=== PATIENT | female | born 1940 | race Two or more races ===

== ENCOUNTER → 2018-08-04 | Outpatient (CLI) | payer MEDICARE ==
[2018-08-04 11:15] VITALS: BP 107/54
[2018-08-04 12:35] VITALS: BP 125/60
--- NOTE | 2018-08-04 12:35 | NUR ---
CHF PT SAW TODAY WITH SON AND DAUGHTER IN LAW IN ATTENDANCE. PT AMBULATED WITH CANE OR WALKER AND USE OF OXYGEN AT 4 LPM. PT IS KNOWN PAH PT WHO RECENTLY MOVED INTO [facility] FROM [place]. PT PROVIDED MEDICATION LIST AND IS CURRENTLY ON DUAL THERAPY OF TADALAFIL 20 MG PO DAILY AND OPSUMMIT 10 MG PO DAILY. PT CURRENTLY ON MULTIPLE INHALED MEDS VIA NEBULIZER. BASELINE EKG COMPLETED. 6 MIN WALK TEST ATTEMPTED AND ABORTED AFTER 3 LAPS DUE TO HYPOXIA DOWN TO 74 %. REVIEWED DISEASE PROCESS OF PAH AND PROVIDED TEACHING AND REVIEW OF CARDIODYNAMICS WITH PT, DAUGHTER IN LAW AND SON. QUESTIONS DENIED. PT REPORTS UNDERSTANDING OF HOW TO ACCESS CARE AT DR QUINTERO OFFICE AND AT CHF /PAH CLINIC AND DENIES QUESTIONS ABOUT ANY HEALTHCARE CONCERNS.LABS TO BE DRAWN IN 1 WEEK. Discharge Instructions See e-MAR for any mediations given with this visit. Patient education given on disease process. Patient verbalized understanding. Previous labs reviewed. Patient discharged in stable condition with after care instructions and follow up appointment FOR NEXT Tuesday08/11/18. BASELINE EKG CARDIODYNAMICS 6 MWT
== END | disposition home or self-care (01) ==
LOC: CHF HDHVI 11:29
PROVIDERS: ATTEND Internal Medicine Cardiovascular Disease
DX: I27.21 Secondary pulmonary arterial hypertension (principal); R06.00 Dyspnea, unspecified
CPT/HCPCS: 93701; 94618; G0463

== ENCOUNTER → 2018-08-11 | Outpatient (CLI) | payer MEDICARE ==
[2018-08-11 08:30] VITALS: BP 109/47
[2018-08-11 10:20] LABS: Basophils # (auto) 0 uL; Eosinophils # (auto) 0.2 uL; Eosinophils % (auto) 3.8 % (0.0-7.0); Hematocrit 41.4 % (36.0-46.0); Hemoglobin 13.3 g/dL (12.2-16.2); Lymphocytes % (auto) 21.8 % (10.0-50.0); Mean Corpuscular Hemoglobin 27.1 pg (28.0-32.0); Mean Corpuscular Hgb Conc. 32.2 g/dL (32.0-36.0); Mean Corpuscular Volume 83.9 fL (80.0-100.0); Monocytes # (auto) 0.5 uL; Monocytes % (auto) 10.2 % (0.0-12.0); Neutrophils # (auto) 2.8 uL; Neutrophils % (auto) 63.2 % (37.0-80.0); Nucleated Red Blood Cells % 0.1 %; Platelet Count (auto) 271 10^3/uL (140-450); Red Blood Cells 4.93 10^6/uL (4.0-5.20); Red Cell Distribution Width 15.6 % (11.8-14.3); White Blood Cell 4.5 10^3/uL (4.4-10.8)
[2018-08-11 10:34] LABS: INR 2.27 (0.9-1.15); Partial Thromboplastin Time 41.3 sec (23.78-33.04)
[2018-08-11 10:35] VITALS: BP 112/52
--- NOTE | 2018-08-11 10:35 | NUR ---
CHF CLINIC Discharge Instructions See e-MAR for any mediations given with this visit. Patient education given on disease process. Patient verbalized understanding. Previous labs reviewed. Patient discharged in stable condition with after care instructions and follow up appointment. NOTE CARDIODYNAMICS PERFORMED BY GAMA ULLOA AND REVIEWED WITH PT BY KIMO CHRISTIANSON. DISEASE PROCESS REVIEWED WITH PT BY KIMO CHRISTIANSON. ECHO AND LE DOPPLER ON 08/16, CTA CHEST ON 08/18. Addendum: 10/13/18 at 1356 by Joy Guerra RN RN CARDIODYNAMICS PERFORMED ON 08/04/18 AND REVIEWED WITH PATIENT AND FAMILY ON 08/11/18 BY KIMO CHRISTIANSON.
[2018-08-11 10:40] LABS: Albumin 3.5 g/dL (3.4-5.0); BUN/Creatinine Ratio 11.6; Calcium 8.7 mg/dL (8.5-10.1); Magnesium 2.2 mg/dL (1.6-2.6)
[2018-08-11 10:43] LABS: Bilirubin, Total 0.7 mg/dL (0.2-1.0); Total Protein 7.2 g/dL (6.4-8.2)
[2018-08-11 10:47] LABS: Potassium 3.8 mmol/L (3.5-5.1)
== END | disposition home or self-care (01) ==
LOC: CHF HDHVI 08:30
PROVIDERS: ATTEND Internal Medicine Cardiovascular Disease
DX: I70.0 Atherosclerosis of aorta (principal); I48.91 Unspecified atrial fibrillation; I49.9 Cardiac arrhythmia, unspecified; I50.9 Heart failure, unspecified; E78.5 Hyperlipidemia, unspecified; R79.1 Abnormal coagulation profile; E03.9 Hypothyroidism, unspecified; D51.9 Vitamin B12 deficiency anemia, unspecified; I27.20 Pulmonary hypertension, unspecified; I51.7 Cardiomegaly; Z79.899 Other long term (current) drug therapy
CPT/HCPCS: 36415; 71046; 80053; 80061; 80162; 82306; 82607; 83036; 83735; 83880; 84443; 85025; 85610; 85730; G0463; 93701

== ENCOUNTER → 2018-08-16 | Outpatient (CLI) | payer MEDICARE ==
[2018-08-16 16:02] LABS: Anion Gap 9 (5-15); Blood Urea Nitrogen 9 mg/dL (7-18); Carbon Dioxide 27 mmol/L (21-32); Chloride 107 mmol/L (98-107); Glucose 83 mg/dL (74-106); Potassium 3.7 mmol/L (3.5-5.1); Sodium 143 mmol/L (136-145)
[2018-08-16 16:06] LABS: BUN/Creatinine Ratio 7.8; GFR African American 58 mL/min; GFR Non-African American 48 mL/min
== END | disposition home or self-care (01) ==
LOC: Rad HDHVI 12:36
PROVIDERS: ATTEND Internal Medicine Cardiovascular Disease
DX: I08.1 Rheumatic disorders of both mitral and tricuspid valves (principal); R94.4 Abnormal results of kidney function studies; I27.0 Primary pulmonary hypertension; R06.02 Shortness of breath; I50.9 Heart failure, unspecified; I73.9 Peripheral vascular disease, unspecified
CPT/HCPCS: 36415; 80048; 93306; 93971

== ENCOUNTER → 2018-08-18 | Outpatient (CLI) | payer MEDICARE ==
[~2018-08-18] MED LIST: IOHEXOL 350 MG/ML 100ML IJ ONE
[2018-08-18 08:53] VITALS: BP 122/60
--- NOTE | 2018-08-18 08:53 | NUR ---
IV insertion IV access obtained by Sarita CHRISTIANSON, via clean sterile technique by inserting 20 gauge catheter at [facility] after 1 attempt(s). IV secured properly. No trauma to site. Patient tolerated procedure well.
--- NOTE | 2018-08-18 09:20 | NUR ---
IV removal IV DC'd with sterile technique, catheter fully intact. Pressure dressing applied to site. Patient tolerated procedure well.
[2018-08-18 09:25] VITALS: BP 128/58
--- NOTE | 2018-08-18 09:25 | NUR ---
CHF CLINIC Discharge Instructions See e-MAR for any mediations given with this visit. Patient education given on disease process. Patient verbalized understanding. Previous labs reviewed. Patient discharged in stable condition with after care instructions and follow up appointment. NOTE PATIENT EDUCATED TO DRINK PLENTY FLUIDS OVER THE 24 HOURS, PATIENT VERBALIZED UNDERSTANDING.
== END | disposition home or self-care (01) ==
LOC: Rad HDHVI 08:46
PROVIDERS: ATTEND Internal Medicine Cardiovascular Disease
DX: J43.2 Centrilobular emphysema (principal); R91.1 Solitary pulmonary nodule; R94.4 Abnormal results of kidney function studies; I27.21 Secondary pulmonary arterial hypertension
CPT/HCPCS: 36415; 71275; 82565; G0463; Q9967

== ENCOUNTER → 2018-09-15 | Outpatient (CLI) | payer MEDICARE | END | disposition home or self-care (01) | LOC: CHF HDHVI 11:36 | PROVIDERS: ATTEND Internal Medicine Cardiovascular Disease | DX: R79.1 Abnormal coagulation profile (principal) | CPT/HCPCS: 85610 ==

== ENCOUNTER → 2018-09-29 | Outpatient (CLI) | payer MEDICARE ==
[~2018-09-29] MED LIST changes: +CYANOCOBALAMIN (B-12) 1000 MCG/1 ML VIAL IM ONE; +CYANOCOBALAMIN (B-12) 1000 MCG/1 ML VIAL ONE; -IOHEXOL 350 MG/ML 100ML IJ ONE
[2018-09-29 09:30] VITALS: BP 125/55
--- NOTE | 2018-09-29 09:30 | NUR ---
CHF PT TO CHF CLINIC FOR TX AND EVAL. CARDIODYNAMICS AND V/S OBTAINED. PT A/O X 3 0 DISTRESS
[2018-09-29 11:20] VITALS: BP 125/49
--- NOTE | 2018-09-29 11:20 | NUR ---
Discharge Instructions See e-MAR for any mediations given with this visit. Patient education given on disease process. Patient verbalized understanding. Previous labs reviewed. Patient discharged in stable condition with after care instructions and follow up appointment. MEDICATIONS 1110 VITAMIN B12 1000MCG IM X 1 LEFT DELTOID
--- NOTE | 2018-09-29 11:27 | NUR ---
LABS INR, CMP, CBC SENT
[2018-09-29 16:22] LABS: Basophils # (auto) 0 uL; Basophils % (auto) 0.9 % (0.0-2.0); Eosinophils # (auto) 0.2 uL; Eosinophils % (auto) 4.2 % (0.0-7.0); Hematocrit 40.9 % (36.0-46.0); Hemoglobin 13.4 g/dL (12.2-16.2); Lymphocytes % (auto) 22.1 % (10.0-50.0); Mean Corpuscular Hemoglobin 27.4 pg (28.0-32.0); Mean Corpuscular Hgb Conc. 32.7 g/dL (32.0-36.0); Mean Corpuscular Volume 83.8 fL (80.0-100.0); Monocytes # (auto) 0.6 uL; Monocytes % (auto) 12.1 % (0.0-12.0); Neutrophils # (auto) 2.9 uL; Neutrophils % (auto) 60.7 % (37.0-80.0); Nucleated Red Blood Cells % 0.1 %; Platelet Count (auto) 248 10^3/uL (140-450); Red Blood Cells 4.88 10^6/uL (4.0-5.20); Red Cell Distribution Width 16.3 % (11.8-14.3); White Blood Cell 4.7 10^3/uL (4.4-10.8)
[2018-09-29 16:30] LABS: Albumin 3.5 g/dL (3.4-5.0); Bilirubin, Total 0.8 mg/dL (0.2-1.0); Calcium 8.9 mg/dL (8.5-10.1); Total Protein 7.5 g/dL (6.4-8.2)
== END | disposition home or self-care (01) ==
LOC: CHF HDHVI 09:10
PROVIDERS: ATTEND Internal Medicine Cardiovascular Disease
DX: I27.21 Secondary pulmonary arterial hypertension (principal); D64.9 Anemia, unspecified; I10 Essential (primary) hypertension; I73.9 Peripheral vascular disease, unspecified; I08.1 Rheumatic disorders of both mitral and tricuspid valves; I49.9 Cardiac arrhythmia, unspecified; I48.91 Unspecified atrial fibrillation; J43.2 Centrilobular emphysema; E78.5 Hyperlipidemia, unspecified; E03.9 Hypothyroidism, unspecified; Z79.899 Other long term (current) drug therapy
CPT/HCPCS: 36415; 80053; 85025; 85610; 93701; 96372; G0463; J3420

== ENCOUNTER → 2018-10-27 | Outpatient (CLI) | payer MEDICARE ==
[2018-10-27 11:25] VITALS: BP 111/52
--- NOTE | 2018-10-27 11:25 | NUR ---
IN WITH SON IN ATTENDANCE. WITHOUT DISTRESS OR DISCOMFORT. CARDIODYNAMICS DONE AND REVIEWED BY KIMO RN. OXYGEN IN USE AT 4LPM. PAH STATUS AND TEACHING DONE BY GAMA ULLOA AND KIMO RN. RX FOR CALCITROL 0.25 MG PO DAILY TO [facility] [phone] MEDICATION ADMINISTRATION VIT B12 1000 MG IM X 1 TO LEFT DELTOID AT 1115
[2018-10-27 12:40] LABS: Basophils # (auto) 0 uL; Basophils % (auto) 0.8 % (0.0-2.0); Eosinophils # (auto) 0.1 uL; Eosinophils % (auto) 2.4 % (0.0-7.0); Hematocrit 41.4 % (36.0-46.0); Hemoglobin 13.5 g/dL (12.2-16.2); Lymphocytes % (auto) 18.9 % (10.0-50.0); Mean Corpuscular Hemoglobin 27.4 pg (28.0-32.0); Mean Corpuscular Hgb Conc. 32.7 g/dL (32.0-36.0); Mean Corpuscular Volume 83.8 fL (80.0-100.0); Monocytes # (auto) 0.6 uL; Monocytes % (auto) 10.9 % (0.0-12.0); Neutrophils # (auto) 3.6 uL; Nucleated Red Blood Cells % 0.2 %; Platelet Count (auto) 244 10^3/uL (140-450); Red Blood Cells 4.94 10^6/uL (4.0-5.20); Red Cell Distribution Width 15.8 % (11.8-14.3); White Blood Cell 5.3 10^3/uL (4.4-10.8)
[2018-10-27 13:17] LABS: Albumin 3.4 g/dL (3.4-5.0); BUN/Creatinine Ratio 9.6; Calcium 8.9 mg/dL (8.5-10.1); Magnesium 2.7 mg/dL (1.6-2.6); Potassium 3.8 mmol/L (3.5-5.1)
[2018-10-27 13:19] LABS: Bilirubin, Total 0.8 mg/dL (0.2-1.0); Total Protein 7.3 g/dL (6.4-8.2)
== END | disposition home or self-care (01) ==
LOC: CHF HDHVI 09:28
PROVIDERS: ATTEND Internal Medicine Cardiovascular Disease
DX: I27.0 Primary pulmonary hypertension (principal); D64.9 Anemia, unspecified; I48.91 Unspecified atrial fibrillation; E83.40 Disorders of magnesium metabolism, unspecified; J43.9 Emphysema, unspecified; E78.5 Hyperlipidemia, unspecified; E03.9 Hypothyroidism, unspecified; Z79.899 Other long term (current) drug therapy
CPT/HCPCS: 36415; 80053; 83036; 83735; 85025; 85610; 93701; 96372; G0463; J3420

== ENCOUNTER → 2018-12-08 | Outpatient (CLI) | payer MEDICARE ==
--- NOTE | 2018-12-08 09:42 | NUR ---
PT. TO PAH CLINIC FOR EVAL. AND TX . PT. HAS BEEN ON ADEMPAS FOR ONE WEEK, AND PRESENTS WITH COPY OF B/P DAILY LOG. PT. STATES SHE HAS BEEN ON ADEMPAS 0.5 MG TID AND TOLERATING MEDS WEEL. ORDERS RECEIVED AND CARRIED OUT. SEE NSG ASSESS.
[2018-12-08 09:55] VITALS: BP 118/55
--- NOTE | 2018-12-08 10:00 | NUR ---
LABS DONE WITH INR 6.6.. MD ADVISED OF PREVIOUS LEVEL AND PT. FOLLOW UP INSTRUCTIONS ON DOSING. PT. TO HOLD COUMADIN X 3 DAYS, THEN DO 3MGON ODD DAYS, AND 2MG ON EVEN DAYS. PT. ALSO INSTRUCTED TO HOLD DIGOXIN FOR ONE MORE DAY, THIS EVENING. INSTRUCTIONS GIVEN IN WRITING AND ALSO GIVEN TO DAUGHTER IN LAW.
--- NOTE | 2018-12-08 10:05 | NUR ---
EKG DONE WITH RSR WITH NO ECTOPY. HR 58-60
[2018-12-08 10:55] VITALS: BP 122/59
--- NOTE | 2018-12-08 10:55 | NUR ---
Discharge Instructions See e-MAR for any mediations given with this visit. Patient education given on disease process. Patient verbalized understanding. Previous labs reviewed. Patient discharged in stable condition with after care instructions and follow up appointment. PT. TO RTC IN ONE WEEK FOR REPEAT INR.
[2018-12-08 12:09] LABS: Basophils # (auto) 0.1 uL; Basophils % (auto) 1.2 % (0.0-2.0); Eosinophils # (auto) 0.2 uL; Eosinophils % (auto) 3.3 % (0.0-7.0); Hematocrit 42.9 % (36.0-46.0); Lymphocytes % (auto) 21.3 % (10.0-50.0); Mean Corpuscular Hemoglobin 27.4 pg (28.0-32.0); Mean Corpuscular Hgb Conc. 32.7 g/dL (32.0-36.0); Mean Corpuscular Volume 83.7 fL (80.0-100.0); Monocytes # (auto) 0.6 uL; Monocytes % (auto) 11.7 % (0.0-12.0); Neutrophils % (auto) 62.5 % (37.0-80.0); Platelet Count (auto) 238 10^3/uL (140-450); Red Blood Cells 5.13 10^6/uL (4.0-5.20); Red Cell Distribution Width 15.6 % (11.8-14.3); White Blood Cell 4.8 10^3/uL (4.4-10.8)
[2018-12-08 12:22] LABS: Potassium 3.5 mmol/L (3.5-5.1)
== END | disposition home or self-care (01) ==
LOC: EDBD → CHF HDHVI 09:56
PROVIDERS: ATTEND Internal Medicine Cardiovascular Disease
DX: I48.91 Unspecified atrial fibrillation (principal); D64.9 Anemia, unspecified; E87.6 Hypokalemia; Z79.899 Other long term (current) drug therapy
CPT/HCPCS: 36415; 80162; 82565; 84132; 84520; 85025; 85610; 93005; G0463

== ENCOUNTER → 2018-12-15 | Outpatient (CLI) | payer MEDICARE ==
[2018-12-15 09:44] VITALS: BP 126/51
--- NOTE | 2018-12-15 10:00 | NUR ---
IN FOR PAH FOLLOWUP. PT REPORTS "SOME PAIN IN RIGHT SIDE WITH TAKING A DEEP BREATH, BUT ITS BETTER NOW". PT REMAINS ON OXYGEN AT 2LPM FROM HOME. CXR TO BE DONE.
[2018-12-15 10:30] VITALS: BP 121/57
--- NOTE | 2018-12-15 10:30 | NUR ---
CHF CLINIC Discharge Instructions See e-MAR for any mediations given with this visit. Patient education given on disease process. Patient verbalized understanding. Previous labs reviewed. Patient discharged in stable condition with after care instructions and follow up appointment. NOTE INR 2.4 DOSE TO REMAIN THE SAME. B12 IM L DELTOID ADMIN BY LANDON CHRISTIANSON.
== END | disposition home or self-care (01) ==
LOC: CHF HDHVI 09:46
PROVIDERS: ATTEND Internal Medicine Cardiovascular Disease
DX: I48.91 Unspecified atrial fibrillation (principal); I25.10 Atherosclerotic heart disease of native coronary artery without angina pectoris; R53.83 Other fatigue; I27.21 Secondary pulmonary arterial hypertension; R06.02 Shortness of breath; J43.9 Emphysema, unspecified; I10 Essential (primary) hypertension; I70.0 Atherosclerosis of aorta; I51.7 Cardiomegaly; E78.5 Hyperlipidemia, unspecified; E03.9 Hypothyroidism, unspecified; Z79.899 Other long term (current) drug therapy
CPT/HCPCS: 71046; 85610; 96372; G0463; J3420

== ENCOUNTER → 2018-12-29 | Outpatient (CLI) | payer MEDICARE ==
[2018-12-29 09:58] VITALS: BP 125/55
[2018-12-29 11:10] VITALS: BP 121/58
--- NOTE | 2018-12-29 11:10 | NUR ---
CHF CLINIC Discharge Instructions See e-MAR for any mediations given with this visit. Patient education given on disease process. Patient verbalized understanding. Previous labs reviewed. Patient discharged in stable condition with after care instructions and follow up appointment. NOTE INR 2.2 PATIENT WILL KEEP TAKING CURRENT DOSE OF COUMADIN. CARDIODYNAMICS PERFORMED RICHIE ULLOA AND REVIEWED BY CANDACE CHRISTIANSON.
[2018-12-29 15:56] LABS: Potassium 3.6 mmol/L (3.5-5.1)
== END | disposition home or self-care (01) ==
LOC: CHF HDHVI 10:04
PROVIDERS: ATTEND Internal Medicine Cardiovascular Disease
DX: E87.6 Hypokalemia (principal); R94.4 Abnormal results of kidney function studies; I27.21 Secondary pulmonary arterial hypertension
CPT/HCPCS: 36415; 82565; 84132; 84520; 85610; 93701; G0463

== ENCOUNTER → 2019-01-12 | Outpatient (CLI) | payer MEDICARE ==
[2019-01-12 09:45] VITALS: BP 108/45
--- NOTE | 2019-01-12 10:04 | NUR ---
IN TO CLINIC FOR PAH FOLLOWUP. OXYGEN IN USE AT 5 LPM WITH SPO2 AT 92 %. USES WALKER AND PORTABLE OXYGEN FROM HOME. WITHOUT COMPLAINT. REPORTS FEELING WELL BUT FATIGUED. FAMILY IN ATTENDANCE. STATUS REVIEWED AND MEDICATION EVALUATED. ALL CARE ADMINISTERED BY CANDACE CHRISTIANSON. DISCHARGED TO SELF CARE WITH FAMILY IN ATTENDANCE. MEDICATION ADMINISTRATION VIT B12 IM TO LEFT DELTOID AT 1000
[2019-01-12 10:09] VITALS: BP 111/50
[2019-01-12 12:17] LABS: Basophils # (auto) 0 uL; Basophils % (auto) 0.8 % (0.0-2.0); Eosinophils # (auto) 0.2 uL; Eosinophils % (auto) 3.6 % (0.0-7.0); Hematocrit 41.5 % (36.0-46.0); Hemoglobin 13.9 g/dL (12.2-16.2); Lymphocytes # (auto) 1.3 uL; Lymphocytes % (auto) 21.7 % (10.0-50.0); Mean Corpuscular Hemoglobin 28.1 pg (28.0-32.0); Mean Corpuscular Hgb Conc. 33.5 g/dL (32.0-36.0); Mean Corpuscular Volume 83.8 fL (80.0-100.0); Monocytes # (auto) 0.6 uL; Monocytes % (auto) 9.6 % (0.0-12.0); Neutrophils # (auto) 3.8 uL; Neutrophils % (auto) 64.3 % (37.0-80.0); Nucleated Red Blood Cells % 0.1 %; Platelet Count (auto) 244 10^3/uL (140-450); Red Blood Cells 4.96 10^6/uL (4.0-5.20); Red Cell Distribution Width 15.6 % (11.8-14.3); White Blood Cell 5.8 10^3/uL (4.4-10.8)
[2019-01-12 13:17] LABS: Albumin 3.6 g/dL (3.4-5.0); Calcium 8.8 mg/dL (8.5-10.1); Magnesium 2.4 mg/dL (1.6-2.6); Potassium 3.8 mmol/L (3.5-5.1)
[2019-01-12 13:19] LABS: BUN/Creatinine Ratio 10.8
[2019-01-12 13:25] LABS: Total Protein 7.2 g/dL (6.4-8.2)
== END | disposition home or self-care (01) ==
LOC: CHF HDHVI 09:42
PROVIDERS: ATTEND Internal Medicine Cardiovascular Disease
DX: I27.21 Secondary pulmonary arterial hypertension (principal); R53.83 Other fatigue; I48.91 Unspecified atrial fibrillation; I25.10 Atherosclerotic heart disease of native coronary artery without angina pectoris; I10 Essential (primary) hypertension; D64.9 Anemia, unspecified; E83.40 Disorders of magnesium metabolism, unspecified; J43.9 Emphysema, unspecified; E78.5 Hyperlipidemia, unspecified; E03.9 Hypothyroidism, unspecified; Z79.899 Other long term (current) drug therapy; Z99.81 Dependence on supplemental oxygen
CPT/HCPCS: 36415; 80053; 83735; 85025; 96372; G0463; J3420

== ENCOUNTER → 2019-01-22 | Outpatient (CLI) | payer MEDICARE, MEDICAID ==
[~2019-01-22] MED LIST changes: +ALBUAER3 IN; +ATOR10TA52 PO; -CYANOCOBALAMIN (B-12) 1000 MCG/1 ML VIAL IM ONE; -CYANOCOBALAMIN (B-12) 1000 MCG/1 ML VIAL ONE; +DIGO0.1262 PO; +FURO40TA4 PO; +MACI1TAB2 PO; +PANT40TA2 PO; +POTA-220 PO; +WARF2TAB49 PO; +WARF3TAB22 PO
[2019-01-22 10:25] VITALS: BP 106/48
[2019-01-22 10:54] VITALS: BP 116/50
--- NOTE | 2019-01-22 10:54 | NUR ---
PRE-OP FOR LEFT AND RIGHT HEART CATH FOR 01/25/19 Pre-Op Discharge Summary: See e-MAR for any medications given for this visit. Pre-op orders received and carried out per MD of EKG, LABS and chest xrays. Patient given a copy of EKG with instructions to go to [facility] out patient for further follow up care.
[2019-01-22 11:57] LABS: Basophils # (auto) 0 uL; Basophils % (auto) 0.8 % (0.0-2.0); Eosinophils # (auto) 0.2 uL; Eosinophils % (auto) 4.3 % (0.0-7.0); Hematocrit 41.6 % (36.0-46.0); Hemoglobin 13.8 g/dL (12.2-16.2); Lymphocytes # (auto) 1.2 uL; Lymphocytes % (auto) 21.7 % (10.0-50.0); Mean Corpuscular Hemoglobin 27.9 pg (28.0-32.0); Mean Corpuscular Hgb Conc. 33.3 g/dL (32.0-36.0); Mean Corpuscular Volume 83.8 fL (80.0-100.0); Monocytes # (auto) 0.5 uL; Monocytes % (auto) 9.8 % (0.0-12.0); Neutrophils # (auto) 3.5 uL; Neutrophils % (auto) 63.4 % (37.0-80.0); Nucleated Red Blood Cells % 0.1 %; Platelet Count (auto) 259 10^3/uL (140-450); Red Blood Cells 4.97 10^6/uL (4.0-5.20); Red Cell Distribution Width 16.2 % (11.8-14.3); White Blood Cell 5.5 10^3/uL (4.4-10.8)
[2019-01-22 12:07] LABS: Potassium 3.8 mmol/L (3.5-5.1)
[2019-01-22 12:10] LABS: INR 1.51 (0.9-1.15)
[2019-01-22 12:12] LABS: BUN/Creatinine Ratio 8.7; Calcium 8.9 mg/dL (8.5-10.1)
== END | disposition home or self-care (01) ==
LOC: Rad HDHVI 09:58
PROVIDERS: ATTEND Internal Medicine Cardiovascular Disease
DX: Z01.812 Encounter for preprocedural laboratory examination (principal); R79.1 Abnormal coagulation profile
CPT/HCPCS: 36415; 71046; 80048; 85025; 85610; 85730; 93005; G0463

== ENCOUNTER 2019-01-25 06:55 | Day surgery (SDC) | payer MEDICARE, MEDICAID ==
[~2019-01-25] VITALS: Ht 157.5 cm; Wt 68.9 kg
[2019-01-25] MEDS ORDERED: IOHEXOL 350 MG/ML 100ML IJ ONE (07:43)
[2019-01-25] MEDS ORDERED: LIDOCAINE 2%HCL (LOCAL ANESTH.) INJ 20ML MDV ONE (07:44)
[2019-01-25] MEDS ORDERED: fentaNYL CITRATE 100 MCG/2 ML VL ONE (08:59)
[2019-01-25] MEDS ORDERED: ANGIOMAX 250 MG VIAL IV ONE (08:59)
[2019-01-25] MEDS ORDERED: SODIUM CHL 0.9% 0 ML ONE (09:00)
[2019-01-25] MEDS ORDERED: MIDAZOLAM HCL 1MG/1ML-2 ML VIAL ONE (09:00)
== END 2019-01-25 12:20 | disposition home or self-care (01) ==
LOC: CATH 06:55
PROVIDERS: ATTEND Internal Medicine Cardiovascular Disease
DX: I27.20 Pulmonary hypertension, unspecified (principal); E78.5 Hyperlipidemia, unspecified; J44.9 Chronic obstructive pulmonary disease, unspecified; Z87.891 Personal history of nicotine dependence; I11.0 Hypertensive heart disease with heart failure; I50.9 Heart failure, unspecified; Z86.718 Personal history of other venous thrombosis and embolism; Z79.899 Other long term (current) drug therapy
CPT/HCPCS: 93460; C1760; C1894; J1644; J2250; J3010; Q9967; 99152; 99153

== ENCOUNTER → 2019-02-16 | Outpatient (CLI) | payer MEDICARE, MEDICAID ==
[~2019-02-16] VITALS: Ht 30.5 cm; Wt 69.4 kg
[~2019-02-16] MED LIST changes: +CYANOCOBALAMIN (B-12) 1000 MCG/1 ML VIAL IM ONE; +CYANOCOBALAMIN (B-12) 1000 MCG/1 ML VIAL ONE
[2019-02-16 09:30] VITALS: BP 113/38
[2019-02-16 11:16] VITALS: BP 119/58
--- NOTE | 2019-02-16 11:16 | NUR ---
Discharge Instructions See e-MAR for any mediations given with this visit. Patient education given on disease process. Patient verbalized understanding. Previous labs reviewed. Patient discharged in stable condition with after care instructions and follow up appointment. NOTE: CARDIODYNAMICS 6MWT VIT B12 RIGHT DELTOID PATIENT TO TITRATE ADEMPAS UP TO 2.0 MG TID WITH NEXT MEDICATION REFILL
== END | disposition home or self-care (01) ==
LOC: CHF HDHVI 09:45
PROVIDERS: ATTEND Internal Medicine Cardiovascular Disease
DX: I27.21 Secondary pulmonary arterial hypertension (principal); R06.02 Shortness of breath; R53.83 Other fatigue; J44.9 Chronic obstructive pulmonary disease, unspecified; I50.9 Heart failure, unspecified; E78.5 Hyperlipidemia, unspecified; I25.10 Atherosclerotic heart disease of native coronary artery without angina pectoris; I48.91 Unspecified atrial fibrillation; E03.9 Hypothyroidism, unspecified; Z79.899 Other long term (current) drug therapy; Z87.891 Personal history of nicotine dependence; Z86.718 Personal history of other venous thrombosis and embolism; Z79.01 Long term (current) use of anticoagulants; Z99.81 Dependence on supplemental oxygen
CPT/HCPCS: 85610; 93701; 94618; 96372; G0463; J3420

== ENCOUNTER → 2019-03-21 | Outpatient (CLI) | payer MEDICARE, MEDICAID ==
[~2019-03-21] MED LIST changes: -CYANOCOBALAMIN (B-12) 1000 MCG/1 ML VIAL IM ONE; -CYANOCOBALAMIN (B-12) 1000 MCG/1 ML VIAL ONE
== END | disposition home or self-care (01) ==
LOC: LAB 12:22
PROVIDERS: ATTEND Internal Medicine Cardiovascular Disease
DX: I11.0 Hypertensive heart disease with heart failure (principal); I50.23 Acute on chronic systolic (congestive) heart failure
CPT/HCPCS: 83880

== ENCOUNTER → 2019-03-30 | Outpatient (CLI) | payer MEDICARE, MEDICAID ==
[~2019-03-30] MED LIST changes: +CYANOCOBALAMIN (B-12) 1000 MCG/1 ML VIAL IM ONE; +CYANOCOBALAMIN (B-12) 1000 MCG/1 ML VIAL ONE
[2019-03-30 08:45] VITALS: BP 99/44
[2019-03-30 09:57] VITALS: BP 111/55
--- NOTE | 2019-03-30 09:57 | NUR ---
CHF CLINIC Discharge Instructions See e-MAR for any mediations given with this visit. Patient education given on disease process. Patient verbalized understanding. Previous labs reviewed. Patient discharged in stable condition with after care instructions and follow up appointment. NOTES INR checked 2.1, pt to continue current Coumadin dose B12 IM L DELTOID ADMIN BY GAMA ULLOA CARDIODYNAMICS, REVIEW WITH PT BY CANDACE CHRISTIANSON AND COPY PROVIDED TO PT.
[2019-03-30 11:40] LABS: Basophils # (auto) 0 uL; Basophils % (auto) 0.9 % (0.0-2.0); Eosinophils # (auto) 0.2 uL; Eosinophils % (auto) 3.4 % (0.0-7.0); Hematocrit 42.7 % (36.0-46.0); Hemoglobin 14.1 g/dL (12.2-16.2); Lymphocytes # (auto) 0.9 uL; Lymphocytes % (auto) 19.1 % (10.0-50.0); Mean Corpuscular Hemoglobin 27.3 pg (28.0-32.0); Mean Corpuscular Hgb Conc. 33.1 g/dL (32.0-36.0); Mean Corpuscular Volume 82.5 fL (80.0-100.0); Monocytes # (auto) 0.5 uL; Neutrophils % (auto) 65.6 % (37.0-80.0); Nucleated Red Blood Cells % 0.2 %; Platelet Count (auto) 258 10^3/uL (140-450); Red Blood Cells 5.18 10^6/uL (4.0-5.20); Red Cell Distribution Width 15.9 % (11.8-14.3); White Blood Cell 4.6 10^3/uL (4.4-10.8)
[2019-03-30 11:49] LABS: Albumin 3.5 g/dL (3.4-5.0); Calcium 8.6 mg/dL (8.5-10.1); Magnesium 2.8 mg/dL (1.6-2.6); Potassium 3.8 mmol/L (3.5-5.1)
[2019-03-30 11:53] LABS: BUN/Creatinine Ratio 12.8; Total Protein 7.4 g/dL (6.4-8.2)
== END | disposition home or self-care (01) ==
LOC: CHF HDHVI 08:44
PROVIDERS: ATTEND Internal Medicine Cardiovascular Disease
DX: I27.21 Secondary pulmonary arterial hypertension (principal); I48.91 Unspecified atrial fibrillation; I11.0 Hypertensive heart disease with heart failure; I50.22 Chronic systolic (congestive) heart failure; I25.10 Atherosclerotic heart disease of native coronary artery without angina pectoris; D64.9 Anemia, unspecified; E83.40 Disorders of magnesium metabolism, unspecified; R53.83 Other fatigue; J44.9 Chronic obstructive pulmonary disease, unspecified; E78.5 Hyperlipidemia, unspecified; E03.9 Hypothyroidism, unspecified; Z79.01 Long term (current) use of anticoagulants; Z87.891 Personal history of nicotine dependence; Z79.899 Other long term (current) drug therapy; Z86.718 Personal history of other venous thrombosis and embolism; Z99.81 Dependence on supplemental oxygen
CPT/HCPCS: 36415; 80053; 80162; 83735; 85025; 93701; 96372; G0463; J3420

== ENCOUNTER → 2019-04-13 | Outpatient (CLI) | payer MEDICARE, MEDICAID ==
[~2019-04-13] MED LIST changes: -CYANOCOBALAMIN (B-12) 1000 MCG/1 ML VIAL IM ONE; -CYANOCOBALAMIN (B-12) 1000 MCG/1 ML VIAL ONE; +DIGO0.12 PO; -DIGO0.1262 PO; +IOHEXOL 350 MG/ML 100ML IJ ONE
[2019-04-13 11:41] VITALS: BP 126/41
--- NOTE | 2019-04-13 11:45 | NUR ---
IV insertion IV access obtained, via clean sterile technique by inserting 22 gauge catheter at RAC after 1 attempt(s). IV secured properly. No trauma to site. Patient tolerated procedure well.
--- NOTE | 2019-04-13 13:35 | NUR ---
IV removal IV DC'd with sterile technique, catheter fully intact. Pressure dressing applied to site. Patient tolerated procedure well.
[2019-04-13 13:37] VITALS: BP 110/52
--- NOTE | 2019-04-13 13:37 | NUR ---
CHF CLINIC Discharge Instructions See e-MAR for any mediations given with this visit. Patient education given on disease process. Patient verbalized understanding. Previous labs reviewed. Patient discharged in stable condition with after care instructions and follow up appointment. NOTE PATIENT EDUCATED TO DRINK PLENTY OF FLUIDS, PATIENT VERBALIZED UNDERSTANDING.
== END | disposition home or self-care (01) ==
LOC: Rad HDHVI 11:29
PROVIDERS: ATTEND Internal Medicine Cardiovascular Disease
DX: I67.2 Cerebral atherosclerosis (principal); I67.82 Cerebral ischemia; I67.1 Cerebral aneurysm, nonruptured; R94.4 Abnormal results of kidney function studies
CPT/HCPCS: 36415; 70470; 82565; G0463; Q9967

== ENCOUNTER → 2019-05-02 | Outpatient (CLI) | payer MEDICARE, MEDICAID ==
[~2019-05-02] VITALS: Ht 30.5 cm; Wt 67.0 kg
[~2019-05-02] MED LIST changes: +CYANOCOBALAMIN (B-12) 1000 MCG/1 ML VIAL IM ONE; +CYANOCOBALAMIN (B-12) 1000 MCG/1 ML VIAL ONE; -IOHEXOL 350 MG/ML 100ML IJ ONE
[2019-05-02 10:00] VITALS: BP 92/50
[2019-05-02 11:08] VITALS: BP 160/55
--- NOTE | 2019-05-02 11:08 | NUR ---
CHF CLINIC Discharge Instructions See e-MAR for any mediations given with this visit. Patient education given on disease process. Patient verbalized understanding. Previous labs reviewed. Patient discharged in stable condition with after care instructions and follow up appointment. NOTES CARDIODYNAMICS PERFORMED BY GAMA ULLOA, RESULTS REVIEWED WITH PT BY CANDACE CHRISTIANSON AND COPY PROVIDED TO PT. VIT B12 IM X1 LEFT DELTOID INR CHECKED BY GAMA CHRISTIANSON, INR 2.2. PT EDUCATED TO CONTINUE CURRENT COUMADIN REGIMEN OF ALTERNATING 2 MG AND 3 MG. PT VERBALIZED UNDERSTANDING.
== END | disposition home or self-care (01) ==
LOC: CHF HDHVI 08:53
PROVIDERS: ATTEND Internal Medicine Cardiovascular Disease
DX: I27.21 Secondary pulmonary arterial hypertension (principal); I11.0 Hypertensive heart disease with heart failure; I50.23 Acute on chronic systolic (congestive) heart failure; I48.91 Unspecified atrial fibrillation; R42 Dizziness and giddiness; R53.83 Other fatigue; R06.02 Shortness of breath; R07.89 Other chest pain; Z79.899 Other long term (current) drug therapy
CPT/HCPCS: 85610; 93306; 93701; 96372; G0463; J3420

== ENCOUNTER → 2019-06-04 | Outpatient (CLI) | payer MEDICARE, MEDICAID ==
[2019-06-04 10:45] VITALS: BP 97/48
[2019-06-04 11:09] VITALS: BP 96/47
--- NOTE | 2019-06-04 11:09 | NUR ---
CHF CLINIC Discharge Instructions See e-MAR for any mediations given with this visit. Patient education given on disease process. Patient verbalized understanding. Previous labs reviewed. Patient discharged in stable condition with after care instructions and follow up appointment ONE MONTH. NOTE B12 IM L DELTOID ADMIN BY CANDACE CHRISTIANSON INR 2.3, PATIENT WILL STAY ON 2/3 MG OF COUMADIN DAILY.
[2019-06-04 12:17] LABS: Eosinophils # (auto) 0.1 uL; Monocytes # (auto) 0.5 uL; Neutrophils # (auto) 3.2 uL
[2019-06-04 12:20] LABS: Basophils # (auto) 0.1 uL; Basophils % (auto) 1.1 % (0.0-2.0); Eosinophils % (auto) 2.6 % (0.0-7.0); Hematocrit 44.8 % (36.0-46.0); Hemoglobin 14.6 g/dL (12.2-16.2); Lymphocytes % (auto) 20.3 % (10.0-50.0); Mean Corpuscular Hemoglobin 26.4 pg (28.0-32.0); Mean Corpuscular Hgb Conc. 32.7 g/dL (32.0-36.0); Mean Corpuscular Volume 80.8 fL (80.0-100.0); Nucleated Red Blood Cells % 0.1 %; Platelet Count (auto) 248 10^3/uL (140-450); Red Blood Cells 5.54 10^6/uL (4.0-5.20); White Blood Cell 4.8 10^3/uL (4.4-10.8)
[2019-06-04 12:31] LABS: Albumin 3.8 g/dL (3.4-5.0); Calcium 9.4 mg/dL (8.5-10.1); Magnesium 2.1 mg/dL (1.6-2.6); Potassium 3.4 mmol/L (3.5-5.1)
[2019-06-04 12:35] LABS: BUN/Creatinine Ratio 8.7; Bilirubin, Total 1.2 mg/dL (0.2-1.0)
== END | disposition home or self-care (01) ==
LOC: LAB 09:48
PROVIDERS: ATTEND Internal Medicine Cardiovascular Disease
DX: I27.21 Secondary pulmonary arterial hypertension (principal); I11.0 Hypertensive heart disease with heart failure; I50.22 Chronic systolic (congestive) heart failure; I48.91 Unspecified atrial fibrillation; R53.83 Other fatigue; D64.9 Anemia, unspecified; Z99.81 Dependence on supplemental oxygen; Z79.899 Other long term (current) drug therapy
CPT/HCPCS: 36415; 80053; 83036; 83735; 85025; 85610; 93701; 96372; G0463; J3420

== ENCOUNTER → 2019-08-21 | Outpatient (CLI) | payer MEDICARE, MEDICAID ==
[~2019-08-21] MED LIST changes: -CYANOCOBALAMIN (B-12) 1000 MCG/1 ML VIAL IM ONE; -CYANOCOBALAMIN (B-12) 1000 MCG/1 ML VIAL ONE
== END | disposition home or self-care (01) ==
LOC: Rad HDHVI 14:53
PROVIDERS: ATTEND Internal Medicine Cardiovascular Disease
DX: I27.21 Secondary pulmonary arterial hypertension (principal)
CPT/HCPCS: 93306

== ENCOUNTER → 2019-10-02 | Outpatient (CLI) | payer MEDICARE, MEDICAID ==
[~2019-10-02] VITALS: Ht 30.5 cm; Wt 0.5 kg
[~2019-10-02] MED LIST changes: +D5W/SOD CHLO 0.9% 1,000 ML IV ONE; +KETOROLAC TROMETH 30 MG/ML 1ML VIAL IM ONE; +KETOROLAC TROMETH 30 MG/ML 1ML VIAL IV ONE; +KETOROLAC TROMETH 60MG/2ML VIAL ONE; +READI-CAT 2 (BARIUM SULF)(VANILLA SMOOTHIE) 450ML ONE; +SODIUM CHLORIDE 0.9% 500 ML IV ONE
[2019-10-02 14:43] LABS: Basophils # (auto) 0.1 10 ^3/uL (0-0.2); Basophils % (auto) 0.9 % (0.0-2.0); Eosinophils # (auto) 0.2 10 ^3/uL (0-0.8); Eosinophils % (auto) 2.2 % (0.0-7.0); Hematocrit 46.8 % (36.0-46.0); Hemoglobin 15.5 g/dL (12.2-16.2); Lymphocytes # (auto) 0.9 10 ^3/uL (0.4-5.4); Lymphocytes % (auto) 12.6 % (10.0-50.0); Mean Corpuscular Volume 84.8 fL (80.0-100.0); Monocytes # (auto) 0.5 10 ^3/uL (0-1.3); Monocytes % (auto) 7.6 % (0.0-12.0); Neutrophils # (auto) 5.4 10 ^3/uL (1.6-8.6); Neutrophils % (auto) 76.7 % (37.0-80.0); Nucleated Red Blood Cells % 0.1 %; Platelet Count (auto) 281 10^3/uL (140-450); Red Blood Cells 5.52 10^6/uL (4.0-5.20); Red Cell Distribution Width 15.3 % (11.8-14.3); White Blood Cell 7.1 10^3/uL (4.4-10.8)
[2019-10-02 14:52] LABS: Calcium 9.3 mg/dL (8.5-10.1); Potassium 3.7 mmol/L (3.5-5.1)
[2019-10-02 14:55] LABS: BUN/Creatinine Ratio 10.3; Bilirubin, Total 1.7 mg/dL (0.2-1.0); Total Protein 8.1 g/dL (6.4-8.2)
== END | disposition home or self-care (01) ==
LOC: Rad HDHVI 12:23
PROVIDERS: ATTEND Internal Medicine Cardiovascular Disease
DX: K90.9 Intestinal malabsorption, unspecified (principal); R11.2 Nausea with vomiting, unspecified; I10 Essential (primary) hypertension; D64.9 Anemia, unspecified; K44.9 Diaphragmatic hernia without obstruction or gangrene; R91.8 Other nonspecific abnormal finding of lung field
CPT/HCPCS: 36415; 74176; 80053; 82306; 85025; 96361; 96372; 96374; G0463; J1642; J1885; J7040; J7070; 96360; 96367

== ENCOUNTER → 2019-10-03 | Outpatient (CLI) | payer MEDICARE, MEDICAID ==
[~2019-10-03] MED LIST changes: +D5 IV ONE; -D5W/SOD CHLO 0.9% 1,000 ML IV ONE; +GASTROGRAFIN 120 ML SOL ONE; -KETOROLAC TROMETH 30 MG/ML 1ML VIAL IM ONE; -KETOROLAC TROMETH 30 MG/ML 1ML VIAL IV ONE; -KETOROLAC TROMETH 60MG/2ML VIAL ONE; -READI-CAT 2 (BARIUM SULF)(VANILLA SMOOTHIE) 450ML ONE; +SOD CHLO IV ONE; +SODIUM CHLORIDE 0.9% 250 ML IV ONE; -SODIUM CHLORIDE 0.9% 500 ML IV ONE
[2019-10-03 10:36] LABS: Basophils # (auto) 0 10 ^3/uL (0-0.2); Basophils % (auto) 0.3 % (0.0-2.0); Eosinophils # (auto) 0.1 10 ^3/uL (0-0.8); Eosinophils % (auto) 2.5 % (0.0-7.0); Hematocrit 44.7 % (36.0-46.0); Hemoglobin 14.4 g/dL (12.2-16.2); Lymphocytes # (auto) 0.6 10 ^3/uL (0.4-5.4); Lymphocytes % (auto) 11.9 % (10.0-50.0); Mean Corpuscular Hemoglobin 27.6 pg (28.0-32.0); Mean Corpuscular Hgb Conc. 32.2 g/dL (32.0-36.0); Mean Corpuscular Volume 85.7 fL (80.0-100.0); Monocytes # (auto) 0.4 10 ^3/uL (0-1.3); Neutrophils # (auto) 4.2 10 ^3/uL (1.6-8.6); Neutrophils % (auto) 77.3 % (37.0-80.0); Nucleated Red Blood Cells % 0.1 %; Platelet Count (auto) 259 10^3/uL (140-450); Red Blood Cells 5.22 10^6/uL (4.0-5.20); Red Cell Distribution Width 15.4 % (11.8-14.3); White Blood Cell 5.4 10^3/uL (4.4-10.8)
[2019-10-03 10:58] LABS: Potassium 3.9 mmol/L (3.5-5.1)
[2019-10-03 15:30] VITALS: BP 105/44
[2019-10-03 16:20] VITALS: BP 97/51
== END | disposition home or self-care (01) ==
LOC: CHF HDHVI 09:12
PROVIDERS: ATTEND Internal Medicine Cardiovascular Disease
DX: E86.0 Dehydration (principal); I27.21 Secondary pulmonary arterial hypertension; R06.02 Shortness of breath; E87.6 Hypokalemia; R53.83 Other fatigue; R53.1 Weakness; R94.4 Abnormal results of kidney function studies; J98.11 Atelectasis; I10 Essential (primary) hypertension; Z99.81 Dependence on supplemental oxygen
CPT/HCPCS: 36415; 71046; 74018; 74250; 82565; 84132; 84520; 85025; 96360; 96361; G0463; J7050; J7060; Q9963

== ENCOUNTER 2019-10-20 21:25 | Inpatient (IN) | payer MEDICARE, MEDICAID ==
[~2019-10-20] VITALS: Ht 157.5 cm; Wt 64.7 kg
[~2019-10-20 21:25] MED LIST changes: -D5 IV ONE; -GASTROGRAFIN 120 ML SOL ONE; -SOD CHLO IV ONE; -SODIUM CHLORIDE 0.9% 250 ML IV ONE
[2019-10-20 22:41] LABS: Basophils # (auto) 0 10 ^3/uL (0-0.2); Eosinophils # (auto) 0.1 10 ^3/uL (0-0.8); Eosinophils % (auto) 1.3 % (0.0-7.0); Lymphocytes # (auto) 0.6 10 ^3/uL (0.4-5.4); Mean Corpuscular Hgb Conc. 32.7 g/dL (32.0-36.0); Monocytes # (auto) 0.5 10 ^3/uL (0-1.3)
[2019-10-20 22:43] LABS: Basophils % (auto) 0.5 % (0.0-2.0); Hematocrit 50.2 % (36.0-46.0); Hemoglobin 16.4 g/dL (12.2-16.2); Lymphocytes % (auto) 7.5 % (10.0-50.0); Mean Corpuscular Hemoglobin 27.6 pg (28.0-32.0); Mean Corpuscular Volume 84.5 fL (80.0-100.0); Monocytes % (auto) 6.3 % (0.0-12.0); Neutrophils # (auto) 6.8 10 ^3/uL (1.6-8.6); Neutrophils % (auto) 84.4 % (37.0-80.0); Nucleated Red Blood Cells % 0.1 %; Platelet Count (auto) 296 10^3/uL (140-450); Red Blood Cells 5.94 10^6/uL (4.0-5.20); Red Cell Distribution Width 15.2 % (11.8-14.3); White Blood Cell 8.1 10^3/uL (4.4-10.8)
[2019-10-20 22:56] LABS: Calcium 9.3 mg/dL (8.5-10.1); Chloride 103 mmol/L (98-107); Lipase 126 U/L (73-393); Potassium 3.8 mmol/L (3.5-5.1); Sodium 139 mmol/L (136-145)
[2019-10-20 22:57] LABS: Alanine Aminotransferase 13 U/L (13-56); Albumin 3.9 g/dL (3.4-5.0); Anion Gap 8 (5-15); Aspartate Aminotransferase 13 U/L (15-37); BUN/Creatinine Ratio 9.4; Blood Urea Nitrogen 16 mg/dL (7-18); Carbon Dioxide 28 mmol/L (21-32); GFR African American 37 mL/min; GFR Non-African American 31 mL/min; Glucose 112 mg/dL (74-106); Magnesium 2.3 mg/dL (1.6-2.6)
[2019-10-20 23:03] LABS: Alkaline Phosphatase 116 U/L (45-117); Bilirubin, Total 1.5 mg/dL (0.2-1.0); Total Protein 8.2 g/dL (6.4-8.2)
[2019-10-21 01:19] LABS: INR 2.48 (0.9-1.15); Partial Thromboplastin Time 39.6 sec (23.64-32.05)
[2019-10-21] MEDS ORDERED: cefTRIAXone 1GM/50ML D5W 50 ML IV ONE (04:45)
[2019-10-21] MEDS ORDERED: AZITHROMYCIN 500MG/ 250ML 250 ML IV ONE (04:45)
[2019-10-21 09:22] LABS: Urine Bacteria FEW /hpf (None Seen); Urine Blood Negative /uL (Negative); Urine Mucus FEW (None Seen); Urine Specific Gravity 1.022 (1.001-1.035); Urine WBC 2 /hpf (0 - 5)
[2019-10-21] MEDS ORDERED: ALBUTEROL SULF 2.5 MG/0.5ML(0.5%) NEB SOLN NEB PRN (09:30)
[2019-10-21] MEDS: PANTOPRAZOLE 40 MG/10 ML VIAL INJ IV SCH (10:07)
[2019-10-21] MEDS: SODIUM CHLORIDE 0.9% 1,000 ML IV SCH ×2 (10:07→23:05)
[2019-10-21] MEDS: ENOXAPARIN SOD 60 MG/0.6 ML SYRINGE SC SCH (10:07)
[2019-10-21] MEDS: METOCLOPRAMIDE HCL 5MG/ml INJ 2ml VIAL IV SCH ×2 (14:03→22:09)
[2019-10-21] MEDS: PIPERACILLIN-TAZO 4.5GM 100 ML IV SCH ×2 (14:04→23:14)
--- NOTE | 2019-10-21 16:45 | NUR ---
MED/SURG admit from ER SOL [facility]ARKER admitted to Telemetry unit no SBAR received from BULK SUGAR HANDLER Adi. Patient oriented to Shelbie White RN primary RN, unit, room, bed, and unit policies regarding patient care and visiting hours. Patient placed on bedside oxygen, weighed by bedscale and encouraged to call if they need something. All questions and concerns addressed, patient verbalized understanding.
[2019-10-21] MEDS ORDERED: METO25TA93 PO (17:51)
[2019-10-21] MEDS ORDERED: CALC0.25 PO (17:51)
[2019-10-21] MEDS ORDERED: RIOC1TAB7 PO (17:51)
[2019-10-21 17:52] VITALS: BP 92/51
--- NOTE | 2019-10-21 18:46 | NUR ---
CLOSING SHIFT NOTE PATIENT HAS NO S/S OF DISTRESS/SOB OR PAIN AT THIS TIME. WILL ENDORSE CARE TO INSURANCE TERRITORY MANAGER RN.
--- NOTE | 2019-10-21 19:13 | NUR ---
Opening Shift Note Assumed care of patient. Patient is awake, alert, and oriented X 4. No S/S of respiratory distress noted. Respirations are regular, non-labored. No pain, nausea, or vomiting reported. Pt is on 4 lpm NC. Bed in lowest possible position, brakes locked, side rails up X 2, call light within reach. POC discussed with the patient. Patient instructed to call for assistance PRN. Will continue to monitor for changes Q1hr and PRN.
[2019-10-21 20:00] VITALS: BP 84/40
[2019-10-21 22:00] VITALS: BP 84/40
[2019-10-22] VITALS (7 sets, daily range): BP systolic 78–102; BP diastolic 41–61
[2019-10-22] MEDS: METOCLOPRAMIDE HCL 5MG/ml INJ 2ml VIAL IV SCH ×3 (06:11→22:34)
[2019-10-22] MEDS: PIPERACILLIN-TAZO 4.5GM 100 ML IV SCH ×3 (06:11→22:34)
[2019-10-22] MEDS: PANTOPRAZOLE 40 MG/10 ML VIAL INJ IV SCH (10:08)
[2019-10-22] MEDS: ENOXAPARIN SOD 60 MG/0.6 ML SYRINGE SC SCH (10:09)
[2019-10-22] MEDS: SODIUM CHLORIDE 0.9% 1,000 ML IV SCH (12:10)
[2019-10-22] MEDS ORDERED: WARF2TAB49 PO (17:03)
[2019-10-22] MEDS ORDERED: POTA-180 PO (17:03)
[2019-10-22] MEDS ORDERED: TIOT1AER2 IN (17:06)
[2019-10-22] MEDS ORDERED: FLUT50AE IN (17:06)
[2019-10-23 05:26] VITALS: BP 110/73
[2019-10-23] MEDS: SODIUM CHLORIDE 0.9% 1,000 ML IV SCH ×2 (05:39→14:50)
[2019-10-23] MEDS: METOCLOPRAMIDE HCL 5MG/ml INJ 2ml VIAL IV SCH ×2 (05:39→14:30)
[2019-10-23] MEDS: PIPERACILLIN-TAZO 4.5GM 100 ML IV SCH ×2 (05:39→14:30)
--- NOTE | 2019-10-23 07:06 | NUR ---
MD TORRES ORDERED XARELTO 20MG EVERYDAY AND D/C COUMADIN. PHARMACY NOTIFIED.
--- NOTE | 2019-10-23 07:30 | NUR ---
Opening Shift Note Assuming care of patient. Patient resting in bed. Patient shows no signs or symptoms of shortness of breath. Patient denies pain. Bed is locked and lowered with side rails up x2. Bed is locked and lowered with side rails up x2. Instructed patient on the plan of care for today and to call for assistance as needed.
[2019-10-23 09:00] VITALS: BP 103/45
[2019-10-23] MEDS ORDERED: RIVAROXABAN 15 MG TAB PO SCH (10:00)
[2019-10-23] MEDS ORDERED: RIVAROXABAN 20 MG TAB PO SCH (10:00)
--- NOTE | 2019-10-23 10:49 | NUR ---
Est energy needs [id number] kcal (25-27 kcal/kg BW 64.7kg) Est protein needs 52-65g (0.8-1g/kg BW 64.7kg) Will reassess prn. Addendum: 10/23/19 at [address] Amended: Links added.
[2019-10-23] MEDS: PANTOPRAZOLE 40 MG/10 ML VIAL INJ IV SCH (10:52)
[2019-10-23 13:00] VITALS: BP 92/46
[2019-10-23 17:00] VITALS: BP 106/48
[2019-10-23 17:40] VITALS: BP 106/48
--- NOTE | 2019-10-23 18:15 | NUR ---
Discharge Discharge instructions given as ordered. Encourage to follow up with PMD as instructed. All questions and concerns addressed. Patient verbalized understanding. Medication reconciliation form completed and copy given to patient. IV removed with catheter intact, pressure dressing applied. Patient taken to vehicle via wheelchair with all personal belongings, accompanied by staff. Patient states that son is in lobby. No distress noted at time of departure.
[2019-10-24] MEDS ORDERED: PIPERACILLIN-TAZOB 3.375GM 100 ML IV SCH
== END 2019-10-23 19:10 | disposition home or self-care (01) | DRG 389 ==
LOC: ER 21:26 → CENTRAL 21:27 → WEST WING 10-21 16:46
PROVIDERS: ADMIT Internal Medicine Cardiovascular Disease; ATTEND Internal Medicine Cardiovascular Disease
DX: K56.699 Other intestinal obstruction unspecified as to partial versus complete obstruction (principal); I50.32 Chronic diastolic (congestive) heart failure; I13.0 Hypertensive heart and chronic kidney disease with heart failure and stage 1 through stage 4 chronic kidney disease, or unspecified chronic kidney disease; D68.59 Other primary thrombophilia; I48.91 Unspecified atrial fibrillation; D64.9 Anemia, unspecified; N18.9 Chronic kidney disease, unspecified; Z20.828 Contact with and (suspected) exposure to other viral communicable diseases; E11.22 Type 2 diabetes mellitus with diabetic chronic kidney disease; I27.21 Secondary pulmonary arterial hypertension; J43.9 Emphysema, unspecified; Z82.49 Family history of ischemic heart disease and other diseases of the circulatory system; Z90.710 Acquired absence of both cervix and uterus; Z86.718 Personal history of other venous thrombosis and embolism; Z86.711 Personal history of pulmonary embolism
CPT/HCPCS: 36415; 71046; 74018; 74176; 80053; 81001; 82728; 83605; 83690; 83735; 84484; 85025; 85379; 85610; 85730; 87040; 87070; 87804; 87880; 93005; C9113; G0378; J0696; J2543

== ENCOUNTER → 2019-11-23 | Outpatient (CLI) | payer MEDICARE, MEDICAID ==
[~2019-11-23] VITALS: Ht 30.5 cm; Wt 0.5 kg
[~2019-11-23] MED LIST changes: -ALBUAER3 IN; +CALC0.25 PO; +CYANOCOBALAMIN (B-12) 1000 MCG/1 ML VIAL IM ONE; +CYANOCOBALAMIN (B-12) 1000 MCG/1 ML VIAL ONE; -DIGO0.12 PO; +FLUT50AE IN; +METO25TA93 PO; +POTA-180 PO; -POTA-220 PO; +READI-CAT 2 (BARIUM SULF)(VANILLA SMOOTHIE) 450ML ONE; +RIOC1TAB7 PO; +TIOT1AER2 IN
[2019-11-23 09:50] VITALS: BP 98/42
[2019-11-23 10:40] VITALS: BP 97/54
--- NOTE | 2019-11-23 10:40 | NUR ---
Discharge Instructions See e-MAR for any mediations given with this visit. Patient education given on disease process. Patient verbalized understanding. Previous labs reviewed. Patient discharged in stable condition with after care instructions and follow up appointment. Note B12 IM L deltoid admin by Tejal ULLOA
[2019-11-23 11:57] LABS: Basophils # (auto) 0 10 ^3/uL (0-0.2); Basophils % (auto) 0.9 % (0.0-2.0); Eosinophils # (auto) 0.3 10 ^3/uL (0-0.8); Eosinophils % (auto) 5.9 % (0.0-7.0); Hemoglobin 13.2 g/dL (12.2-16.2); Lymphocytes # (auto) 0.8 10 ^3/uL (0.4-5.4); Lymphocytes % (auto) 18.2 % (10.0-50.0); Mean Corpuscular Hemoglobin 27.4 pg (28.0-32.0); Mean Corpuscular Hgb Conc. 32.1 g/dL (32.0-36.0); Mean Corpuscular Volume 85.3 fL (80.0-100.0); Monocytes # (auto) 0.4 10 ^3/uL (0-1.3); Monocytes % (auto) 9.8 % (0.0-12.0); Neutrophils # (auto) 2.9 10 ^3/uL (1.6-8.6); Neutrophils % (auto) 65.2 % (37.0-80.0); Nucleated Red Blood Cells % 0.2 %; Platelet Count (auto) 224 10^3/uL (140-450); Red Cell Distribution Width 15.6 % (11.8-14.3); White Blood Cell 4.5 10^3/uL (4.4-10.8)
[2019-11-23 12:08] LABS: Potassium 3.7 mmol/L (3.5-5.1)
[2019-11-23 12:15] LABS: Albumin 3.5 g/dL (3.4-5.0); BUN/Creatinine Ratio 10.8; Bilirubin, Total 1.2 mg/dL (0.2-1.0); Magnesium 2.5 mg/dL (1.6-2.6); Total Protein 7.2 g/dL (6.4-8.2)
== END | disposition home or self-care (01) ==
LOC: CHF HDHVI 09:44
PROVIDERS: ATTEND Internal Medicine Cardiovascular Disease
DX: I27.21 Secondary pulmonary arterial hypertension (principal); D64.9 Anemia, unspecified; D51.9 Vitamin B12 deficiency anemia, unspecified; I13.0 Hypertensive heart and chronic kidney disease with heart failure and stage 1 through stage 4 chronic kidney disease, or unspecified chronic kidney disease; E11.22 Type 2 diabetes mellitus with diabetic chronic kidney disease; N18.9 Chronic kidney disease, unspecified; I50.32 Chronic diastolic (congestive) heart failure; R53.83 Other fatigue; I48.91 Unspecified atrial fibrillation; K56.609 Unspecified intestinal obstruction, unspecified as to partial versus complete obstruction; E83.40 Disorders of magnesium metabolism, unspecified; E03.9 Hypothyroidism, unspecified; J43.9 Emphysema, unspecified; Z79.899 Other long term (current) drug therapy; Z90.710 Acquired absence of both cervix and uterus
CPT/HCPCS: 36415; 74176; 80053; 82607; 83735; 85025; 96372; G0463; J3420

== ENCOUNTER → 2019-11-29 | Outpatient (CLI) | payer MEDICARE, MEDICAID ==
[~2019-11-29] MED LIST changes: -CYANOCOBALAMIN (B-12) 1000 MCG/1 ML VIAL IM ONE; -CYANOCOBALAMIN (B-12) 1000 MCG/1 ML VIAL ONE; -READI-CAT 2 (BARIUM SULF)(VANILLA SMOOTHIE) 450ML ONE
[2019-11-29 10:30] VITALS: BP 95/48
--- NOTE | 2019-11-29 10:30 | NUR ---
CLINIC PT ARRIVED TO THE CHF CLINIC FOR MONTHLY PAH EVAL AND TX. A/OX4, AMBULATORY, PT ON HOME O2 4L N/C. BREATHING IS EVEN AND UNLABORED
--- NOTE | 2019-11-29 10:48 | NUR ---
6MWT PT WAS UNABLE TO FINISH 6MWT DUE TO SOB. IN 3 MIN SHE WAS ABLE TO COMPLETE 90 M. PREFORMED BY GAMA ULLOA
[2019-11-29 11:17] VITALS: BP 105/44
--- NOTE | 2019-11-29 11:17 | NUR ---
Discharge Instructions See e-MAR for any mediations given with this visit. Patient education given on disease process. Patient verbalized understanding. Previous labs reviewed. Patient discharged in stable condition with after care instructions and follow up appointment IN 1 MONTH. NOTE 6MWT DONE BY GAMA ULLOA
[2019-11-29 12:22] LABS: Urine Blood Negative /uL (Negative); Urine Specific Gravity 1.021 (1.001-1.035)
[2019-11-29 12:30] LABS: Cholesterol 123 mg/dL (< 200); HDL Cholesterol 63 mg/dL (40-59); LDL Cholesterol 53 mg/dL (< 100); Triglycerides 96 mg/dL (< 150)
== END | disposition home or self-care (01) ==
LOC: CHF HDHVI 10:28
PROVIDERS: ATTEND Internal Medicine Cardiovascular Disease
DX: E03.9 Hypothyroidism, unspecified (principal); N39.0 Urinary tract infection, site not specified; D51.9 Vitamin B12 deficiency anemia, unspecified; R53.83 Other fatigue; R07.89 Other chest pain; I27.21 Secondary pulmonary arterial hypertension; Z00.00 Encounter for general adult medical examination without abnormal findings; Z79.899 Other long term (current) drug therapy
CPT/HCPCS: 36415; 80061; 81003; 83036; 84443; 85652; 94618; G0463

== ENCOUNTER → 2019-12-24 | Outpatient (CLI) | payer MEDICARE, MEDICAID ==
[~2019-12-24] VITALS: Ht 165.1 cm; Wt 62.6 kg
[~2019-12-24] MED LIST changes: +CYANOCOBALAMIN (B-12) 1000 MCG/1 ML VIAL IM ONE; +CYANOCOBALAMIN (B-12) 1000 MCG/1 ML VIAL ONE
[2019-12-24 09:31] VITALS: BP 145/49
--- NOTE | 2019-12-24 09:31 | NUR ---
CLINIC PT ARRIVED TO THE CHF CLINIC FOR MONTHLY PAH EVAL AND TX, A/OX4, AMBULATORY. PT ON HOME 02 6L N/C. BREATHING IS EVEN AND UNLABORED.
--- NOTE | 2019-12-24 10:00 | NUR ---
LABS DRAWN AND SENT
[2019-12-24 10:15] VITALS: BP 124/52
--- NOTE | 2019-12-24 10:15 | NUR ---
Discharge Instructions See e-MAR for any mediations given with this visit. Patient education given on disease process. Patient verbalized understanding. Previous labs reviewed. Patient discharged in stable condition with after care instructions and follow up appointment IN 1 MONTH. NOTE VIT B12 IM ADMIN BY GAMA GUTIERREZ LOT# [id number] EXP 08/14
[2019-12-24 12:08] LABS: Basophils # (auto) 0 10 ^3/uL (0-0.2); Basophils % (auto) 0.6 % (0.0-2.0); Eosinophils # (auto) 0.1 10 ^3/uL (0-0.8); Eosinophils % (auto) 2.2 % (0.0-7.0); Hemoglobin 12.9 g/dL (12.2-16.2); Lymphocytes # (auto) 0.7 10 ^3/uL (0.4-5.4); Lymphocytes % (auto) 14.7 % (10.0-50.0); Mean Corpuscular Hgb Conc. 33.1 g/dL (32.0-36.0); Mean Corpuscular Volume 84.7 fL (80.0-100.0); Monocytes # (auto) 0.4 10 ^3/uL (0-1.3); Monocytes % (auto) 8.8 % (0.0-12.0); Neutrophils # (auto) 3.5 10 ^3/uL (1.6-8.6); Neutrophils % (auto) 73.7 % (37.0-80.0); Nucleated Red Blood Cells % 0.1 %; Platelet Count (auto) 230 10^3/uL (140-450); Red Cell Distribution Width 15.1 % (11.8-14.3); White Blood Cell 4.7 10^3/uL (4.4-10.8)
[2019-12-24 12:24] LABS: Potassium 3.6 mmol/L (3.5-5.1)
[2019-12-24 12:30] LABS: Albumin 3.5 g/dL (3.4-5.0); BUN/Creatinine Ratio 9.3; Bilirubin, Total 1.5 mg/dL (0.2-1.0); Calcium 8.9 mg/dL (8.5-10.1); Magnesium 2.4 mg/dL (1.6-2.6); Total Protein 7.1 g/dL (6.4-8.2)
== END | disposition home or self-care (01) ==
LOC: CHF HDHVI 08:41
PROVIDERS: ATTEND Internal Medicine Cardiovascular Disease
DX: I27.21 Secondary pulmonary arterial hypertension (principal); I13.0 Hypertensive heart and chronic kidney disease with heart failure and stage 1 through stage 4 chronic kidney disease, or unspecified chronic kidney disease; E11.22 Type 2 diabetes mellitus with diabetic chronic kidney disease; N18.9 Chronic kidney disease, unspecified; I50.32 Chronic diastolic (congestive) heart failure; R53.83 Other fatigue; I48.91 Unspecified atrial fibrillation; D64.9 Anemia, unspecified; E83.40 Disorders of magnesium metabolism, unspecified; E03.9 Hypothyroidism, unspecified; J43.9 Emphysema, unspecified; Z90.710 Acquired absence of both cervix and uterus; Z79.899 Other long term (current) drug therapy
CPT/HCPCS: 36415; 80053; 83735; 85025; 96372; G0463; J3420

== ENCOUNTER → 2020-01-23 | Outpatient (CLI) | payer MEDICARE, MEDICAID ==
[2020-01-23 10:10] VITALS: BP 125/50
--- NOTE | 2020-01-23 10:10 | NUR ---
CLINIC PT ARRIVED TO THE CHF CLINIC FOR MONTHLY PAH EVAL AND TX. A/OX4, AMBULATORY. PT IS ON HOME 02 5L N/C. BREATHING IS EVEN AND UNLABORED.
--- NOTE | 2020-01-23 10:21 | NUR ---
LABS DRAWN AND SENT
[2020-01-23 10:46] VITALS: BP 101/51
--- NOTE | 2020-01-23 10:46 | NUR ---
Discharge Instructions See e-MAR for any mediations given with this visit. Patient education given on disease process. Patient verbalized understanding. Previous labs reviewed. Patient discharged in stable condition with after care instructions and follow up appointment IN 1 MONTH. PT HAS ECHO SCHEDULED AT [facility] NEXT MONTH AND WILL BRING IN A COPY OF THE REPORT. PT GIVEN A VIT D SPRAY TO USE AT HOME. NOTE VIT B12 IM ADMIN BY FELI Martinez DELTOID LOT#[id number] EXP 08/14
[2020-01-23 12:09] LABS: Basophils # (auto) 0 10 ^3/uL (0-0.2); Basophils % (auto) 0.8 % (0.0-2.0); Eosinophils # (auto) 0.1 10 ^3/uL (0-0.8); Eosinophils % (auto) 2.4 % (0.0-7.0); Hematocrit 40.4 % (36.0-46.0); Hemoglobin 13.5 g/dL (12.2-16.2); Lymphocytes % (auto) 18.8 % (10.0-50.0); Mean Corpuscular Hemoglobin 28.5 pg (28.0-32.0); Mean Corpuscular Hgb Conc. 33.4 g/dL (32.0-36.0); Mean Corpuscular Volume 85.2 fL (80.0-100.0); Monocytes # (auto) 0.5 10 ^3/uL (0-1.3); Monocytes % (auto) 9.3 % (0.0-12.0); Neutrophils # (auto) 3.7 10 ^3/uL (1.6-8.6); Neutrophils % (auto) 68.7 % (37.0-80.0); Nucleated Red Blood Cells % 0.1 %; Platelet Count (auto) 266 10^3/uL (140-450); Red Blood Cells 4.74 10^6/uL (4.0-5.20); Red Cell Distribution Width 14.9 % (11.8-14.3); White Blood Cell 5.4 10^3/uL (4.4-10.8)
[2020-01-23 12:21] LABS: Potassium 3.2 mmol/L (3.5-5.1)
[2020-01-23 12:29] LABS: Albumin 3.7 g/dL (3.4-5.0); BUN/Creatinine Ratio 12.2; Bilirubin, Total 1.2 mg/dL (0.2-1.0); Calcium 9.4 mg/dL (8.5-10.1); Magnesium 2.4 mg/dL (1.6-2.6); Total Protein 7.5 g/dL (6.4-8.2)
== END | disposition home or self-care (01) ==
LOC: CHF HDHVI 10:12
PROVIDERS: ATTEND Internal Medicine Cardiovascular Disease
DX: I27.21 Secondary pulmonary arterial hypertension (principal); I13.0 Hypertensive heart and chronic kidney disease with heart failure and stage 1 through stage 4 chronic kidney disease, or unspecified chronic kidney disease; E11.22 Type 2 diabetes mellitus with diabetic chronic kidney disease; N18.9 Chronic kidney disease, unspecified; I50.32 Chronic diastolic (congestive) heart failure; I48.91 Unspecified atrial fibrillation; J43.9 Emphysema, unspecified; E03.9 Hypothyroidism, unspecified; Z90.710 Acquired absence of both cervix and uterus; Z79.899 Other long term (current) drug therapy
CPT/HCPCS: 36415; 80053; 83735; 85025; 96372; G0463; J3420

== ENCOUNTER → 2020-02-13 | Outpatient (CLI) | payer MEDICARE, MEDICAID ==
[~2020-02-13] MED LIST changes: -CYANOCOBALAMIN (B-12) 1000 MCG/1 ML VIAL IM ONE; -CYANOCOBALAMIN (B-12) 1000 MCG/1 ML VIAL ONE
== END | disposition home or self-care (01) ==
LOC: LAB 10:27
PROVIDERS: ATTEND Internal Medicine Cardiovascular Disease
DX: R94.4 Abnormal results of kidney function studies (principal)
CPT/HCPCS: 36415; 82565

== ENCOUNTER → 2020-02-15 | Outpatient (CLI) | payer MEDICARE, MEDICAID ==
[~2020-02-15] MED LIST changes: +IOHEXOL 350 MG/ML 100ML IJ ONE
[2020-02-15 09:00] VITALS: BP 117/53
--- NOTE | 2020-02-15 09:00 | NUR ---
Patient in for schedule CT appointment, AAOx4, ambulatory, on 4LPM n/c.
--- NOTE | 2020-02-15 09:17 | NUR ---
IV insertion IV access obtained, via clean sterile technique by inserting 22 gauge catheter at RAC after 1 attempt(s). IV secured properly. No trauma to site. Patient tolerated procedure well.
[2020-02-15 09:30] VITALS: BP 106/45
--- NOTE | 2020-02-15 09:30 | NUR ---
Discharge Instructions See e-MAR for any mediations given with this visit. Patient education given on disease process. Patient verbalized understanding. Previous labs reviewed. Patient discharged in stable condition with after care instructions and follow up appointment. Note Patient educated to increase fluid intake over the next 24hrs after IV contrast, pt verbalized understanding.
== END | disposition home or self-care (01) ==
LOC: Rad HDHVI 09:01
PROVIDERS: ATTEND Internal Medicine Cardiovascular Disease
DX: J43.9 Emphysema, unspecified (principal); R91.1 Solitary pulmonary nodule; J98.4 Other disorders of lung; J98.11 Atelectasis; I70.0 Atherosclerosis of aorta; I25.10 Atherosclerotic heart disease of native coronary artery without angina pectoris; M79.9 Soft tissue disorder, unspecified; R06.02 Shortness of breath; R59.0 Localized enlarged lymph nodes
CPT/HCPCS: 71260; G0463; Q9967

== ENCOUNTER → 2020-02-20 | Outpatient (CLI) | payer MEDICARE, MEDICAID ==
[~2020-02-20] MED LIST changes: +CYANOCOBALAMIN (B-12) 1000 MCG/1 ML VIAL IM ONE; +CYANOCOBALAMIN (B-12) 1000 MCG/1 ML VIAL ONE; -IOHEXOL 350 MG/ML 100ML IJ ONE
[2020-02-20 10:36] VITALS: BP 104/56
[2020-02-20 12:00] VITALS: BP 112/51
[2020-02-20 12:22] LABS: Basophils # (auto) 0 10 ^3/uL (0-0.2); Eosinophils # (auto) 0.1 10 ^3/uL (0-0.8); Eosinophils % (auto) 3.2 % (0.0-7.0); Hematocrit 38.5 % (36.0-46.0); Hemoglobin 12.9 g/dL (12.2-16.2); Lymphocytes # (auto) 0.7 10 ^3/uL (0.4-5.4); Lymphocytes % (auto) 16.4 % (10.0-50.0); Mean Corpuscular Hgb Conc. 33.6 g/dL (32.0-36.0); Mean Corpuscular Volume 86.5 fL (80.0-100.0); Monocytes # (auto) 0.4 10 ^3/uL (0-1.3); Neutrophils # (auto) 3.1 10 ^3/uL (1.6-8.6); Neutrophils % (auto) 70.4 % (37.0-80.0); Nucleated Red Blood Cells % 0.1 %; Platelet Count (auto) 244 10^3/uL (140-450); Red Blood Cells 4.45 10^6/uL (4.0-5.20); Red Cell Distribution Width 14.2 % (11.8-14.3); White Blood Cell 4.4 10^3/uL (4.4-10.8)
[2020-02-20 12:38] LABS: Anion Gap 6 (5-15); Carbon Dioxide 27 mmol/L (21-32); Chloride 107 mmol/L (98-107); Sodium 140 mmol/L (136-145)
[2020-02-20 12:39] LABS: Alanine Aminotransferase 10 U/L (13-56); Albumin 3.4 g/dL (3.4-5.0); Alkaline Phosphatase 86 U/L (45-117); Aspartate Aminotransferase 10 U/L (15-37); BUN/Creatinine Ratio 10.9; Bilirubin, Total 0.9 mg/dL (0.2-1.0); Blood Urea Nitrogen 15 mg/dL (7-18); Calcium 8.8 mg/dL (8.5-10.1); GFR African American 48 mL/min; GFR Non-African American 39 mL/min; Glucose 88 mg/dL (74-106); Magnesium 2.5 mg/dL (1.6-2.6); Total Protein 6.8 g/dL (6.4-8.2)
--- NOTE | 2020-02-21 10:36 | NUR ---
Patient into clinic for scheduled monthly PAH appointment, [facility], ambulatory, on 5 lpm home O2. Patient states she feels less energy than on last visit. Patient switched from home O2 tank to clinic oxygen tank at 6LPM.
--- NOTE | 2020-02-21 10:55 | NUR ---
Patient states she was given a new prescription for dexilant for an increase in her acid reflux while taking protonix, patient was not sure if she was suppose to take them together or stop the protonix and take the dexilant. Spoke with Dr Woo for clarification and patient educated to take one medication in the AM and if she still had reflux in the afternoon/evening then she could take the other one, she was informed to not take both medications at the same time. Patient verbalized understanding.
--- NOTE | 2020-02-21 11:25 | NUR ---
Patient stated she had been having moments of incontinence that started recently. She said she could not tell she was urinating until she felt the warmth. Dr Woo updated on patient incontinence and verbal order for bladder scan and prescription for DetrolLA 4mg daily to start after bladder scan completed. Prescription sent to [facility] and patient verbalized understanding she does not start the medication until after the bladder scan.
--- NOTE | 2020-02-21 12:00 | NUR ---
Discharge Instructions See e-MAR for any mediations given with this visit. Patient education given on disease process. Patient verbalized understanding. Previous labs reviewed. Patient discharged in stable condition with after care instructions and follow up appointment. Note B12 IM L DELTOID ADMIN BY JONELLE ULLOA. BLOOD DRAWN BY CANDACE CHRISTIANSON. GAMA ULLOA SET APPOINTMENT FOR BLADDER SCAN FOR 02/29/20.
== END | disposition home or self-care (01) ==
LOC: CHF HDHVI 10:45
PROVIDERS: ATTEND Internal Medicine Cardiovascular Disease
DX: I27.21 Secondary pulmonary arterial hypertension (principal); I13.0 Hypertensive heart and chronic kidney disease with heart failure and stage 1 through stage 4 chronic kidney disease, or unspecified chronic kidney disease; E11.22 Type 2 diabetes mellitus with diabetic chronic kidney disease; N18.9 Chronic kidney disease, unspecified; I50.32 Chronic diastolic (congestive) heart failure; I25.10 Atherosclerotic heart disease of native coronary artery without angina pectoris; I48.91 Unspecified atrial fibrillation; R53.83 Other fatigue; R06.02 Shortness of breath; R32 Unspecified urinary incontinence; J43.9 Emphysema, unspecified; E03.9 Hypothyroidism, unspecified; K21.9 Gastro-esophageal reflux disease without esophagitis; Z79.899 Other long term (current) drug therapy; Z90.710 Acquired absence of both cervix and uterus; Z99.81 Dependence on supplemental oxygen
CPT/HCPCS: 36415; 80053; 83735; 85025; 96372; G0463; J3420

== ENCOUNTER → 2020-03-18 | Outpatient (CLI) | payer MEDICARE, MEDICAID ==
[~2020-03-18] MED LIST changes: -CYANOCOBALAMIN (B-12) 1000 MCG/1 ML VIAL IM ONE; -CYANOCOBALAMIN (B-12) 1000 MCG/1 ML VIAL ONE
== END | disposition home or self-care (01) ==
LOC: Rad HDHVI 10:40
PROVIDERS: ATTEND Internal Medicine Cardiovascular Disease
DX: I07.1 Rheumatic tricuspid insufficiency (principal); I50.33 Acute on chronic diastolic (congestive) heart failure; R06.02 Shortness of breath
CPT/HCPCS: 93306

== ENCOUNTER → 2020-04-04 | Outpatient (CLI) | payer MEDICARE, MEDICAID ==
[~2020-04-04] MED LIST changes: +CYANOCOBALAMIN (B-12) 1000 MCG/1 ML VIAL IM ONE; +CYANOCOBALAMIN (B-12) 1000 MCG/1 ML VIAL ONE
[2020-04-04 13:04] VITALS: BP 116/44
--- NOTE | 2020-04-04 13:04 | NUR ---
CLINIC PT ARRIVED TO CHF CLINIC FOR SCHEDULED PAH EVAL AND TX. PT AMBULATORY WITH WALKER, A/OX4 WITH HOME O2 ON 5 L VIA N/C, VSS AND BREATHING EVEN AN UNLABORED. LABS DRAWN AND SENT.
[2020-04-04 13:23] VITALS: BP 130/52
--- NOTE | 2020-04-04 13:23 | NUR ---
Discharge Instructions See e-MAR for any mediations given with this visit. Patient education given on disease process. Patient verbalized understanding. Patient discharged in stable condition with after care instructions and follow up appointment. NOTE VIT B 12 IM R DELTOID LOT# [id number] EXP 08/14
[2020-04-04 16:15] LABS: Albumin 3.5 g/dL (3.4-5.0); Calcium 8.8 mg/dL (8.5-10.1); Magnesium 2.4 mg/dL (1.6-2.6)
[2020-04-04 16:20] LABS: BUN/Creatinine Ratio 8.2; Total Protein 7.2 g/dL (6.4-8.2)
[2020-04-04 16:22] LABS: Hematocrit 40.9 % (36.0-46.0); Hemoglobin 13.5 g/dL (12.2-16.2); Mean Corpuscular Hemoglobin 28.6 pg (28.0-32.0); Mean Corpuscular Hgb Conc. 33.1 g/dL (32.0-36.0); Mean Corpuscular Volume 86.5 fL (80.0-100.0); Platelet Count (auto) 282 10^3/uL (140-450); Red Blood Cells 4.73 10^6/uL (4.0-5.20); Red Cell Distribution Width 14.5 % (11.8-14.3); White Blood Cell 3.3 10^3/uL (4.4-10.8)
[2020-04-04 16:29] LABS: Band Neutrophils % (manual) 0; Basophils % (manual) 0 (0.0-2.0); Blast Cells 0; Metamyelocytes % 0; Myelocytes % 0; Promyelocytes % 0; Reactive Lymphocytes 0
[2020-04-04 20:13] LABS: Eosinophils % (manual) 2 (0-7); Lymphocytes % (manual) 17 (10.0-50.0); Monocytes % (manual) 20 (0-12)
== END | disposition home or self-care (01) ==
LOC: CHF HDHVI 12:06
PROVIDERS: ATTEND Internal Medicine Cardiovascular Disease
DX: I27.21 Secondary pulmonary arterial hypertension (principal); I13.0 Hypertensive heart and chronic kidney disease with heart failure and stage 1 through stage 4 chronic kidney disease, or unspecified chronic kidney disease; E11.22 Type 2 diabetes mellitus with diabetic chronic kidney disease; N18.9 Chronic kidney disease, unspecified; I50.23 Acute on chronic systolic (congestive) heart failure; R53.83 Other fatigue; I25.10 Atherosclerotic heart disease of native coronary artery without angina pectoris; I48.91 Unspecified atrial fibrillation; J43.9 Emphysema, unspecified; K21.9 Gastro-esophageal reflux disease without esophagitis; E03.9 Hypothyroidism, unspecified; Z99.81 Dependence on supplemental oxygen; Z79.899 Other long term (current) drug therapy; Z90.710 Acquired absence of both cervix and uterus
CPT/HCPCS: 36415; 80053; 83735; 85007; 85027; 96372; G0463; J3420

== ENCOUNTER → 2020-05-06 | Outpatient (CLI) | payer MEDICARE, MEDICAID ==
[2020-05-06 10:06] VITALS: BP 98/45
[2020-05-06 10:35] VITALS: BP 93/47
[2020-05-06 11:41] LABS: Basophils # (auto) 0 10 ^3/uL (0-0.2); Basophils % (auto) 0.4 % (0.0-2.0); Eosinophils # (auto) 0 10 ^3/uL (0-0.8); Eosinophils % (auto) 1.1 % (0.0-7.0); Hematocrit 36.4 % (36.0-46.0); Hemoglobin 12.2 g/dL (12.2-16.2); Lymphocytes # (auto) 0.7 10 ^3/uL (0.4-5.4); Lymphocytes % (auto) 18.9 % (10.0-50.0); Mean Corpuscular Hemoglobin 28.2 pg (28.0-32.0); Mean Corpuscular Hgb Conc. 33.4 g/dL (32.0-36.0); Mean Corpuscular Volume 84.4 fL (80.0-100.0); Monocytes # (auto) 0.6 10 ^3/uL (0-1.3); Monocytes % (auto) 17.3 % (0.0-12.0); Neutrophils # (auto) 2.3 10 ^3/uL (1.6-8.6); Neutrophils % (auto) 62.3 % (37.0-80.0); Nucleated Red Blood Cells % 0.5 %; Platelet Count (auto) 259 10^3/uL (140-450); Red Blood Cells 4.32 10^6/uL (4.0-5.20); Red Cell Distribution Width 14.2 % (11.8-14.3); White Blood Cell 3.7 10^3/uL (4.4-10.8)
[2020-05-06 12:10] LABS: Albumin 2.6 g/dL (3.4-5.0); BUN/Creatinine Ratio 13.8; Bilirubin, Total 0.9 mg/dL (0.2-1.0); Calcium 8.4 mg/dL (8.5-10.1); Magnesium 1.9 mg/dL (1.6-2.6); Total Protein 5.8 g/dL (6.4-8.2)
[2020-05-06 14:31] LABS: Potassium 2.8 mmol/L (3.5-5.1)
== END | disposition home or self-care (01) ==
LOC: CHF HDHVI 10:18
PROVIDERS: ATTEND Internal Medicine Cardiovascular Disease
DX: I27.21 Secondary pulmonary arterial hypertension (principal); R53.83 Other fatigue; D64.9 Anemia, unspecified; I13.0 Hypertensive heart and chronic kidney disease with heart failure and stage 1 through stage 4 chronic kidney disease, or unspecified chronic kidney disease; E11.22 Type 2 diabetes mellitus with diabetic chronic kidney disease; N18.9 Chronic kidney disease, unspecified; I50.22 Chronic systolic (congestive) heart failure; I25.10 Atherosclerotic heart disease of native coronary artery without angina pectoris; I48.91 Unspecified atrial fibrillation; J43.9 Emphysema, unspecified; K21.9 Gastro-esophageal reflux disease without esophagitis; E03.9 Hypothyroidism, unspecified; Z99.81 Dependence on supplemental oxygen; Z79.899 Other long term (current) drug therapy; Z90.710 Acquired absence of both cervix and uterus
CPT/HCPCS: 36415; 80053; 82607; 83735; 85025; 96372; G0463; J3420

== ENCOUNTER → 2020-05-09 | Outpatient (CLI) | payer MEDICARE, MEDICAID ==
[~2020-05-09] MED LIST changes: -CYANOCOBALAMIN (B-12) 1000 MCG/1 ML VIAL IM ONE; -CYANOCOBALAMIN (B-12) 1000 MCG/1 ML VIAL ONE
== END | disposition home or self-care (01) ==
LOC: CHF HDHVI 10:06
PROVIDERS: ATTEND Internal Medicine Cardiovascular Disease
DX: E87.6 Hypokalemia (principal)
CPT/HCPCS: 36415; 84132

== ENCOUNTER → 2020-06-10 | Outpatient (CLI) | payer MEDICARE, MEDICAID ==
[~2020-06-10] MED LIST changes: +CYANOCOBALAMIN (B-12) 1000 MCG/1 ML VIAL IM ONE; +CYANOCOBALAMIN (B-12) 1000 MCG/1 ML VIAL ONE; +RIOC1TAB14 PO; -RIOC1TAB7 PO
[2020-06-10 09:59] VITALS: BP 101/62
[2020-06-10 10:39] VITALS: BP 112/49
[2020-06-10 15:21] LABS: Basophils # (auto) 0 10 ^3/uL (0-0.2); Basophils % (auto) 0.9 % (0.0-2.0); Eosinophils # (auto) 0.1 10 ^3/uL (0-0.8); Eosinophils % (auto) 2.9 % (0.0-7.0); Hematocrit 37.8 % (36.0-46.0); Hemoglobin 12.3 g/dL (12.2-16.2); Lymphocytes % (auto) 30.7 % (10.0-50.0); Mean Corpuscular Hemoglobin 28.4 pg (28.0-32.0); Mean Corpuscular Hgb Conc. 32.5 g/dL (32.0-36.0); Mean Corpuscular Volume 87.4 fL (80.0-100.0); Monocytes # (auto) 0.3 10 ^3/uL (0-1.3); Monocytes % (auto) 10.4 % (0.0-12.0); Neutrophils # (auto) 1.8 10 ^3/uL (1.6-8.6); Neutrophils % (auto) 55.1 % (37.0-80.0); Nucleated Red Blood Cells % 0.3 %; Platelet Count (auto) 284 10^3/uL (140-450); Red Blood Cells 4.33 10^6/uL (4.0-5.20); Red Cell Distribution Width 15.5 % (11.8-14.3); White Blood Cell 3.3 10^3/uL (4.4-10.8)
[2020-06-10 15:36] LABS: Potassium 3.4 mmol/L (3.5-5.1)
[2020-06-10 15:42] LABS: Albumin 3.3 g/dL (3.4-5.0); BUN/Creatinine Ratio 6.3; Bilirubin, Total 1.6 mg/dL (0.2-1.0); Calcium 8.4 mg/dL (8.5-10.1); Magnesium 2.4 mg/dL (1.6-2.6); Total Protein 6.9 g/dL (6.4-8.2)
== END | disposition home or self-care (01) ==
LOC: CHF HDHVI 10:08
PROVIDERS: ATTEND Internal Medicine Cardiovascular Disease
DX: I27.21 Secondary pulmonary arterial hypertension (principal); R53.83 Other fatigue; I25.10 Atherosclerotic heart disease of native coronary artery without angina pectoris; I13.0 Hypertensive heart and chronic kidney disease with heart failure and stage 1 through stage 4 chronic kidney disease, or unspecified chronic kidney disease; E11.22 Type 2 diabetes mellitus with diabetic chronic kidney disease; I50.22 Chronic systolic (congestive) heart failure; N18.9 Chronic kidney disease, unspecified; K21.9 Gastro-esophageal reflux disease without esophagitis; J43.9 Emphysema, unspecified; E03.9 Hypothyroidism, unspecified; I48.91 Unspecified atrial fibrillation; Z90.710 Acquired absence of both cervix and uterus; Z79.899 Other long term (current) drug therapy
CPT/HCPCS: 36415; 80053; 83735; 85025; 96372; G0463; J3420

== ENCOUNTER → 2020-07-01 | Outpatient (CLI) | payer MEDICARE, MEDICAID ==
[~2020-07-01] VITALS: Ht 30.5 cm; Wt 0.5 kg
[~2020-07-01] MED LIST changes: +ALBUAER3 IN; -FLUT50AE IN; +LIDOCAINE VISCOUS 2% 15ML UD ONE; +MIDAZOLAM HCL 5 MG/ML-1ML VIAL ONE; +RIVA10TA PO; +SERDISK IN; -WARF2TAB49 PO; -WARF3TAB22 PO; +diphenhdrAMINE HCL 50 MG/1 ML VL ONE; +fentaNYL CITRATE 100 MCG/2 ML VL ONE
[2020-07-01 08:53] VITALS: BP 106/49
[2020-07-01 10:22] VITALS: BP 98/44
[2020-07-01 11:57] LABS: Basophils # (auto) 0 10 ^3/uL (0-0.2); Basophils % (auto) 0.6 % (0.0-2.0); Eosinophils # (auto) 0.1 10 ^3/uL (0-0.8); Eosinophils % (auto) 2.1 % (0.0-7.0); Hematocrit 37.5 % (36.0-46.0); Hemoglobin 12.4 g/dL (12.2-16.2); Lymphocytes # (auto) 1.3 10 ^3/uL (0.4-5.4); Lymphocytes % (auto) 23.6 % (10.0-50.0); Mean Corpuscular Hemoglobin 28.1 pg (28.0-32.0); Mean Corpuscular Hgb Conc. 33.1 g/dL (32.0-36.0); Monocytes # (auto) 0.5 10 ^3/uL (0-1.3); Monocytes % (auto) 9.4 % (0.0-12.0); Neutrophils # (auto) 3.5 10 ^3/uL (1.6-8.6); Neutrophils % (auto) 64.3 % (37.0-80.0); Nucleated Red Blood Cells % 0.1 %; Platelet Count (auto) 287 10^3/uL (140-450); Red Blood Cells 4.41 10^6/uL (4.0-5.20); Red Cell Distribution Width 14.7 % (11.8-14.3); White Blood Cell 5.5 10^3/uL (4.4-10.8)
[2020-07-01 12:18] LABS: Potassium 3.4 mmol/L (3.5-5.1)
[2020-07-01 12:33] LABS: Albumin 3.3 g/dL (3.4-5.0); BUN/Creatinine Ratio 9.5; Bilirubin, Total 0.8 mg/dL (0.2-1.0); Calcium 8.8 mg/dL (8.5-10.1); Magnesium 1.6 mg/dL (1.6-2.6)
== END | disposition home or self-care (01) ==
LOC: CHF HDHVI 09:09
PROVIDERS: ATTEND Internal Medicine Cardiovascular Disease
DX: I27.21 Secondary pulmonary arterial hypertension (principal); I13.0 Hypertensive heart and chronic kidney disease with heart failure and stage 1 through stage 4 chronic kidney disease, or unspecified chronic kidney disease; E11.22 Type 2 diabetes mellitus with diabetic chronic kidney disease; I50.22 Chronic systolic (congestive) heart failure; N18.9 Chronic kidney disease, unspecified; I25.10 Atherosclerotic heart disease of native coronary artery without angina pectoris; I48.91 Unspecified atrial fibrillation; J43.9 Emphysema, unspecified; K21.9 Gastro-esophageal reflux disease without esophagitis; E03.9 Hypothyroidism, unspecified; Z99.81 Dependence on supplemental oxygen; Z90.710 Acquired absence of both cervix and uterus; Z79.899 Other long term (current) drug therapy
CPT/HCPCS: 36415; 71046; 80053; 80061; 83735; 85025; 94618; 96372; G0463; J3420

== ENCOUNTER → 2020-07-02 | Day surgery (SDC) | payer MEDICARE, MEDICAID ==
[2020-06-27 12:23] LABS: Basophils # (auto) 0.1 10 ^3/uL (0-0.2); Basophils % (auto) 1.5 % (0.0-2.0); Eosinophils # (auto) 0.2 10 ^3/uL (0-0.8); Eosinophils % (auto) 3.4 % (0.0-7.0); Hematocrit 38.1 % (36.0-46.0); Hemoglobin 12.6 g/dL (12.2-16.2); Lymphocytes # (auto) 1.5 10 ^3/uL (0.4-5.4); Lymphocytes % (auto) 28.7 % (10.0-50.0); Mean Corpuscular Hemoglobin 27.9 pg (28.0-32.0); Mean Corpuscular Volume 84.7 fL (80.0-100.0); Monocytes # (auto) 0.5 10 ^3/uL (0-1.3); Monocytes % (auto) 9.2 % (0.0-12.0); Neutrophils # (auto) 2.9 10 ^3/uL (1.6-8.6); Neutrophils % (auto) 57.2 % (37.0-80.0); Platelet Count (auto) 276 10^3/uL (140-450); Red Cell Distribution Width 14.3 % (11.8-14.3); White Blood Cell 5.1 10^3/uL (4.4-10.8)
[2020-06-27 12:40] LABS: INR 1.02 (0.9-1.15); Partial Thromboplastin Time 28.5 sec (23.0-31.2)
[~2020-07-02] VITALS: Ht 157.5 cm; Wt 61.2 kg
[~2020-07-02] MED LIST changes: -CYANOCOBALAMIN (B-12) 1000 MCG/1 ML VIAL IM ONE; -CYANOCOBALAMIN (B-12) 1000 MCG/1 ML VIAL ONE; +LIDOCAINE VISCOUS 2% 15ML UD MT ONE; -LIDOCAINE VISCOUS 2% 15ML UD ONE; +MIDAZOLAM HCL 1MG/1ML-2 ML VIAL ONE; +MIDAZOLAM HCL 5 MG/ML-1ML VIAL IV ONE; -MIDAZOLAM HCL 5 MG/ML-1ML VIAL ONE; +fentaNYL CITRATE 100 MCG/2 ML VL IV ONE
[2020-07-02 14:30] VITALS: BP 102/50
== END | disposition home or self-care (01) ==
LOC: GI 12:40
PROVIDERS: ATTEND Internal Medicine Gastroenterology
DX: R13.10 Dysphagia, unspecified (principal); K44.9 Diaphragmatic hernia without obstruction or gangrene; K29.70 Gastritis, unspecified, without bleeding; K21.00 Gastro-esophageal reflux disease with esophagitis, without bleeding; K22.2 Esophageal obstruction; J43.9 Emphysema, unspecified; K21.9 Gastro-esophageal reflux disease without esophagitis; M51.36 Other intervertebral disc degeneration, lumbar region; H26.9 Unspecified cataract; J84.10 Pulmonary fibrosis, unspecified; Z79.899 Other long term (current) drug therapy; Z20.822 Contact with and (suspected) exposure to COVID-19; Z98.890 Other specified postprocedural states; Z90.710 Acquired absence of both cervix and uterus; Z87.891 Personal history of nicotine dependence
CPT/HCPCS: 36415; 43239; 43450; 85025; 85610; 85730; J1200; J2250; J3010; J7030; U0003; G0500

== ENCOUNTER → 2020-08-14 | Outpatient (CLI) | payer MEDICARE, MEDICAID ==
[~2020-08-14] MED LIST changes: +CYANOCOBALAMIN (B-12) 1000 MCG/1 ML VIAL IM ONE; +CYANOCOBALAMIN (B-12) 1000 MCG/1 ML VIAL ONE; -LIDOCAINE VISCOUS 2% 15ML UD MT ONE; -MIDAZOLAM HCL 1MG/1ML-2 ML VIAL ONE; -MIDAZOLAM HCL 5 MG/ML-1ML VIAL IV ONE; -diphenhdrAMINE HCL 50 MG/1 ML VL ONE; -fentaNYL CITRATE 100 MCG/2 ML VL IV ONE; -fentaNYL CITRATE 100 MCG/2 ML VL ONE
[2020-08-14 10:32] VITALS: BP 110/48
[2020-08-14 10:52] VITALS: BP 117/51
[2020-08-14 11:40] LABS: Basophils # (auto) 0.1 10 ^3/uL (0-0.2); Eosinophils # (auto) 0.1 10 ^3/uL (0-0.8); Eosinophils % (auto) 2.5 % (0.0-7.0); Hematocrit 39.5 % (36.0-46.0); Lymphocytes # (auto) 1.3 10 ^3/uL (0.4-5.4); Mean Corpuscular Hemoglobin 27.5 pg (28.0-32.0); Mean Corpuscular Hgb Conc. 32.9 g/dL (32.0-36.0); Mean Corpuscular Volume 83.5 fL (80.0-100.0); Monocytes # (auto) 0.5 10 ^3/uL (0-1.3); Neutrophils # (auto) 3.8 10 ^3/uL (1.6-8.6); Neutrophils % (auto) 65.5 % (37.0-80.0); Nucleated Red Blood Cells % 0.3 %; Platelet Count (auto) 263 10^3/uL (140-450); Red Blood Cells 4.73 10^6/uL (4.0-5.20); Red Cell Distribution Width 14.8 % (11.8-14.3); White Blood Cell 5.8 10^3/uL (4.4-10.8)
[2020-08-14 12:08] LABS: Albumin 3.4 g/dL (3.4-5.0); BUN/Creatinine Ratio 12.7; Calcium 8.8 mg/dL (8.5-10.1); Magnesium 2.7 mg/dL (1.6-2.6); Potassium 3.5 mmol/L (3.5-5.1)
[2020-08-14 12:09] LABS: Bilirubin, Total 0.8 mg/dL (0.2-1.0)
== END | disposition home or self-care (01) ==
LOC: CHF HDHVI 10:31
PROVIDERS: ATTEND Internal Medicine Cardiovascular Disease
DX: I27.21 Secondary pulmonary arterial hypertension (principal); I13.0 Hypertensive heart and chronic kidney disease with heart failure and stage 1 through stage 4 chronic kidney disease, or unspecified chronic kidney disease; E11.22 Type 2 diabetes mellitus with diabetic chronic kidney disease; I50.22 Chronic systolic (congestive) heart failure; N18.9 Chronic kidney disease, unspecified; J43.9 Emphysema, unspecified; K21.9 Gastro-esophageal reflux disease without esophagitis; I25.10 Atherosclerotic heart disease of native coronary artery without angina pectoris; E03.9 Hypothyroidism, unspecified; I48.91 Unspecified atrial fibrillation; Z79.899 Other long term (current) drug therapy; Z87.891 Personal history of nicotine dependence; Z90.710 Acquired absence of both cervix and uterus
CPT/HCPCS: 36415; 80053; 82306; 83036; 83735; 85025; 96372; G0463; J3420

== ENCOUNTER → 2020-09-11 | Outpatient (CLI) | payer MEDICARE, MEDICAID ==
[2020-09-11 10:34] VITALS: BP 101/46
[2020-09-11 10:55] VITALS: BP 108/45
[2020-09-11 11:42] LABS: Basophils # (auto) 0 10 ^3/uL (0-0.2); Basophils % (auto) 0.6 % (0.0-2.0); Eosinophils # (auto) 0.1 10 ^3/uL (0-0.8); Eosinophils % (auto) 2.7 % (0.0-7.0); Hematocrit 37.9 % (36.0-46.0); Hemoglobin 12.7 g/dL (12.2-16.2); Lymphocytes # (auto) 1.2 10 ^3/uL (0.4-5.4); Lymphocytes % (auto) 25.1 % (10.0-50.0); Mean Corpuscular Hemoglobin 27.5 pg (28.0-32.0); Mean Corpuscular Hgb Conc. 33.6 g/dL (32.0-36.0); Mean Corpuscular Volume 81.9 fL (80.0-100.0); Monocytes # (auto) 0.5 10 ^3/uL (0-1.3); Monocytes % (auto) 10.1 % (0.0-12.0); Neutrophils # (auto) 2.9 10 ^3/uL (1.6-8.6); Neutrophils % (auto) 61.5 % (37.0-80.0); Nucleated Red Blood Cells % 0.2 %; Platelet Count (auto) 281 10^3/uL (140-450); Red Blood Cells 4.62 10^6/uL (4.0-5.20); Red Cell Distribution Width 15.3 % (11.8-14.3); White Blood Cell 4.7 10^3/uL (4.4-10.8)
[2020-09-11 11:50] LABS: Albumin 3.5 g/dL (3.4-5.0); Calcium 9.1 mg/dL (8.5-10.1); Magnesium 2.7 mg/dL (1.6-2.6); Potassium 3.8 mmol/L (3.5-5.1)
[2020-09-11 11:55] LABS: BUN/Creatinine Ratio 11.6; Bilirubin, Total 1.3 mg/dL (0.2-1.0); Total Protein 7.3 g/dL (6.4-8.2)
== END | disposition home or self-care (01) ==
LOC: CHF HDHVI 10:34
PROVIDERS: ATTEND Internal Medicine Cardiovascular Disease
DX: I27.0 Primary pulmonary hypertension (principal); I25.10 Atherosclerotic heart disease of native coronary artery without angina pectoris; I48.91 Unspecified atrial fibrillation; E11.22 Type 2 diabetes mellitus with diabetic chronic kidney disease; I50.22 Chronic systolic (congestive) heart failure; N18.9 Chronic kidney disease, unspecified; J43.9 Emphysema, unspecified; K21.9 Gastro-esophageal reflux disease without esophagitis; E03.9 Hypothyroidism, unspecified; Z79.899 Other long term (current) drug therapy; Z87.891 Personal history of nicotine dependence; Z90.710 Acquired absence of both cervix and uterus
CPT/HCPCS: 36415; 80053; 83735; 85025; 96372; G0463; J3420

== ENCOUNTER → 2021-04-01 | Outpatient (CLI) | payer MEDICARE, MEDICAID ==
[~2021-04-01] MED LIST changes: +POTASSIUM CHL 10 Meq TABLET PO ONE; +POTASSIUM CHL 20 Meq TABLET PO ONE
[2021-04-01 10:20] VITALS: BP 104/48
[2021-04-01 10:44] VITALS: BP 104/48
[2021-04-01 11:32] LABS: Basophils # (auto) 0.1 10 ^3/uL (0-0.2); Lymphocytes # (auto) 0.9 10 ^3/uL (0.4-5.4); Monocytes # (auto) 0.5 10 ^3/uL (0-1.3); Neutrophils # (auto) 4.3 10 ^3/uL (1.6-8.6); White Blood Cell 5.8 10^3/uL (4.4-10.8)
[2021-04-01 11:35] LABS: Basophils % (auto) 1.1 % (0.0-2.0); Eosinophils # (auto) 0.1 10 ^3/uL (0-0.8); Eosinophils % (auto) 2.4 % (0.0-7.0); Hemoglobin 12.3 g/dL (12.2-16.2); Lymphocytes % (auto) 14.7 % (10.0-50.0); Mean Corpuscular Hemoglobin 25.8 pg (28.0-32.0); Mean Corpuscular Hgb Conc. 32.3 g/dL (32.0-36.0); Mean Corpuscular Volume 79.9 fL (80.0-100.0); Monocytes % (auto) 8.3 % (0.0-12.0); Neutrophils % (auto) 73.5 % (37.0-80.0); Nucleated Red Blood Cells % 0.2 %; Red Blood Cells 4.76 10^6/uL (4.0-5.20); Red Cell Distribution Width 15.4 % (11.8-14.3)
[2021-04-01 11:45] LABS: Potassium 3.3 mmol/L (3.5-5.1)
[2021-04-01 11:59] LABS: Albumin 3.5 g/dL (3.4-5.0); BUN/Creatinine Ratio 11.3; Bilirubin, Total 1.1 mg/dL (0.2-1.0); Calcium 8.9 mg/dL (8.5-10.1); Magnesium 3.3 mg/dL (1.6-2.6); Total Protein 7.1 g/dL (6.4-8.2)
== END | disposition home or self-care (01) ==
LOC: CHF HDHVI 10:26
PROVIDERS: ATTEND Internal Medicine Cardiovascular Disease
DX: I27.21 Secondary pulmonary arterial hypertension (principal); I13.0 Hypertensive heart and chronic kidney disease with heart failure and stage 1 through stage 4 chronic kidney disease, or unspecified chronic kidney disease; E11.22 Type 2 diabetes mellitus with diabetic chronic kidney disease; I50.22 Chronic systolic (congestive) heart failure; N18.9 Chronic kidney disease, unspecified; I25.10 Atherosclerotic heart disease of native coronary artery without angina pectoris; I48.91 Unspecified atrial fibrillation; J43.9 Emphysema, unspecified; K21.9 Gastro-esophageal reflux disease without esophagitis; E03.9 Hypothyroidism, unspecified; Z79.899 Other long term (current) drug therapy; Z87.891 Personal history of nicotine dependence; Z90.710 Acquired absence of both cervix and uterus
CPT/HCPCS: 36415; 80053; 83735; 85025; 96372; G0463; J3420

== ENCOUNTER → 2021-04-29 | Outpatient (CLI) | payer MEDICARE, MEDICAID ==
[~2021-04-29] MED LIST changes: -POTASSIUM CHL 10 Meq TABLET PO ONE; -POTASSIUM CHL 20 Meq TABLET PO ONE
[2021-04-29 11:03] VITALS: BP 131/76
[2021-04-29 11:21] VITALS: BP 104/46
[2021-04-29 15:24] LABS: Potassium 4.2 mmol/L (3.5-5.1)
[2021-04-29 15:35] LABS: Basophils # (auto) 0 10 ^3/uL (0-0.2); Basophils % (auto) 0.8 % (0.0-2.0); Eosinophils # (auto) 0.1 10 ^3/uL (0-0.8); Hematocrit 37.1 % (36.0-46.0); Hemoglobin 11.9 g/dL (12.2-16.2); Lymphocytes # (auto) 0.9 10 ^3/uL (0.4-5.4); Mean Corpuscular Hemoglobin 25.4 pg (28.0-32.0); Mean Corpuscular Hgb Conc. 32.2 g/dL (32.0-36.0); Mean Corpuscular Volume 78.7 fL (80.0-100.0); Monocytes # (auto) 0.4 10 ^3/uL (0-1.3); Monocytes % (auto) 8.2 % (0.0-12.0); Neutrophils # (auto) 3.2 10 ^3/uL (1.6-8.6); Red Blood Cells 4.71 10^6/uL (4.0-5.20); Red Cell Distribution Width 15.8 % (11.8-14.3); White Blood Cell 4.6 10^3/uL (4.4-10.8)
[2021-04-29 15:39] LABS: Albumin 3.6 g/dL (3.4-5.0); BUN/Creatinine Ratio 11.8; Bilirubin, Total 1.4 mg/dL (0.2-1.0); Calcium 9.3 mg/dL (8.5-10.1); Magnesium 3.5 mg/dL (1.6-2.6)
== END | disposition home or self-care (01) ==
LOC: CHF HDHVI 11:03
PROVIDERS: ATTEND Internal Medicine Cardiovascular Disease
DX: I27.21 Secondary pulmonary arterial hypertension (principal); I13.0 Hypertensive heart and chronic kidney disease with heart failure and stage 1 through stage 4 chronic kidney disease, or unspecified chronic kidney disease; E11.22 Type 2 diabetes mellitus with diabetic chronic kidney disease; I50.22 Chronic systolic (congestive) heart failure; N18.9 Chronic kidney disease, unspecified; I25.10 Atherosclerotic heart disease of native coronary artery without angina pectoris; I48.91 Unspecified atrial fibrillation; J43.9 Emphysema, unspecified; K21.9 Gastro-esophageal reflux disease without esophagitis; E03.9 Hypothyroidism, unspecified; Z79.899 Other long term (current) drug therapy; Z87.891 Personal history of nicotine dependence; Z90.710 Acquired absence of both cervix and uterus
CPT/HCPCS: 36415; 80053; 82306; 82607; 83036; 83735; 85025; 96372; G0463; J3420

== ENCOUNTER → 2021-05-13 | Outpatient (CLI) | payer MEDICARE, MEDICAID ==
[~2021-05-13] MED LIST changes: -CYANOCOBALAMIN (B-12) 1000 MCG/1 ML VIAL IM ONE; -CYANOCOBALAMIN (B-12) 1000 MCG/1 ML VIAL ONE
== END | disposition home or self-care (01) ==
LOC: Rad HDHVI 13:12
PROVIDERS: ATTEND Internal Medicine Cardiovascular Disease
DX: R05.9 Cough, unspecified (principal); I70.0 Atherosclerosis of aorta; R91.1 Solitary pulmonary nodule; R09.89 Other specified symptoms and signs involving the circulatory and respiratory systems; R06.02 Shortness of breath
CPT/HCPCS: 71046

== ENCOUNTER → 2021-05-29 | Outpatient (CLI) | payer MEDICARE, MEDICAID ==
[~2021-05-29] VITALS: Ht 30.5 cm; Wt 62.7 kg
[~2021-05-29] MED LIST changes: +CYANOCOBALAMIN (B-12) 1000 MCG/1 ML VIAL IM ONE; +CYANOCOBALAMIN (B-12) 1000 MCG/1 ML VIAL ONE
[2021-05-29 11:00] VITALS: BP 110/57
[2021-05-29 11:47] VITALS: BP 101/47
[2021-05-29 15:17] LABS: Basophils # (auto) 0.1 10 ^3/uL (0-0.2); Eosinophils # (auto) 0.1 10 ^3/uL (0-0.8); Mean Corpuscular Hemoglobin 25.1 pg (28.0-32.0); Monocytes # (auto) 0.4 10 ^3/uL (0-1.3); White Blood Cell 4.8 10^3/uL (4.4-10.8)
[2021-05-29 15:20] LABS: Basophils % (auto) 2.4 % (0.0-2.0); Hematocrit 36.7 % (36.0-46.0); Hemoglobin 11.7 g/dL (12.2-16.2); Lymphocytes # (auto) 1.1 10 ^3/uL (0.4-5.4); Lymphocytes % (auto) 22.3 % (10.0-50.0); Mean Corpuscular Hgb Conc. 31.9 g/dL (32.0-36.0); Mean Corpuscular Volume 78.5 fL (80.0-100.0); Monocytes % (auto) 8.1 % (0.0-12.0); Neutrophils # (auto) 3.1 10 ^3/uL (1.6-8.6); Neutrophils % (auto) 64.2 % (37.0-80.0); Nucleated Red Blood Cells % 0.1 %; Red Blood Cells 4.68 10^6/uL (4.0-5.20); Red Cell Distribution Width 16.2 % (11.8-14.3)
[2021-05-29 15:27] LABS: Albumin 3.5 g/dL (3.4-5.0); Calcium 9.2 mg/dL (8.5-10.1)
[2021-05-29 15:30] LABS: BUN/Creatinine Ratio 10.6; Bilirubin, Total 2.3 mg/dL (0.2-1.0); Total Protein 6.8 g/dL (6.4-8.2)
== END | disposition home or self-care (01) ==
LOC: CHF HDHVI 10:54
PROVIDERS: ATTEND Internal Medicine Cardiovascular Disease
DX: I27.21 Secondary pulmonary arterial hypertension (principal); I13.0 Hypertensive heart and chronic kidney disease with heart failure and stage 1 through stage 4 chronic kidney disease, or unspecified chronic kidney disease; E11.22 Type 2 diabetes mellitus with diabetic chronic kidney disease; I50.22 Chronic systolic (congestive) heart failure; N18.9 Chronic kidney disease, unspecified; I25.10 Atherosclerotic heart disease of native coronary artery without angina pectoris; I48.91 Unspecified atrial fibrillation; J43.9 Emphysema, unspecified; K21.9 Gastro-esophageal reflux disease without esophagitis; E03.9 Hypothyroidism, unspecified; Z79.899 Other long term (current) drug therapy; Z87.891 Personal history of nicotine dependence; Z90.710 Acquired absence of both cervix and uterus
CPT/HCPCS: 36415; 80053; 83735; 85025; 96372; G0463; J3420

== ENCOUNTER → 2021-06-26 | Outpatient (CLI) | payer MEDICARE, MEDICAID ==
[2021-06-26 11:13] VITALS: BP 108/84
[2021-06-26 12:20] VITALS: BP 103/42
[2021-06-26 15:20] LABS: Basophils # (auto) 0 10 ^3/uL (0-0.2); Eosinophils # (auto) 0.1 10 ^3/uL (0-0.8); Lymphocytes # (auto) 0.9 10 ^3/uL (0.4-5.4); Monocytes # (auto) 0.5 10 ^3/uL (0-1.3)
[2021-06-26 15:21] LABS: Eosinophils % (auto) 2.2 % (0.0-7.0); Hematocrit 36.2 % (36.0-46.0); Hemoglobin 11.7 g/dL (12.2-16.2); Lymphocytes % (auto) 19.4 % (10.0-50.0); Mean Corpuscular Hemoglobin 25.7 pg (28.0-32.0); Mean Corpuscular Hgb Conc. 32.4 g/dL (32.0-36.0); Mean Corpuscular Volume 79.2 fL (80.0-100.0); Monocytes % (auto) 11.2 % (0.0-12.0); Neutrophils % (auto) 66.2 % (37.0-80.0); Red Blood Cells 4.57 10^6/uL (4.0-5.20); Red Cell Distribution Width 17.8 % (11.8-14.3); White Blood Cell 4.5 10^3/uL (4.4-10.8)
[2021-06-26 15:37] LABS: Albumin 3.5 g/dL (3.4-5.0); Calcium 8.9 mg/dL (8.5-10.1); Magnesium 2.3 mg/dL (1.6-2.6); Potassium 3.7 mmol/L (3.5-5.1)
[2021-06-26 15:41] LABS: BUN/Creatinine Ratio 8.3; Bilirubin, Total 2.2 mg/dL (0.2-1.0); Total Protein 6.9 g/dL (6.4-8.2)
== END | disposition home or self-care (01) ==
LOC: CHF HDHVI 11:13
PROVIDERS: ATTEND Internal Medicine Cardiovascular Disease
DX: I13.0 Hypertensive heart and chronic kidney disease with heart failure and stage 1 through stage 4 chronic kidney disease, or unspecified chronic kidney disease (principal); E11.22 Type 2 diabetes mellitus with diabetic chronic kidney disease; I50.22 Chronic systolic (congestive) heart failure; N18.9 Chronic kidney disease, unspecified; I27.21 Secondary pulmonary arterial hypertension; I25.10 Atherosclerotic heart disease of native coronary artery without angina pectoris; I48.91 Unspecified atrial fibrillation; I70.0 Atherosclerosis of aorta; J43.9 Emphysema, unspecified; K21.9 Gastro-esophageal reflux disease without esophagitis; Z79.899 Other long term (current) drug therapy; Z87.891 Personal history of nicotine dependence
CPT/HCPCS: 36415; 80053; 83735; 85025; 96372; G0463; J3420

== ENCOUNTER → 2021-07-21 | Outpatient (CLI) | payer MEDICARE, MEDICAID ==
[~2021-07-21] MED LIST changes: -CYANOCOBALAMIN (B-12) 1000 MCG/1 ML VIAL IM ONE; -CYANOCOBALAMIN (B-12) 1000 MCG/1 ML VIAL ONE
[2021-07-21 08:15] VITALS: BP 124/52
[2021-07-21 08:36] VITALS: BP 104/53
[2021-07-21 11:35] LABS: Basophils # (auto) 0 10 ^3/uL (0-0.2); Eosinophils # (auto) 0.2 10 ^3/uL (0-0.8); Hemoglobin 11.4 g/dL (12.2-16.2); Monocytes # (auto) 0.4 10 ^3/uL (0-1.3)
[2021-07-21 11:38] LABS: Basophils % (auto) 0.5 % (0.0-2.0); Hematocrit 34.6 % (36.0-46.0); Lymphocytes % (auto) 21.6 % (10.0-50.0); Mean Corpuscular Hemoglobin 25.9 pg (28.0-32.0); Mean Corpuscular Hgb Conc. 32.9 g/dL (32.0-36.0); Mean Corpuscular Volume 78.8 fL (80.0-100.0); Neutrophils % (auto) 64.9 % (37.0-80.0); Nucleated Red Blood Cells % 0.1 %; Red Cell Distribution Width 17.3 % (11.8-14.3); White Blood Cell 4.6 10^3/uL (4.4-10.8)
[2021-07-21 11:47] LABS: INR 1.19 (0.9-1.15); Partial Thromboplastin Time 34.8 sec (23.6-33.0)
== END | disposition home or self-care (01) ==
LOC: Rad HDHVI 07:54
PROVIDERS: ATTEND Internal Medicine Cardiovascular Disease
DX: Z01.812 Encounter for preprocedural laboratory examination (principal); I27.21 Secondary pulmonary arterial hypertension; R53.83 Other fatigue; R06.02 Shortness of breath; J84.9 Interstitial pulmonary disease, unspecified
CPT/HCPCS: 36415; 71046; 85025; 85610; 85730; 93005; G0463

== ENCOUNTER 2021-07-23 09:02 | Day surgery (SDC) | payer MEDICARE, MEDICAID ==
[2021-07-21 11:59] LABS: BUN/Creatinine Ratio 7.5; Potassium 3.4 mmol/L (3.5-5.1)
[~2021-07-23] VITALS: Ht 157.5 cm; Wt 61.7 kg
[2021-07-23] MEDS ORDERED: fentaNYL CITRATE 100 MCG/2 ML VL ONE (09:44)
[2021-07-23] MEDS ORDERED: MIDAZOLAM HCL 2MG/2ML 2ml VIAL (1mg/ml) ONE (09:45)
[2021-07-23] MEDS ORDERED: IODIXANOL 320MG/ML 100ML BTL IV ONE ×2 (10:05→10:41)
[2021-07-23] MEDS ORDERED: LIDOCAINE 2%HCL (LOCAL ANESTH.) INJ 10ml MDV ONE (10:06)
[2021-07-23] MEDS ORDERED: ANGIOMAX 250 MG VIAL IV ONE (10:10)
[2021-07-23] MEDS ORDERED: SODIUM CHL 0.9% 0 ML ONE (10:10)
[2021-07-23] MEDS ORDERED: diphenhdrAMINE HCL 50 MG/1 ML VL ONE (10:21)
== END 2021-07-23 13:50 | disposition home or self-care (01) ==
LOC: CATH 09:02
PROVIDERS: ATTEND Internal Medicine Cardiovascular Disease
DX: I27.20 Pulmonary hypertension, unspecified (principal); I25.10 Atherosclerotic heart disease of native coronary artery without angina pectoris; I50.9 Heart failure, unspecified; J43.9 Emphysema, unspecified; Z90.710 Acquired absence of both cervix and uterus; Z82.49 Family history of ischemic heart disease and other diseases of the circulatory system; Z83.3 Family history of diabetes mellitus; Z20.822 Contact with and (suspected) exposure to COVID-19; Q24.5 Malformation of coronary vessels
CPT/HCPCS: 36221; 36415; 75625; 80048; 93460; C1751; C1760; C1894; C9803; J1200; J1644; J2001; J2250; J3010; J7030; Q9967; U0003; 99152; 99153

== ENCOUNTER → 2021-09-07 | Outpatient (CLI) | payer MEDICARE, MEDICAID ==
[~2021-09-07] MED LIST changes: +CYANOCOBALAMIN (B-12) 1000 MCG/1 ML VIAL IM ONE; +CYANOCOBALAMIN (B-12) 1000 MCG/1 ML VIAL ONE
[2021-09-07 11:17] VITALS: BP 98/41
[2021-09-07 12:24] VITALS: BP 101/54
[2021-09-07 15:33] LABS: Basophils # (auto) 0 10 ^3/uL (0-0.2); Basophils % (auto) 0.7 % (0.0-2.0); Eosinophils # (auto) 0.2 10 ^3/uL (0-0.8); Eosinophils % (auto) 3.6 % (0.0-7.0); Hematocrit 35.2 % (36.0-46.0); Hemoglobin 11.5 g/dL (12.2-16.2); Lymphocytes # (auto) 0.9 10 ^3/uL (0.4-5.4); Lymphocytes % (auto) 20.7 % (10.0-50.0); Mean Corpuscular Hemoglobin 26.1 pg (28.0-32.0); Mean Corpuscular Hgb Conc. 32.7 g/dL (32.0-36.0); Mean Corpuscular Volume 79.7 fL (80.0-100.0); Monocytes # (auto) 0.4 10 ^3/uL (0-1.3); Red Blood Cells 4.41 10^6/uL (4.0-5.20); Red Cell Distribution Width 15.8 % (11.8-14.3); White Blood Cell 4.5 10^3/uL (4.4-10.8)
[2021-09-07 15:45] LABS: Albumin 3.4 g/dL (3.4-5.0); Calcium 9.1 mg/dL (8.5-10.1); Magnesium 2.6 mg/dL (1.6-2.6); Potassium 3.8 mmol/L (3.5-5.1)
[2021-09-07 15:49] LABS: BUN/Creatinine Ratio 9.1; Bilirubin, Total 1.7 mg/dL (0.2-1.0)
== END | disposition home or self-care (01) ==
LOC: CHF HDHVI 11:16
PROVIDERS: ATTEND Internal Medicine Cardiovascular Disease
DX: I27.0 Primary pulmonary hypertension (principal); I10 Essential (primary) hypertension
CPT/HCPCS: 36415; 80053; 83735; 85025; 96372; G0463; J3420

== ENCOUNTER → 2021-11-02 | Outpatient (CLI) | payer MEDICARE, MEDICAID ==
[2021-11-02 10:35] VITALS: BP 112/50
[2021-11-02 11:00] VITALS: BP 115/74
[2021-11-02 16:08] LABS: Basophils # (auto) 0 10 ^3/uL (0-0.2); Basophils % (auto) 0.7 % (0.0-2.0); Eosinophils # (auto) 0.1 10 ^3/uL (0-0.8); Eosinophils % (auto) 2.6 % (0.0-7.0); Hematocrit 34.7 % (36.0-46.0); Hemoglobin 10.6 g/dL (12.2-16.2); Lymphocytes # (auto) 0.7 10 ^3/uL (0.4-5.4); Lymphocytes % (auto) 16.8 % (10.0-50.0); Mean Corpuscular Hemoglobin 24.2 pg (28.0-32.0); Mean Corpuscular Hgb Conc. 30.5 g/dL (32.0-36.0); Mean Corpuscular Volume 79.2 fL (80.0-100.0); Monocytes # (auto) 0.4 10 ^3/uL (0-1.3); Monocytes % (auto) 8.3 % (0.0-12.0); Neutrophils # (auto) 3.1 10 ^3/uL (1.6-8.6); Neutrophils % (auto) 71.6 % (37.0-80.0); Red Blood Cells 4.37 10^6/uL (4.0-5.20); Red Cell Distribution Width 17.2 % (11.8-14.3); White Blood Cell 4.3 10^3/uL (4.4-10.8)
[2021-11-02 16:18] LABS: Albumin 3.2 g/dL (3.4-5.0); Magnesium 2.5 mg/dL (1.6-2.6); Potassium 4.5 mmol/L (3.5-5.1)
[2021-11-02 16:21] LABS: Bilirubin, Total 1.7 mg/dL (0.2-1.0); Total Protein 6.8 g/dL (6.4-8.2)
== END | disposition home or self-care (01) ==
LOC: CHF HDHVI 10:37
PROVIDERS: ATTEND Internal Medicine Cardiovascular Disease
DX: I27.0 Primary pulmonary hypertension (principal); I11.0 Hypertensive heart disease with heart failure; I50.9 Heart failure, unspecified; Z79.899 Other long term (current) drug therapy
CPT/HCPCS: 36415; 80053; 83735; 85025; 96372; G0463; J3420

== ENCOUNTER → 2021-12-03 | Outpatient (CLI) | payer MEDICARE, MEDICAID ==
[2021-12-03 10:32] VITALS: BP 109/53
[2021-12-03 10:55] VITALS: BP 109/49
[2021-12-03 11:43] LABS: Basophils # (auto) 0 10 ^3/uL (0-0.2); Eosinophils # (auto) 0.2 10 ^3/uL (0-0.8); Hemoglobin 10.8 g/dL (12.2-16.2); Lymphocytes # (auto) 0.9 10 ^3/uL (0.4-5.4)
[2021-12-03 11:45] LABS: Basophils % (auto) 0.7 % (0.0-2.0); Eosinophils % (auto) 3.9 % (0.0-7.0); Hematocrit 35.2 % (36.0-46.0); Lymphocytes % (auto) 20.7 % (10.0-50.0); Mean Corpuscular Hgb Conc. 30.8 g/dL (32.0-36.0); Mean Corpuscular Volume 78.1 fL (80.0-100.0); Monocytes # (auto) 0.4 10 ^3/uL (0-1.3); Monocytes % (auto) 10.4 % (0.0-12.0); Neutrophils # (auto) 2.8 10 ^3/uL (1.6-8.6); Neutrophils % (auto) 64.3 % (37.0-80.0); Nucleated Red Blood Cells % 0.1 %; Red Blood Cells 4.51 10^6/uL (4.0-5.20); Red Cell Distribution Width 16.9 % (11.8-14.3); White Blood Cell 4.3 10^3/uL (4.4-10.8)
[2021-12-03 11:49] LABS: Magnesium 2.2 mg/dL (1.6-2.6); Potassium 3.6 mmol/L (3.5-5.1)
[2021-12-03 11:56] LABS: Albumin 3.5 g/dL (3.4-5.0); BUN/Creatinine Ratio 9.8; Calcium 9.2 mg/dL (8.5-10.1); Total Protein 6.9 g/dL (6.4-8.2)
== END | disposition home or self-care (01) ==
LOC: CHF HDHVI 10:30
PROVIDERS: ATTEND Internal Medicine Cardiovascular Disease
DX: I27.0 Primary pulmonary hypertension (principal); I11.0 Hypertensive heart disease with heart failure; I50.9 Heart failure, unspecified; Z79.899 Other long term (current) drug therapy
CPT/HCPCS: 36415; 80053; 80061; 83735; 85025; 96372; G0463; J3420

== ENCOUNTER → 2021-12-31 | Outpatient (CLI) | payer MEDICARE, MEDICAID ==
[~2021-12-31] VITALS: Ht 165.1 cm; Wt 44.1 kg
[2021-12-31 10:40] VITALS: BP 105/45
[2021-12-31 11:06] VITALS: BP 72/53
[2021-12-31 12:32] LABS: Basophils # (auto) 0 10 ^3/uL (0-0.2); Eosinophils # (auto) 0.1 10 ^3/uL (0-0.8); Hemoglobin 10.9 g/dL (12.2-16.2); Monocytes # (auto) 0.5 10 ^3/uL (0-1.3); White Blood Cell 5.8 10^3/uL (4.4-10.8)
[2021-12-31 12:35] LABS: Basophils % (auto) 0.5 % (0.0-2.0); Eosinophils % (auto) 1.9 % (0.0-7.0); Hematocrit 34.8 % (36.0-46.0); Lymphocytes # (auto) 0.9 10 ^3/uL (0.4-5.4); Lymphocytes % (auto) 14.8 % (10.0-50.0); Mean Corpuscular Hemoglobin 24.2 pg (28.0-32.0); Mean Corpuscular Hgb Conc. 31.1 g/dL (32.0-36.0); Mean Corpuscular Volume 77.7 fL (80.0-100.0); Monocytes % (auto) 9.2 % (0.0-12.0); Neutrophils # (auto) 4.3 10 ^3/uL (1.6-8.6); Neutrophils % (auto) 73.6 % (37.0-80.0); Red Blood Cells 4.49 10^6/uL (4.0-5.20); Red Cell Distribution Width 16.9 % (11.8-14.3)
[2021-12-31 12:40] LABS: Albumin 3.4 g/dL (3.4-5.0); Calcium 8.8 mg/dL (8.5-10.1); Magnesium 2.1 mg/dL (1.6-2.6); Potassium 3.1 mmol/L (3.5-5.1)
[2021-12-31 12:44] LABS: BUN/Creatinine Ratio 9.8; Total Protein 6.8 g/dL (6.4-8.2)
== END | disposition home or self-care (01) ==
LOC: CHF HDHVI 10:33
PROVIDERS: ATTEND Internal Medicine Cardiovascular Disease
DX: I27.21 Secondary pulmonary arterial hypertension (principal); I11.0 Hypertensive heart disease with heart failure; I50.9 Heart failure, unspecified; I48.0 Paroxysmal atrial fibrillation; E78.5 Hyperlipidemia, unspecified; Z79.899 Other long term (current) drug therapy
CPT/HCPCS: 36415; 80053; 83735; 85025; 96372; G0463; J3420

== ENCOUNTER → 2022-01-06 | Outpatient (CLI) | payer MEDICARE, MEDICAID ==
[~2022-01-06] MED LIST changes: -CYANOCOBALAMIN (B-12) 1000 MCG/1 ML VIAL IM ONE; -CYANOCOBALAMIN (B-12) 1000 MCG/1 ML VIAL ONE
== END | disposition home or self-care (01) ==
LOC: Rad HDHVI 10:30
PROVIDERS: ATTEND Internal Medicine Cardiovascular Disease
DX: I08.1 Rheumatic disorders of both mitral and tricuspid valves (principal); R07.89 Other chest pain; R06.02 Shortness of breath
CPT/HCPCS: 93306

== ENCOUNTER → 2022-01-29 | Outpatient (CLI) | payer MEDICARE, MEDICAID ==
[~2022-01-29] MED LIST changes: +CYANOCOBALAMIN (B-12) 1000 MCG/1 ML VIAL IM ONE; +CYANOCOBALAMIN (B-12) 1000 MCG/1 ML VIAL ONE
[2022-01-29 11:26] VITALS: BP 111/53
[2022-01-29 12:13] VITALS: BP 110/56
[2022-01-29 16:33] LABS: Albumin 3.1 g/dL (3.4-5.0); Calcium 8.4 mg/dL (8.5-10.1); Magnesium 2.6 mg/dL (1.6-2.6); Potassium 3.6 mmol/L (3.5-5.1)
[2022-01-29 16:36] LABS: BUN/Creatinine Ratio 15.3; Bilirubin, Total 1.4 mg/dL (0.2-1.0)
[2022-01-29 16:37] LABS: Basophils # (auto) 0 10 ^3/uL (0-0.2); Eosinophils # (auto) 0.1 10 ^3/uL (0-0.8); Hemoglobin 10.4 g/dL (12.2-16.2); Mean Corpuscular Hemoglobin 23.5 pg (28.0-32.0); Neutrophils # (auto) 3.6 10 ^3/uL (1.6-8.6); Nucleated Red Blood Cells % 0.1 %
[2022-01-29 16:43] LABS: Basophils % (auto) 0.3 % (0.0-2.0); Eosinophils % (auto) 1.5 % (0.0-7.0); Hematocrit 33.7 % (36.0-46.0); Lymphocytes # (auto) 1.7 10 ^3/uL (0.4-5.4); Lymphocytes % (auto) 26.8 % (10.0-50.0); Mean Corpuscular Hgb Conc. 30.8 g/dL (32.0-36.0); Mean Corpuscular Volume 76.2 fL (80.0-100.0); Monocytes # (auto) 0.8 10 ^3/uL (0-1.3); Neutrophils % (auto) 58.4 % (37.0-80.0); Red Blood Cells 4.43 10^6/uL (4.0-5.20); Red Cell Distribution Width 16.3 % (11.8-14.3); White Blood Cell 6.2 10^3/uL (4.4-10.8)
== END | disposition home or self-care (01) ==
LOC: CHF HDHVI 11:18
PROVIDERS: ATTEND Internal Medicine Cardiovascular Disease
DX: I27.21 Secondary pulmonary arterial hypertension (principal); R53.83 Other fatigue; D64.9 Anemia, unspecified
CPT/HCPCS: 36415; 80053; 83735; 85025; 94618; 96372; G0463; J3420

== ENCOUNTER → 2022-02-26 | Outpatient (CLI) | payer MEDICARE, MEDICAID ==
[~2022-02-26] MED LIST changes: +TRIAMCINOLONE 40MG/ML 1ML VIAL IM ONE; +TRIAMCINOLONE 40MG/ML 1ML VIAL ONE
[2022-02-26 11:52] VITALS: BP 114/64
[2022-02-26 12:44] VITALS: BP 111/50
== END | disposition home or self-care (01) ==
LOC: CHF HDHVI 11:41
PROVIDERS: ATTEND Internal Medicine Cardiovascular Disease
DX: K13.0 Diseases of lips (principal); K13.29 Other disturbances of oral epithelium, including tongue; D64.9 Anemia, unspecified; I27.21 Secondary pulmonary arterial hypertension
CPT/HCPCS: 96372; G0463; J3301; J3420

== ENCOUNTER → 2022-03-26 | Outpatient (CLI) | payer MEDICARE, MEDICAID ==
[~2022-03-26] MED LIST changes: +POTASSIUM EFFERVESENT TAB 25 MEQ ONE; +POTASSIUM EFFERVESENT TAB 25 MEQ PO ONE; -TRIAMCINOLONE 40MG/ML 1ML VIAL IM ONE; -TRIAMCINOLONE 40MG/ML 1ML VIAL ONE
[2022-03-26 11:08] VITALS: BP 116/72
[2022-03-26 11:54] VITALS: BP 107/48
[2022-03-26 13:48] LABS: Basophils # (auto) 0 10 ^3/uL (0-0.2); Eosinophils # (auto) 0.1 10 ^3/uL (0-0.8); Monocytes # (auto) 0.5 10 ^3/uL (0-1.3); Neutrophils # (auto) 3.9 10 ^3/uL (1.6-8.6)
[2022-03-26 13:50] LABS: Basophils % (auto) 0.4 % (0.0-2.0); Eosinophils % (auto) 2.3 % (0.0-7.0); Hematocrit 33.9 % (36.0-46.0); Hemoglobin 10.2 g/dL (12.2-16.2); Lymphocytes # (auto) 0.7 10 ^3/uL (0.4-5.4); Lymphocytes % (auto) 14.1 % (10.0-50.0); Mean Corpuscular Hemoglobin 22.5 pg (28.0-32.0); Mean Corpuscular Hgb Conc. 29.9 g/dL (32.0-36.0); Monocytes % (auto) 9.5 % (0.0-12.0); Neutrophils % (auto) 73.7 % (37.0-80.0); Nucleated Red Blood Cells % 0.1 %; Red Blood Cells 4.53 10^6/uL (4.0-5.20); Red Cell Distribution Width 18.4 % (11.8-14.3); White Blood Cell 5.3 10^3/uL (4.4-10.8)
[2022-03-26 14:00] LABS: Albumin 3.3 g/dL (3.4-5.0); Magnesium 2.6 mg/dL (1.6-2.6); Potassium 4.1 mmol/L (3.5-5.1)
[2022-03-26 14:13] LABS: BUN/Creatinine Ratio 9.8; Bilirubin, Total 0.9 mg/dL (0.2-1.0); Total Protein 6.2 g/dL (6.4-8.2)
== END | disposition home or self-care (01) ==
LOC: CHF HDHVI 11:08
PROVIDERS: ATTEND Internal Medicine Cardiovascular Disease
DX: I27.21 Secondary pulmonary arterial hypertension (principal); R06.02 Shortness of breath; R53.1 Weakness
CPT/HCPCS: 36415; 80053; 83735; 85025; 96372; G0463; J3420

== ENCOUNTER → 2022-04-12 | Outpatient (CLI) | payer MEDICARE, MEDICAID ==
[~2022-04-12] MED LIST changes: -CYANOCOBALAMIN (B-12) 1000 MCG/1 ML VIAL IM ONE; -CYANOCOBALAMIN (B-12) 1000 MCG/1 ML VIAL ONE; -POTASSIUM EFFERVESENT TAB 25 MEQ ONE; -POTASSIUM EFFERVESENT TAB 25 MEQ PO ONE
== END | disposition home or self-care (01) ==
LOC: Rad HDHVI 11:10
PROVIDERS: ATTEND Internal Medicine Cardiovascular Disease
DX: M19.012 Primary osteoarthritis, left shoulder (principal); M19.011 Primary osteoarthritis, right shoulder; N28.1 Cyst of kidney, acquired; M47.816 Spondylosis without myelopathy or radiculopathy, lumbar region; M25.712 Osteophyte, left shoulder; M25.711 Osteophyte, right shoulder; M25.78 Osteophyte, vertebrae
CPT/HCPCS: 72131; 73200

== ENCOUNTER → 2022-04-23 | Outpatient (CLI) | payer MEDICARE, MEDICAID ==
[~2022-04-23] MED LIST changes: +CYANOCOBALAMIN (B-12) 1000 MCG/1 ML VIAL IM ONE; +CYANOCOBALAMIN (B-12) 1000 MCG/1 ML VIAL ONE; +CYANOCOBALAMIN 500 MCG TAB PO SCH
[2022-04-23 10:30] VITALS: BP 118/54
[2022-04-23 11:35] VITALS: BP 104/50
== END | disposition home or self-care (01) ==
LOC: CHF HDHVI 10:23
PROVIDERS: ATTEND Internal Medicine Cardiovascular Disease
DX: I27.20 Pulmonary hypertension, unspecified (principal)
CPT/HCPCS: 93005; 96372; G0463; J3420

== ENCOUNTER → 2022-05-20 | Outpatient (CLI) | payer MEDICARE, MEDICAID ==
[~2022-05-20] MED LIST changes: -CYANOCOBALAMIN 500 MCG TAB PO SCH
[2022-05-20 10:50] VITALS: BP 120/55
[2022-05-20 11:15] VITALS: BP 114/49
[2022-05-20 11:49] LABS: Basophils # (auto) 0 10 ^3/uL (0-0.2); Eosinophils # (auto) 0.1 10 ^3/uL (0-0.8); Eosinophils % (auto) 1.3 % (0.0-7.0)
[2022-05-20 11:56] LABS: Basophils % (auto) 0.7 % (0.0-2.0); Hematocrit 34.7 % (36.0-46.0); Hemoglobin 10.9 g/dL (12.2-16.2); Lymphocytes # (auto) 0.9 10 ^3/uL (0.4-5.4); Lymphocytes % (auto) 13.6 % (10.0-50.0); Mean Corpuscular Hemoglobin 23.3 pg (28.0-32.0); Mean Corpuscular Hgb Conc. 31.5 g/dL (32.0-36.0); Mean Corpuscular Volume 73.8 fL (80.0-100.0); Monocytes # (auto) 0.6 10 ^3/uL (0-1.3); Monocytes % (auto) 9.5 % (0.0-12.0); Neutrophils % (auto) 74.9 % (37.0-80.0); Nucleated Red Blood Cells % 0.1 %; Red Blood Cells 4.69 10^6/uL (4.0-5.20); Red Cell Distribution Width 18.5 % (11.8-14.3); White Blood Cell 6.7 10^3/uL (4.4-10.8)
[2022-05-20 12:09] LABS: Albumin 3.5 g/dL (3.4-5.0); Calcium 9.2 mg/dL (8.5-10.1); Magnesium 2.2 mg/dL (1.6-2.6); Potassium 3.8 mmol/L (3.5-5.1)
[2022-05-20 12:14] LABS: BUN/Creatinine Ratio 16.5; Total Protein 6.3 g/dL (6.4-8.2)
== END | disposition home or self-care (01) ==
LOC: CHF HDHVI 10:45
PROVIDERS: ATTEND Internal Medicine Cardiovascular Disease
DX: I27.21 Secondary pulmonary arterial hypertension (principal); I10 Essential (primary) hypertension; R06.02 Shortness of breath; D64.9 Anemia, unspecified; R53.83 Other fatigue
CPT/HCPCS: 36415; 80053; 83735; 85025; 96372; G0463; J3420

== ENCOUNTER 2022-06-25 10:15 | Inpatient (IN) | payer MEDICARE, MEDICAID ==
[~2022-06-25] VITALS: Ht 157.5 cm; Wt 64.8 kg
[~2022-06-25 10:15] MED LIST changes: -CYANOCOBALAMIN (B-12) 1000 MCG/1 ML VIAL IM ONE; -CYANOCOBALAMIN (B-12) 1000 MCG/1 ML VIAL ONE
[2022-06-25 10:57] LABS: Mean Corpuscular Hemoglobin 23.3 pg (28.0-32.0); White Blood Cell 5.8 10^3/uL (4.4-10.8)
[2022-06-25 10:59] LABS: Hematocrit 33.6 % (36.0-46.0); Hemoglobin 10.6 g/dL (12.2-16.2); Mean Corpuscular Hgb Conc. 31.5 g/dL (32.0-36.0); Mean Corpuscular Volume 74.2 fL (80.0-100.0); Red Blood Cells 4.53 10^6/uL (4.0-5.20); Red Cell Distribution Width 18.5 % (11.8-14.3)
[2022-06-25 11:06] LABS: Basophils % (manual) 0 (0.0-2.0); Myelocytes % 0; Promyelocytes % 0; Reactive Lymphocytes 0
[2022-06-25 11:37] LABS: Albumin 3.3 g/dL (3.4-5.0); Calcium 8.7 mg/dL (8.5-10.1); Magnesium 1.9 mg/dL (1.6-2.6); Potassium 3.5 mmol/L (3.5-5.1)
[2022-06-25 11:40] LABS: Total Protein 6.4 g/dL (6.4-8.2)
[2022-06-25 12:12] LABS: Band Neutrophils % (manual) 1; Blast Cells 1; Eosinophils % (manual) 3 (0-7); Lymphocytes % (manual) 17 (10.0-50.0); Metamyelocytes % 1; Monocytes % (manual) 6 (0-12)
[2022-06-25] MEDS ORDERED: ALBUTEROL SULF 2.5 MG/0.5ML(0.5%) NEB SOLN NEB ONE (15:15)
[2022-06-25] MEDS ORDERED: DexAMETHasone SOD PHOS 10MG/1ML VIAL INJ IV ONE (15:15)
[2022-06-25] MEDS ORDERED: cefTRIAXone 1GM/50ML D5W 50 ML IV ONE (15:15)
[2022-06-25] MEDS ORDERED: IPRATROPIUM BROM 0.5 MG/2.5ML INH SOL NEB ONE (15:15)
[2022-06-25] MEDS ORDERED: ALBUTEROL SULF 2.5 MG/0.5ML(0.5%) NEB SOLN ONE (15:29)
[2022-06-25] MEDS ORDERED: ALBUTEROL MEDNEB 2.5 mg/3ml NEB ONE (15:36)
[2022-06-25] MEDS ORDERED: AZITHROMYCIN 500MG/ 250ML 250 ML IV ONE (15:45)
[2022-06-25] MEDS ORDERED: NITROGLYCERIN 0.4 MG SL TAB SL PRN (18:15)
[2022-06-25] MEDS ORDERED: ACETAMINOPHEN 325 MG TAB PO PRN (18:15)
[2022-06-25] MEDS ORDERED: ALBUTEROL SULF 2.5 MG/0.5ML(0.5%) NEB SOLN NEB PRN (18:15)
[2022-06-25] MEDS ORDERED: MORPHINE SULFATE INJ 2 MG/ml SYRG IV PRN (18:15)
[2022-06-25] MEDS ORDERED: ONDANSETRON HCL 4 MG/2 ML VIAL IV PRN (18:15)
[2022-06-25] MEDS ORDERED: DOCUSATE SOD 100 MG CAP PO PRN (18:15)
[2022-06-25] MEDS ORDERED: IPRATROPIUM BROM 0.5 MG/2.5ML INH SOL NEB PRN (18:15)
[2022-06-25] MEDS ORDERED: HYDROcodone-ACET 5/325MG TAB PO PRN (18:15)
[2022-06-25] MEDS ORDERED: RIVA2.5T PO (18:35)
[2022-06-25] MEDS ORDERED: RIOC1TAB15 PO (18:35)
[2022-06-25] MEDS ORDERED: FUROSEMIDE 40 MG/4 ML VIAL IV ONE (18:45)
[2022-06-25 20:17] VITALS: BP 100/47
[2022-06-25] MEDS: methylPREDNISolone SOD SUCC 40 MG/ML VL IV SCH (22:00)
[2022-06-25] MEDS: SODIUM CHLOR 0.9% PF (SALINE LOCK) 10ML VIAL/SYR IV SCH (22:00)
[2022-06-26 05:36] VITALS: BP 113/65
[2022-06-26 06:11] LABS: Basophils # (auto) 0 10 ^3/uL (0-0.2); Eosinophils # (auto) 0 10 ^3/uL (0-0.8); Lymphocytes # (auto) 0.4 10 ^3/uL (0.4-5.4); Monocytes # (auto) 0 10 ^3/uL (0-1.3); Monocytes % (auto) 0.9 % (0.0-12.0); Neutrophils # (auto) 4.3 10 ^3/uL (1.6-8.6)
[2022-06-26 06:13] LABS: Basophils % (auto) 0.3 % (0.0-2.0); Hematocrit 34.1 % (36.0-46.0); Lymphocytes % (auto) 7.8 % (10.0-50.0); Mean Corpuscular Hemoglobin 23.5 pg (28.0-32.0); Mean Corpuscular Hgb Conc. 32.1 g/dL (32.0-36.0); Mean Corpuscular Volume 73.2 fL (80.0-100.0); Nucleated Red Blood Cells % 0.2 %; Red Blood Cells 4.66 10^6/uL (4.0-5.20); Red Cell Distribution Width 18.7 % (11.8-14.3); White Blood Cell 4.7 10^3/uL (4.4-10.8)
[2022-06-26 06:28] LABS: Albumin 3.4 g/dL (3.4-5.0); Calcium 9.2 mg/dL (8.5-10.1); Potassium 3.8 mmol/L (3.5-5.1)
[2022-06-26] MEDS: SODIUM CHLOR 0.9% PF (SALINE LOCK) 10ML VIAL/SYR IV SCH ×3 (06:28→21:42)
[2022-06-26] MEDS ORDERED: PNEUMOCOCCAL VACC POLYS 25 MCG/0.5 ML VIAL IM ONE (06:30)
[2022-06-26 06:31] LABS: BUN/Creatinine Ratio 9.9; Bilirubin, Total 1.7 mg/dL (0.2-1.0); Total Protein 6.9 g/dL (6.4-8.2)
[2022-06-26 09:00] VITALS: BP 104/48
[2022-06-26] MEDS ORDERED: Riociguat Base (Adempas) 2.5 MG PO SCH (10:00)
[2022-06-26] MEDS ORDERED: cefTRIAXone 1GM/50ML D5W 50 ML IV ONE (10:00)
[2022-06-26] MEDS ORDERED: TIOTROPIUM BROMIDE MONOHYDRATE IN SCH (10:00)
[2022-06-26] MEDS: METOPROLOL SUCCINATE XL 50 MG TAB PO SCH (10:00)
[2022-06-26] MEDS ORDERED: ATORVASTATIN 20 MG TAB PO SCH (10:00)
[2022-06-26] MEDS: methylPREDNISolone SOD SUCC 40 MG/ML VL IV SCH ×2 (11:19→21:42)
[2022-06-26] MEDS: AZITHROMYCIN 250 MG TAB PO SCH (11:19)
[2022-06-26] MEDS: PANTOPRAZOLE 40 MG/10 ML VIAL INJ IV SCH (11:19)
[2022-06-26] MEDS: CALCITRIOL 0.25 MCG CAP PO SCH (11:19)
[2022-06-26] MEDS: FUROSEMIDE 40 MG TAB PO SCH (11:20)
[2022-06-26] MEDS: RIVAROXABAN 10 MG TAB PO SCH (11:20)
[2022-06-26 13:00] VITALS: BP 108/64
[2022-06-26] MEDS ORDERED: SUCR1TAB22 OR (16:38)
[2022-06-26] MEDS ORDERED: LINA145C OR (16:38)
[2022-06-26] MEDS ORDERED: ALPR0.25 PO (16:40)
[2022-06-26 17:00] VITALS: BP 95/42
[2022-06-26 20:00] VITALS: BP 104/69
[2022-06-26] MEDS: ATORVASTATIN 20 MG TAB PO SCH (21:42)
[2022-06-26] MEDS: RIOCIGUAT BASE 2.5 MG PO SCH (21:51)
[2022-06-26 22:00] VITALS: BP 100/59
[2022-06-27] MEDS: RIOCIGUAT BASE 2.5 MG PO SCH ×3 (06:20→21:42)
[2022-06-27] MEDS: SODIUM CHLOR 0.9% PF (SALINE LOCK) 10ML VIAL/SYR IV SCH ×3 (06:20→21:42)
[2022-06-27 07:34] LABS: BUN/Creatinine Ratio 12.9; Calcium 9.5 mg/dL (8.5-10.1); Potassium 3.5 mmol/L (3.5-5.1)
[2022-06-27 08:00] VITALS: BP 107/69
[2022-06-27 09:00] VITALS: BP 85/36
[2022-06-27] MEDS: PANTOPRAZOLE 40 MG/10 ML VIAL INJ IV SCH (09:06)
[2022-06-27] MEDS: RIVAROXABAN 10 MG TAB PO SCH (09:07)
[2022-06-27] MEDS: methylPREDNISolone SOD SUCC 40 MG/ML VL IV SCH ×2 (09:07→21:42)
[2022-06-27] MEDS: AZITHROMYCIN 250 MG TAB PO SCH (09:08)
[2022-06-27] MEDS: FUROSEMIDE 40 MG TAB PO SCH (09:13)
[2022-06-27] MEDS: METOPROLOL SUCCINATE XL 50 MG TAB PO SCH (09:14)
[2022-06-27] MEDS: CALCITRIOL 0.25 MCG CAP PO SCH (09:15)
[2022-06-27] MEDS: cefTRIAXone 1GM/50ML D5W 50 ML IV SCH (09:18)
[2022-06-27 12:59] VITALS: BP 94/49
[2022-06-27 16:14] LABS: Urine Bacteria FEW /hpf (None Seen); Urine Blood Negative /uL (Negative); Urine Hyaline Cast FEW /lpf (0 - 2); Urine Mucus FEW (None Seen); Urine Specific Gravity 1.011 (1.001-1.035); Urine WBC 1 /hpf (0 - 5)
[2022-06-27 17:00] VITALS: BP 102/49
[2022-06-27 20:00] VITALS: BP 102/62
[2022-06-27] MEDS: ATORVASTATIN 20 MG TAB PO SCH (21:43)
[2022-06-27 22:00] VITALS: BP 102/52
[2022-06-28 05:00] VITALS: BP 97/39
[2022-06-28] MEDS: RIOCIGUAT BASE 2.5 MG PO SCH ×3 (06:11→22:00)
[2022-06-28] MEDS: SODIUM CHLOR 0.9% PF (SALINE LOCK) 10ML VIAL/SYR IV SCH ×3 (06:11→22:00)
[2022-06-28 08:35] LABS: Free T4 (Free Thyroxine) 1.25 ng/dL (0.89-1.76)
[2022-06-28 08:36] LABS: Free T3 2.11 pg/mL (2.3-4.2)
[2022-06-28 08:42] VITALS: BP 84/42
[2022-06-28] MEDS: PANTOPRAZOLE 40 MG/10 ML VIAL INJ IV SCH (09:53)
[2022-06-28] MEDS: cefTRIAXone 1GM/50ML D5W 50 ML IV SCH (09:53)
[2022-06-28] MEDS: methylPREDNISolone SOD SUCC 40 MG/ML VL IV SCH ×2 (09:53→21:59)
[2022-06-28] MEDS: RIVAROXABAN 10 MG TAB PO SCH (09:54)
[2022-06-28] MEDS: CALCITRIOL 0.25 MCG CAP PO SCH (09:54)
[2022-06-28] MEDS: AZITHROMYCIN 250 MG TAB PO SCH (09:54)
[2022-06-28] MEDS: FUROSEMIDE 40 MG TAB PO SCH (10:00)
[2022-06-28] MEDS: METOPROLOL SUCCINATE XL 50 MG TAB PO SCH (10:00)
[2022-06-28 12:24] VITALS: BP 92/44
[2022-06-28 16:21] VITALS: BP 98/48
[2022-06-28 20:00] VITALS: BP 97/58
[2022-06-28 22:00] VITALS: BP 97/58
[2022-06-28] MEDS: ATORVASTATIN 20 MG TAB PO SCH (22:00)
[2022-06-29 05:00] VITALS: BP 98/49
[2022-06-29] MEDS: SODIUM CHLOR 0.9% PF (SALINE LOCK) 10ML VIAL/SYR IV SCH ×3 (05:51→20:52)
[2022-06-29] MEDS ORDERED: RIOCIGUAT BASE 2.5 MG PO SCH (08:00)
[2022-06-29 08:30] VITALS: BP 92/42
[2022-06-29] MEDS: METOPROLOL SUCCINATE XL 50 MG TAB PO SCH (10:00)
[2022-06-29] MEDS: PANTOPRAZOLE 40 MG/10 ML VIAL INJ IV SCH (10:05)
[2022-06-29] MEDS: CALCITRIOL 0.25 MCG CAP PO SCH (10:05)
[2022-06-29] MEDS: methylPREDNISolone SOD SUCC 40 MG/ML VL IV SCH (10:05)
[2022-06-29] MEDS: cefTRIAXone 1GM/50ML D5W 50 ML IV SCH (10:05)
[2022-06-29] MEDS: AZITHROMYCIN 250 MG TAB PO SCH (10:06)
[2022-06-29] MEDS: RIVAROXABAN 10 MG TAB PO SCH (10:06)
[2022-06-29] MEDS: FUROSEMIDE 40 MG TAB PO SCH (11:14)
[2022-06-29 12:30] VITALS: BP 111/41
[2022-06-29 16:23] VITALS: BP 107/43
[2022-06-29 20:00] VITALS: BP 94/51
[2022-06-29] MEDS: ATORVASTATIN 20 MG TAB PO SCH (21:26)
[2022-06-29 22:38] VITALS: BP 94/41
[2022-06-30 05:15] VITALS: BP 98/46
[2022-06-30] MEDS: SODIUM CHLOR 0.9% PF (SALINE LOCK) 10ML VIAL/SYR IV SCH ×2 (07:18→13:40)
[2022-06-30 08:00] VITALS: BP 94/51
[2022-06-30 08:30] VITALS: BP 91/45
[2022-06-30] MEDS ORDERED: AZIT250T9 PO (09:47)
[2022-06-30] MEDS ORDERED: PRED10TA PO (09:47)
[2022-06-30] MEDS ORDERED: PRED20TA2 PO (09:47)
[2022-06-30] MEDS ORDERED: predniSONE 20 MG TAB PO SCH (10:00)
[2022-06-30] MEDS: METOPROLOL SUCCINATE XL 50 MG TAB PO SCH (10:00)
[2022-06-30 10:20] LABS: Basophils # (auto) 0 10 ^3/uL (0-0.2); Basophils % (auto) 0.5 % (0.0-2.0); Eosinophils # (auto) 0 10 ^3/uL (0-0.8); Eosinophils % (auto) 0.5 % (0.0-7.0); Hematocrit 33.2 % (36.0-46.0); Hemoglobin 10.6 g/dL (12.2-16.2); Lymphocytes # (auto) 1.2 10 ^3/uL (0.4-5.4); Lymphocytes % (auto) 15.8 % (10.0-50.0); Mean Corpuscular Hemoglobin 23.5 pg (28.0-32.0); Mean Corpuscular Hgb Conc. 31.9 g/dL (32.0-36.0); Mean Corpuscular Volume 73.7 fL (80.0-100.0); Monocytes # (auto) 0.7 10 ^3/uL (0-1.3); Monocytes % (auto) 9.6 % (0.0-12.0); Neutrophils # (auto) 5.4 10 ^3/uL (1.6-8.6); Neutrophils % (auto) 73.6 % (37.0-80.0); Nucleated Red Blood Cells % 0.1 %; Red Cell Distribution Width 17.8 % (11.8-14.3); White Blood Cell 7.3 10^3/uL (4.4-10.8)
[2022-06-30] MEDS: cefTRIAXone 1GM/50ML D5W 50 ML IV SCH (10:24)
[2022-06-30] MEDS: PANTOPRAZOLE 40 MG/10 ML VIAL INJ IV SCH (10:26)
[2022-06-30] MEDS: AZITHROMYCIN 250 MG TAB PO SCH (10:28)
[2022-06-30] MEDS: CALCITRIOL 0.25 MCG CAP PO SCH (10:29)
[2022-06-30] MEDS: RIVAROXABAN 10 MG TAB PO SCH (10:30)
[2022-06-30] MEDS: FUROSEMIDE 40 MG TAB PO SCH (10:49)
[2022-06-30 11:03] LABS: Potassium 3.6 mmol/L (3.5-5.1)
[2022-06-30 12:30] VITALS: BP 94/39
[2022-06-30 16:56] VITALS: BP 107/45
[2022-06-30 17:00] VITALS: BP 130/55
[2022-06-30] MEDS ORDERED: PNEUMOCOCCAL VACC POLYS 25 MCG/0.5 ML VIAL IM ONE (17:30)
== END 2022-06-30 19:08 | disposition home health service (06) | DRG 177 ==
LOC: ER 10:15 → TELE 18:01 → TELE-CENTR 22:44
PROVIDERS: ADMIT Nurse Practitioner Family; ATTEND Internal Medicine
DX: J15.6 Pneumonia due to other Gram-negative bacteria (principal); J96.21 Acute and chronic respiratory failure with hypoxia; J44.1 Chronic obstructive pulmonary disease with (acute) exacerbation; I13.0 Hypertensive heart and chronic kidney disease with heart failure and stage 1 through stage 4 chronic kidney disease, or unspecified chronic kidney disease; D68.69 Other thrombophilia; J44.0 Chronic obstructive pulmonary disease with (acute) lower respiratory infection; R64 Cachexia; J84.10 Pulmonary fibrosis, unspecified; I27.20 Pulmonary hypertension, unspecified; I48.91 Unspecified atrial fibrillation; N18.30 Chronic kidney disease, stage 3 unspecified; D64.9 Anemia, unspecified; E11.22 Type 2 diabetes mellitus with diabetic chronic kidney disease; I50.9 Heart failure, unspecified; J98.4 Other disorders of lung; Z82.49 Family history of ischemic heart disease and other diseases of the circulatory system; Z83.3 Family history of diabetes mellitus; Z90.710 Acquired absence of both cervix and uterus; Z68.26 Body mass index [BMI] 26.0-26.9, adult; Z90.49 Acquired absence of other specified parts of digestive tract
CPT/HCPCS: 36415; 71045; 80048; 80053; 81001; 83735; 83880; 84439; 84443; 84481; 84484; 85007; 85025; 85027; 87426; 87804; 93005; 94640; 96365; 96375; C9113; G0378; J0696; J1100

== ENCOUNTER → 2022-07-15 | Outpatient (CLI) | payer MEDICARE, MEDICAID ==
[~2022-07-15] MED LIST changes: +ALPR0.25 PO; +AZIT250T9 PO; +LINA145C OR; +PRED10TA PO; +PRED20TA2 PO; -RIOC1TAB14 PO; +RIOC1TAB15 PO; -RIVA10TA PO; +RIVA2.5T PO; +SUCR1TAB22 OR
== END | disposition home or self-care (01) ==
LOC: Rad HDHVI 12:38
PROVIDERS: ATTEND Internal Medicine Cardiovascular Disease
DX: I34.0 Nonrheumatic mitral (valve) insufficiency (principal); R00.2 Palpitations; R06.02 Shortness of breath
CPT/HCPCS: 93306

== ENCOUNTER → 2022-09-30 | Outpatient (CLI) | payer MEDICARE, MEDICAID ==
[~2022-09-30] VITALS: Ht 152.4 cm; Wt 54.4 kg
[~2022-09-30] MED LIST changes: +AZIT-43 PO; -AZIT250T9 PO; +CYANOCOBALAMIN (B-12) 1000 MCG/1 ML VIAL IM ONE; +CYANOCOBALAMIN (B-12) 1000 MCG/1 ML VIAL ONE
[2022-09-30 11:22] VITALS: BP 99/43
[2022-09-30 11:57] VITALS: BP 98/43
== END | disposition home or self-care (01) ==
LOC: CHF HDHVI 10:50
PROVIDERS: ATTEND Internal Medicine Cardiovascular Disease
DX: I27.21 Secondary pulmonary arterial hypertension (principal); D64.9 Anemia, unspecified; I13.0 Hypertensive heart and chronic kidney disease with heart failure and stage 1 through stage 4 chronic kidney disease, or unspecified chronic kidney disease; E11.22 Type 2 diabetes mellitus with diabetic chronic kidney disease; I50.9 Heart failure, unspecified; N18.30 Chronic kidney disease, stage 3 unspecified; J44.9 Chronic obstructive pulmonary disease, unspecified; J96.10 Chronic respiratory failure, unspecified whether with hypoxia or hypercapnia; Z90.49 Acquired absence of other specified parts of digestive tract; Z90.710 Acquired absence of both cervix and uterus
CPT/HCPCS: 96372; G0463; J3420

== ENCOUNTER → 2022-11-17 | Outpatient (CLI) | payer MEDICARE, MEDICAID ==
[2022-11-17 11:10] VITALS: BP 111/44; PULSE 74; RESP 18; O2SAT 94
[2022-11-17 11:40] VITALS: BP 100/53; PULSE 70; RESP 20; O2SAT 94
== END | disposition home or self-care (01) ==
LOC: CHF HDHVI 11:08
PROVIDERS: ATTEND Internal Medicine Cardiovascular Disease
DX: I27.21 Secondary pulmonary arterial hypertension (principal); D64.9 Anemia, unspecified; I13.0 Hypertensive heart and chronic kidney disease with heart failure and stage 1 through stage 4 chronic kidney disease, or unspecified chronic kidney disease; E11.22 Type 2 diabetes mellitus with diabetic chronic kidney disease; N18.30 Chronic kidney disease, stage 3 unspecified; I50.9 Heart failure, unspecified; J44.9 Chronic obstructive pulmonary disease, unspecified; J96.11 Chronic respiratory failure with hypoxia; Z90.710 Acquired absence of both cervix and uterus; Z90.49 Acquired absence of other specified parts of digestive tract
CPT/HCPCS: 96372; G0463; J3420

== ENCOUNTER → 2022-11-18 | Outpatient (CLI) | payer MEDICARE, MEDICAID ==
[~2022-11-18] VITALS: Ht 157.5 cm; Wt 57.6 kg
[~2022-11-18] MED LIST changes: -CYANOCOBALAMIN (B-12) 1000 MCG/1 ML VIAL IM ONE; -CYANOCOBALAMIN (B-12) 1000 MCG/1 ML VIAL ONE
== END | disposition home or self-care (01) ==
LOC: Rad HDHVI 12:48
PROVIDERS: ATTEND Internal Medicine Cardiovascular Disease
DX: I11.0 Hypertensive heart disease with heart failure (principal); I50.9 Heart failure, unspecified; I27.21 Secondary pulmonary arterial hypertension; R09.02 Hypoxemia; J84.10 Pulmonary fibrosis, unspecified
CPT/HCPCS: 78472; 96374; 96375; A9505

== ENCOUNTER → 2022-12-16 | Outpatient (CLI) | payer MEDICARE, MEDICAID ==
[~2022-12-16] MED LIST changes: +CYANOCOBALAMIN (B-12) 1000 MCG/1 ML VIAL IM ONE; +CYANOCOBALAMIN (B-12) 1000 MCG/1 ML VIAL ONE
[2022-12-16 11:00] VITALS: BP 97/38; PULSE 59; RESP 18; O2SAT 100
[2022-12-16 11:42] VITALS: BP 98/42; PULSE 59; RESP 18; O2SAT 100
== END | disposition home or self-care (01) ==
LOC: CHF HDHVI 10:59
PROVIDERS: ATTEND Internal Medicine Cardiovascular Disease
DX: I27.21 Secondary pulmonary arterial hypertension (principal); D64.9 Anemia, unspecified; I13.0 Hypertensive heart and chronic kidney disease with heart failure and stage 1 through stage 4 chronic kidney disease, or unspecified chronic kidney disease; E11.22 Type 2 diabetes mellitus with diabetic chronic kidney disease; N18.30 Chronic kidney disease, stage 3 unspecified; I50.9 Heart failure, unspecified; J44.9 Chronic obstructive pulmonary disease, unspecified; J96.11 Chronic respiratory failure with hypoxia; Z90.710 Acquired absence of both cervix and uterus; Z90.49 Acquired absence of other specified parts of digestive tract
CPT/HCPCS: 96372; G0463; J3420

== ENCOUNTER → 2023-01-13 | Outpatient (CLI) | payer MEDICARE, MEDICAID ==
[2023-01-13 11:20] VITALS: BP 111/53; PULSE 54; RESP 20; O2SAT 96
[2023-01-13 12:12] VITALS: BP 110/56; PULSE 51; RESP 20; O2SAT 96
== END | disposition home or self-care (01) ==
LOC: CHF HDHVI 11:06
PROVIDERS: ATTEND Internal Medicine Cardiovascular Disease
DX: I27.21 Secondary pulmonary arterial hypertension (principal); D64.9 Anemia, unspecified; I13.0 Hypertensive heart and chronic kidney disease with heart failure and stage 1 through stage 4 chronic kidney disease, or unspecified chronic kidney disease; E11.22 Type 2 diabetes mellitus with diabetic chronic kidney disease; N18.30 Chronic kidney disease, stage 3 unspecified; I50.9 Heart failure, unspecified; J84.10 Pulmonary fibrosis, unspecified; J44.9 Chronic obstructive pulmonary disease, unspecified; J96.11 Chronic respiratory failure with hypoxia; Z90.49 Acquired absence of other specified parts of digestive tract; Z90.710 Acquired absence of both cervix and uterus
CPT/HCPCS: 93005; 96372; G0463; J3420

== ENCOUNTER → 2023-02-07 | Outpatient (CLI) | payer MEDICARE, MEDICAID ==
[~2023-02-07] MED LIST changes: +CEPH500C PO; -CYANOCOBALAMIN (B-12) 1000 MCG/1 ML VIAL IM ONE; -CYANOCOBALAMIN (B-12) 1000 MCG/1 ML VIAL ONE; -LINA145C OR; +LINA145C PO
[2023-02-07 12:08] VITALS: BP 102/54; PULSE 72; RESP 18; O2SAT 96
[2023-02-07 12:28] VITALS: BP 99/54; PULSE 59; RESP 18; O2SAT 96
== END | disposition home or self-care (01) ==
LOC: CHF HDHVI 11:38
PROVIDERS: ATTEND Internal Medicine Cardiovascular Disease
DX: Z01.818 Encounter for other preprocedural examination (principal); I49.5 Sick sinus syndrome; R09.89 Other specified symptoms and signs involving the circulatory and respiratory systems; R00.2 Palpitations; I10 Essential (primary) hypertension
CPT/HCPCS: 93005; G0463

== ENCOUNTER 2023-02-10 07:41 | Day surgery (SDC) | payer MEDICARE, MEDICAID ==
[2023-02-07 15:35] LABS: Basophils # (auto) 0.1 10 ^3/uL (0-0.2); Basophils % (auto) 1.3 % (0.0-2.0); Eosinophils # (auto) 0.1 10 ^3/uL (0-0.8); Eosinophils % (auto) 2.5 % (0.0-7.0); Hematocrit 31.6 % (36.0-46.0); Lymphocytes # (auto) 1.2 10 ^3/uL (0.4-5.4); Lymphocytes % (auto) 19.9 % (10.0-50.0); Mean Corpuscular Hemoglobin 24.7 pg (28.0-32.0); Mean Corpuscular Hgb Conc. 31.7 g/dL (32.0-36.0); Monocytes # (auto) 0.6 10 ^3/uL (0-1.3); Monocytes % (auto) 10.7 % (0.0-12.0); Neutrophils # (auto) 3.8 10 ^3/uL (1.6-8.6); Neutrophils % (auto) 65.6 % (37.0-80.0); Red Blood Cells 4.06 10^6/uL (4.0-5.20); Red Cell Distribution Width 19.4 % (11.8-14.3); White Blood Cell 5.8 10^3/uL (4.4-10.8)
[2023-02-07 15:45] LABS: Chloride 104 mmol/L (98-107); Potassium 3.2 mmol/L (3.5-5.1); Sodium 141 mmol/L (136-145)
[2023-02-07 15:46] LABS: Anion Gap 5 (5-15); Calcium 9.4 mg/dL (8.7-10.4); Carbon Dioxide 32 mmol/L (20-30)
[2023-02-07 15:51] LABS: BUN/Creatinine Ratio 7.7 (10.0-20.0); Blood Urea Nitrogen 12 mg/dL (9-23); Glucose 90 mg/dL (74-106)
[2023-02-07 15:55] LABS: INR 1.06 (0.9-1.15); Partial Thromboplastin Time 28.7 SEC (24.5-34.5); Prothrombin Time 11.1 sec (9.3-11.8)
[~2023-02-10] VITALS: Ht 157.5 cm; Wt 54.9 kg
[~2023-02-10 07:41] MED LIST changes: -ALPR0.25 PO; -AZIT-43 PO; -CEPH500C PO; -PANT40TA2 PO; -PRED10TA PO; -PRED20TA2 PO; -SUCR1TAB22 OR
[2023-02-10] MEDS ORDERED: VANCOMYCIN 1GM/250ML 250 ML IV ONE (08:15)
[2023-02-10] MEDS ORDERED: LIDOCAINE 2%HCL (LOCAL ANESTH.) INJ 20ML MDV ONE (10:17)
[2023-02-10] MEDS ORDERED: fentaNYL CITRATE 100 MCG/2 ML VL ONE (10:21)
[2023-02-10] MEDS ORDERED: MIDAZOLAM HCL 2MG/2ML 2ml VIAL (1mg/ml) ONE (10:21)
[2023-02-10] MEDS ORDERED: VANCOMYCIN HCL 1000 MG VL ONE (10:25)
[2023-02-10] MEDS ORDERED: CEPH500C PO (13:23)
== END 2023-02-10 14:35 | disposition home or self-care (01) ==
LOC: CATH 07:41
PROVIDERS: ATTEND Internal Medicine Cardiovascular Disease
DX: I49.5 Sick sinus syndrome (principal); R55 Syncope and collapse; I44.30 Unspecified atrioventricular block; I48.0 Paroxysmal atrial fibrillation; I27.20 Pulmonary hypertension, unspecified; I10 Essential (primary) hypertension; E78.5 Hyperlipidemia, unspecified; J44.9 Chronic obstructive pulmonary disease, unspecified; Z87.891 Personal history of nicotine dependence; Z79.899 Other long term (current) drug therapy
CPT/HCPCS: 33208; 36415; 71045; 80048; 85025; 85610; 85730; C1785; C1898; J2250; J3010; J3370; 99152

== ENCOUNTER → 2023-02-21 | Outpatient (CLI) | payer MEDICARE, MEDICAID ==
[~2023-02-21] MED LIST changes: +CEPH500C PO
== END | disposition home or self-care (01) ==
LOC: Rad HDHVI 12:59
PROVIDERS: ATTEND Internal Medicine Cardiovascular Disease
DX: I08.8 Other rheumatic multiple valve diseases (principal); I10 Essential (primary) hypertension; R00.2 Palpitations; I27.20 Pulmonary hypertension, unspecified
CPT/HCPCS: 93306

== ENCOUNTER → 2023-04-20 | Outpatient (CLI) | payer MEDICARE, MEDICAID ==
[~2023-04-20] MED LIST changes: +ALBU108A5 IN; +IOHEXOL 350 MG/ML 100ML IJ ONE; +MYCO250C PO; +POM; +RIOC1TAB13 PO; +RIOC1TAB14 PO; +ZOLP10TA PO
[2023-04-20 09:05] VITALS: BP 122/58; PULSE 61; RESP 18; O2SAT 94
[2023-04-20 09:27] VITALS: BP 116/57; PULSE 65; RESP 18; O2SAT 94
== END | disposition home or self-care (01) ==
LOC: CHF HDHVI 08:56
PROVIDERS: ATTEND Internal Medicine Cardiovascular Disease
DX: Z01.818 Encounter for other preprocedural examination (principal); I27.21 Secondary pulmonary arterial hypertension; R06.02 Shortness of breath; R07.9 Chest pain, unspecified; I10 Essential (primary) hypertension; I49.1 Atrial premature depolarization; R94.31 Abnormal electrocardiogram [ECG] [EKG]
CPT/HCPCS: 36415; 80048; 85025; 85610; 85730; 93005; G0463

== ENCOUNTER 2023-04-21 07:53 | Day surgery (SDC) | payer MEDICARE, MEDICAID ==
[2023-04-20 10:24] LABS: Eosinophils # (auto) 0.2 10 ^3/uL (0-0.8); Hemoglobin 9.5 g/dL (12.2-16.2); Mean Corpuscular Hgb Conc. 30.6 g/dL (32.0-36.0); Monocytes # (auto) 0.7 10 ^3/uL (0-1.3); Neutrophils # (auto) 5.5 10 ^3/uL (1.6-8.6); White Blood Cell 7.4 10^3/uL (4.4-10.8)
[2023-04-20 10:25] LABS: Basophils # (auto) 0 10 ^3/uL (0-0.2); Basophils % (auto) 0.5 % (0.0-2.0); Eosinophils % (auto) 2.2 % (0.0-7.0); Hematocrit 30.9 % (36.0-46.0); Lymphocytes # (auto) 0.9 10 ^3/uL (0.4-5.4); Lymphocytes % (auto) 12.8 % (10.0-50.0); Mean Corpuscular Hemoglobin 23.2 pg (28.0-32.0); Mean Corpuscular Volume 75.9 fL (80.0-100.0); Monocytes % (auto) 9.8 % (0.0-12.0); Neutrophils % (auto) 74.7 % (37.0-80.0); Red Blood Cells 4.07 10^6/uL (4.0-5.20); Red Cell Distribution Width 18.1 % (11.8-14.3)
[2023-04-20 10:37] LABS: Chloride 106 mmol/L (98-107); Potassium 3.2 mmol/L (3.5-5.1); Sodium 143 mmol/L (136-145)
[2023-04-20 10:38] LABS: Anion Gap 10 (5-15); Carbon Dioxide 27 mmol/L (20-30); INR 1.02 (0.9-1.15); Partial Thromboplastin Time 27.4 SEC (24.5-34.5); Prothrombin Time 10.7 sec (9.3-11.8)
[2023-04-20 10:39] LABS: Calcium 8.6 mg/dL (8.5-10.1)
[2023-04-20 10:43] LABS: Glucose 86 mg/dL (74-106)
[2023-04-20 10:44] LABS: BUN/Creatinine Ratio 10.2 (10.0-20.0); Blood Urea Nitrogen 13 mg/dL (9-23)
[~2023-04-21] VITALS: Ht 157.5 cm; Wt 55.3 kg
[~2023-04-21 07:53] MED LIST changes: -ALBUAER3 IN; -CEPH500C PO; +HEPARIN IN NS 1000Units/500mL 0 ML ONE; +IODIXANOL 320MG/ML 100ML BTL IV ONE; +LIDOCAINE 2%HCL (LOCAL ANESTH.) INJ 20ML MDV ONE; -LINA145C PO; -RIOC1TAB14 PO; -RIOC1TAB15 PO; -TIOT1AER2 IN
[2023-04-21] MEDS ORDERED: ANGIOMAX 250 MG VIAL IV ONE (08:41)
[2023-04-21] MEDS ORDERED: LIDOCAINE 2%HCL (LOCAL ANESTH.) INJ 20ML MDV ONE (08:42)
[2023-04-21] MEDS ORDERED: SODIUM CHL 0.9% 0 ML ONE (08:42)
[2023-04-21] MEDS ORDERED: MIDAZOLAM HCL 2MG/2ML 2ml VIAL (1mg/ml) ONE (08:42)
[2023-04-21] MEDS ORDERED: fentaNYL CITRATE 100 MCG/2 ML VL ONE (08:42)
[2023-04-21] MEDS ORDERED: IOHEXOL 350 MG/ML 100ML IJ ONE ×2 (08:45→09:21)
== END 2023-04-21 11:53 | disposition home or self-care (01) ==
LOC: CATH 07:53
PROVIDERS: ATTEND Internal Medicine Cardiovascular Disease
DX: R94.39 Abnormal result of other cardiovascular function study (principal); I10 Essential (primary) hypertension; E78.5 Hyperlipidemia, unspecified; Z87.891 Personal history of nicotine dependence; J44.9 Chronic obstructive pulmonary disease, unspecified; J84.10 Pulmonary fibrosis, unspecified; Z79.899 Other long term (current) drug therapy
CPT/HCPCS: 36415; 80048; 85025; 85610; 85730; C1757; C1769; C1894; J1644; J2250; J3010; Q9967; 93460; 99152

== ENCOUNTER → 2023-09-06 | Outpatient (CLI) | payer MEDICARE, MEDICAID ==
[~2023-09-06] MED LIST changes: -HEPARIN IN NS 1000Units/500mL 0 ML ONE; -IODIXANOL 320MG/ML 100ML BTL IV ONE; -IOHEXOL 350 MG/ML 100ML IJ ONE; -LIDOCAINE 2%HCL (LOCAL ANESTH.) INJ 20ML MDV ONE
[2023-09-06 10:36] VITALS: BP 117/53; PULSE 71; RESP 18; O2SAT 92
[2023-09-06] MEDS: CYANOCOBALAMIN (B-12) 1000 MCG/1 ML VIAL IM ONE (10:36)
[2023-09-06] MEDS: CYANOCOBALAMIN (B-12) 1000 MCG/1 ML VIAL ONE (10:40)
[2023-09-06 11:00] VITALS: BP 116/64; PULSE 69; RESP 20; O2SAT 91
== END | disposition home or self-care (01) ==
LOC: CHF HDHVI 10:34
PROVIDERS: ATTEND Internal Medicine Cardiovascular Disease
DX: I27.21 Secondary pulmonary arterial hypertension (principal); R06.02 Shortness of breath; D64.9 Anemia, unspecified; I10 Essential (primary) hypertension
CPT/HCPCS: 96372; G0463; J3420

== ENCOUNTER → 2023-10-24 | Outpatient (CLI) | payer MEDICARE, MEDICAID ==
[~2023-10-24] MED LIST changes: +ATOR20TA50 PO; +AZIT-43 PO; +CARV-214 PO; +ERGO1CAP23 PO; +PANT40T PO
== END | disposition home or self-care (01) ==
LOC: Rad HDHVI 12:36
PROVIDERS: ATTEND Internal Medicine Cardiovascular Disease
DX: I08.8 Other rheumatic multiple valve diseases (principal); I10 Essential (primary) hypertension; E78.5 Hyperlipidemia, unspecified
CPT/HCPCS: 93306

== ENCOUNTER 2023-10-31 11:33 | Inpatient (IN) | payer MEDICARE, MEDICAID ==
[~2023-10-31] VITALS: Ht 157.5 cm; Wt 55.0 kg
[~2023-10-31 11:33] MED LIST changes: -ATOR20TA50 PO; -AZIT-43 PO; -CARV-214 PO; -ERGO1CAP23 PO; -PANT40T PO
[2023-10-31 12:07] LABS: Urine Bacteria None Seen /hpf (None Seen); Urine WBC None Seen /hpf (0 - 5)
[2023-10-31 12:11] LABS: Basophils # (auto) 0.1 10 ^3/uL (0-0.2); Eosinophils # (auto) 0.1 10 ^3/uL (0-0.8); Eosinophils % (auto) 2.1 % (0.0-7.0); Hematocrit 38.6 % (36.0-46.0); Lymphocytes # (auto) 1.1 10 ^3/uL (0.4-5.4); Mean Corpuscular Hemoglobin 29.5 pg (28.0-32.0); Mean Corpuscular Hgb Conc. 33.6 g/dL (32.0-36.0); Mean Corpuscular Volume 87.9 fL (80.0-100.0); Monocytes # (auto) 0.5 10 ^3/uL (0-1.3); Monocytes % (auto) 9.1 % (0.0-12.0); Neutrophils # (auto) 3.5 10 ^3/uL (1.6-8.6); Neutrophils % (auto) 66.8 % (37.0-80.0); Nucleated Red Blood Cells % 0.3 %; Red Blood Cells 4.39 10^6/uL (4.0-5.20); Red Cell Distribution Width 13.4 % (11.8-14.3); White Blood Cell 5.2 10^3/uL (4.4-10.8)
[2023-10-31 12:28] LABS: Urine Blood Negative /uL (Negative); Urine Budding Yeast OCCASIONAL /hpf (None Seen); Urine Clarity Clear (Clear); Urine Color Light-Yellow (Yellow); Urine Hyaline Cast FEW /lpf (0 - 2); Urine Protein, UAD Negative (Negative); Urine Specific Gravity 1.012 (1.001-1.035); Urine Urobilinogen Normal (Negative)
[2023-10-31 12:36] LABS: Alanine Aminotransferase 16 U/L (7-40); Albumin 3.8 g/dL (3.2-4.8); Alkaline Phosphatase 77 U/L (46-116); Anion Gap 9 (5-15); Aspartate Aminotransferase 14 U/L (13-40); Bilirubin, Total 0.6 mg/dL (0.2-1.0); Blood Urea Nitrogen 11 mg/dL (9-23); Calcium 9.5 mg/dL (8.7-10.4); Carbon Dioxide 24 mmol/L (20-30); Chloride 105 mmol/L (98-107); Glucose 93 mg/dL (74-106); Potassium 3.4 mmol/L (3.5-5.1); Sodium 138 mmol/L (136-145); Total Protein 6.2 g/dL (5.7-8.2)
[2023-10-31] MEDS ORDERED: ACETAMINOPHEN 325 MG TAB PO PRN (13:45)
[2023-10-31] MEDS ORDERED: ONDANSETRON HCL 4 MG/2 ML VIAL IV PRN (13:45)
[2023-10-31] MEDS ORDERED: HYDROcodone-ACET 5/325MG TAB PO PRN (13:45)
[2023-10-31] MEDS ORDERED: ALBUTEROL SULF 2.5 MG/0.5ML(0.5%) NEB SOLN NEB PRN (14:00)
[2023-10-31] MEDS: SODIUM CHLOR 0.9% PF (SALINE LOCK) 10ML VIAL/SYR IV SCH (15:00)
[2023-10-31] MEDS ORDERED: NITROGLYCERIN 0.4 MG SL TAB SL PRN (15:00)
[2023-10-31] MEDS ORDERED: MORPHINE SULFATE INJ 2 MG/ml SYRG IV PRN (15:00)
[2023-10-31] MEDS: POTASSIUM CHL 20 Meq TABLET PO ONE (15:02)
[2023-10-31 15:05] VITALS: RESP 18; O2SAT 3
[2023-10-31 19:11] VITALS: BP 101/49; PULSE 61; RESP 16; TEMP 98.1; O2SAT 99
[2023-10-31 20:39] VITALS: PULSE 70; RESP 18; O2SAT 98
[2023-10-31] MEDS: ATORVASTATIN 20 MG TAB PO SCH (22:00)
[2023-10-31 23:01] VITALS: BP 117/51; PULSE 62; RESP 16; TEMP 98.1; O2SAT 92
[2023-10-31 23:37] VITALS: O2SAT 91
[2023-11-01] VITALS (9 sets, daily range): BP systolic 101–114; BP diastolic 44–69; PULSE 60–97; RESP 17–18; TEMP 97.6–98.1; O2SAT 90–97
[2023-11-01] MEDS: CARVEDILOL 3.125 MG TAB PO SCH (00:07)
[2023-11-01 07:33] LABS: Alanine Aminotransferase 17 U/L (7-40); Albumin 3.5 g/dL (3.2-4.8); Alkaline Phosphatase 74 U/L (46-116); Anion Gap 11 (5-15); Aspartate Aminotransferase 12 U/L (13-40); BUN/Creatinine Ratio 13.2 (10.0-20.0); Bilirubin, Total 0.4 mg/dL (0.2-1.0); Blood Urea Nitrogen 15 mg/dL (9-23); Calcium 9.7 mg/dL (8.7-10.4); Carbon Dioxide 23 mmol/L (20-30); Chloride 106 mmol/L (98-107); Glucose 80 mg/dL (74-106); Potassium 3.8 mmol/L (3.5-5.1); Sodium 140 mmol/L (136-145); Total Protein 5.4 g/dL (5.7-8.2)
[2023-11-01 07:41] LABS: Basophils # (auto) 0 10 ^3/uL (0-0.2); Basophils % (auto) 0.9 % (0.0-2.0); Eosinophils # (auto) 0.2 10 ^3/uL (0-0.8); Eosinophils % (auto) 3.2 % (0.0-7.0); Hematocrit 37.8 % (36.0-46.0); Hemoglobin 12.8 g/dL (12.2-16.2); Lymphocytes % (auto) 19.5 % (10.0-50.0); Mean Corpuscular Hemoglobin 30.4 pg (28.0-32.0); Mean Corpuscular Hgb Conc. 33.8 g/dL (32.0-36.0); Mean Corpuscular Volume 89.9 fL (80.0-100.0); Monocytes # (auto) 0.6 10 ^3/uL (0-1.3); Neutrophils # (auto) 3.4 10 ^3/uL (1.6-8.6); Neutrophils % (auto) 64.4 % (37.0-80.0); Nucleated Red Blood Cells % 0.1 %; Red Cell Distribution Width 13.3 % (11.8-14.3); White Blood Cell 5.3 10^3/uL (4.4-10.8)
[2023-11-01] MEDS ORDERED: POTASSIUM EFFERVESENT TAB 25 MEQ GT ONE (07:45)
[2023-11-01] MEDS: RIVAROXABAN 15 MG TAB PO SCH (09:40)
[2023-11-01] MEDS: FUROSEMIDE 40 MG/4 ML VIAL IV SCH (09:41)
[2023-11-01] MEDS: DOCUSATE SOD 100 MG CAP PO PRN (09:52)
[2023-11-01] MEDS: ASPirin 81 mg TAB PO SCH (09:54)
[2023-11-01 09:59] LABS: COVID19 ANTIGEN SOFIA FIA NEGATIVE (NEGATIVE)
[2023-11-01] MEDS ORDERED: FUROSEMIDE 40 MG/4 ML VIAL IV SCH (10:00)
[2023-11-01 12:13] LABS: INR 1.16 (0.9-1.15); Partial Thromboplastin Time 33.9 SEC (24.5-34.5); Prothrombin Time 12.2 sec (9.3-11.8)
[2023-11-01] MEDS: POTASSIUM CHL 20 Meq TABLET PO ONE (12:30)
[2023-11-01] MEDS: PANTOPRAZOLE 40 MG TAB PO ONE (13:50)
[2023-11-01] MEDS: AZITHROMYCIN 250 MG TAB PO ONE (13:50)
[2023-11-01 18:49] LABS: Amphetamine Screen, Urine Neg (NEGATIVE); Barbiturate Scree,Urine Neg (NEGATIVE); Benzodiazephine Screen, Urine Neg (NEGATIVE); Cocaine Screen, Urine Neg (NEGATIVE); Opiate Scree,Urine Neg (NEGATIVE)
[2023-11-01 18:50] LABS: Cannabinoid Screen, Urine Neg (NEGATIVE); Phencyclidine Screen, Urine Neg (NEGATIVE)
[2023-11-02] VITALS (7 sets, daily range): BP systolic 92–122; BP diastolic 44–62; PULSE 68–80; RESP 16–20; TEMP 97.7–98.2; O2SAT 90–99
[2023-11-02] MEDS: PANTOPRAZOLE 40 MG TAB PO SCH (06:16)
[2023-11-02 06:37] LABS: Anion Gap 4 (5-15); Calcium 9.4 mg/dL (8.5-10.1); Carbon Dioxide 28 mmol/L (20-30); Chloride 107 mmol/L (98-107); Sodium 139 mmol/L (136-145)
[2023-11-02 06:44] LABS: BUN/Creatinine Ratio 9.3 (10.0-20.0); Blood Urea Nitrogen 11 mg/dL (9-23); Glucose 76 mg/dL (74-106)
[2023-11-02] MEDS: ERGOCALCIFEROL 50,000 UNIT(1.25MG) CAP PO SCH (10:02)
[2023-11-02] MEDS: AZITHROMYCIN 250 MG TAB PO SCH (10:02)
[2023-11-02] MEDS ORDERED: AZIT-43 PO (11:44)
[2023-11-02] MEDS ORDERED: ATOR20TA50 PO (11:44)
[2023-11-02] MEDS ORDERED: PANT40T PO (11:44)
[2023-11-02] MEDS ORDERED: ERGO1CAP23 PO (11:44)
[2023-11-02] MEDS ORDERED: CARV-214 PO (11:44)
[2023-11-02 13:45] LABS: Base Excess 4.5 mmol/L (-2.0-2.0)
[2023-11-03] VITALS (8 sets, daily range): BP systolic 95–103; BP diastolic 48–54; PULSE 70–81; RESP 16–18; TEMP 97.6–98.6; O2SAT 91–97
[2023-11-03 06:07] LABS: Anion Gap 8 (5-15); Basophils # (auto) 0 10 ^3/uL (0-0.2); Basophils % (auto) 0.9 % (0.0-2.0); Carbon Dioxide 27 mmol/L (20-30); Chloride 106 mmol/L (98-107); Eosinophils # (auto) 0.2 10 ^3/uL (0-0.8); Eosinophils % (auto) 4.2 % (0.0-7.0); Hematocrit 38.6 % (36.0-46.0); Hemoglobin 12.8 g/dL (12.2-16.2); Lymphocytes # (auto) 1.3 10 ^3/uL (0.4-5.4); Lymphocytes % (auto) 27.7 % (10.0-50.0); Mean Corpuscular Hemoglobin 29.6 pg (28.0-32.0); Mean Corpuscular Hgb Conc. 33.1 g/dL (32.0-36.0); Mean Corpuscular Volume 89.5 fL (80.0-100.0); Monocytes # (auto) 0.6 10 ^3/uL (0-1.3); Monocytes % (auto) 12.8 % (0.0-12.0); Neutrophils # (auto) 2.6 10 ^3/uL (1.6-8.6); Neutrophils % (auto) 54.4 % (37.0-80.0); Nucleated Red Blood Cells % 0.3 %; Potassium 3.4 mmol/L (3.5-5.1); Red Blood Cells 4.32 10^6/uL (4.0-5.20); Red Cell Distribution Width 13.4 % (11.8-14.3); Sodium 141 mmol/L (136-145); White Blood Cell 4.9 10^3/uL (4.4-10.8)
[2023-11-03 06:09] LABS: Calcium 9.6 mg/dL (8.7-10.4)
[2023-11-03 06:13] LABS: Blood Urea Nitrogen 9 mg/dL (9-23); Glucose 78 mg/dL (74-106)
[2023-11-03 09:28] LABS: Hepatitis B Surface Antigen Negative (Negative)
[2023-11-03 09:56] LABS: Hepatitis C Antibody Negative (Negative)
[2023-11-03] MEDS: FUROSEMIDE 40 MG TAB PO SCH (10:32)
[2023-11-03] MEDS: POTASSIUM EFFERVESENT TAB 25 MEQ GT ONE (10:33)
[2023-11-03] MEDS: FLUCONAZOLE 100 MG TAB PO SCH (10:35)
== END 2023-11-03 17:02 | disposition home or self-care (01) | DRG 177 ==
LOC: ER 11:33 → TELE 14:57 → TELE-WESTW 23:27 → WEST WING 11-01 16:34
PROVIDERS: ADMIT Internal Medicine; ATTEND Emergency Medicine
DX: J15.69 Pneumonia due to other Gram-negative bacteria (principal); I50.33 Acute on chronic diastolic (congestive) heart failure; J96.21 Acute and chronic respiratory failure with hypoxia; I13.0 Hypertensive heart and chronic kidney disease with heart failure and stage 1 through stage 4 chronic kidney disease, or unspecified chronic kidney disease; R64 Cachexia; B37.0 Candidal stomatitis; J15.9 Unspecified bacterial pneumonia; I27.20 Pulmonary hypertension, unspecified; I48.91 Unspecified atrial fibrillation; J43.9 Emphysema, unspecified; E87.6 Hypokalemia; E55.9 Vitamin D deficiency, unspecified; N18.30 Chronic kidney disease, stage 3 unspecified; J84.10 Pulmonary fibrosis, unspecified; Z20.822 Contact with and (suspected) exposure to COVID-19; K21.9 Gastro-esophageal reflux disease without esophagitis; Z86.718 Personal history of other venous thrombosis and embolism; Z79.01 Long term (current) use of anticoagulants; Z90.710 Acquired absence of both cervix and uterus; Z68.22 Body mass index [BMI] 22.0-22.9, adult; J98.4 Other disorders of lung
CPT/HCPCS: 36415; 36600; 71046; 80048; 80053; 80307; 81001; 82306; 82607; 82805; 83036; 83880; 84443; 84484; 85025; 85379; 85610; 85730; 86803; 87340; 87426; 93005; 96374; 99291; G0378

== ENCOUNTER → 2023-11-07 | Outpatient (CLI) | payer MEDICARE, MEDICAID ==
[~2023-11-07] MED LIST changes: -ATOR10TA52 PO; +ATOR20TA50 PO; +AZIT-43 PO; +CARV-214 PO; +ERGO1CAP23 PO; -METO25TA93 PO; -MYCO250C PO; +PANT40T PO; -POM
== END | disposition home or self-care (01) ==
LOC: Rad HDHVI 15:06
PROVIDERS: ATTEND Internal Medicine Cardiovascular Disease
DX: J84.9 Interstitial pulmonary disease, unspecified (principal); R06.02 Shortness of breath
CPT/HCPCS: 71046

== ENCOUNTER 2023-12-03 21:35 | Inpatient (IN) | payer MEDICARE, MEDICAID ==
[~2023-12-03] VITALS: Ht 157.5 cm; Wt 54.0 kg
[2023-12-03 22:18] LABS: Basophils # (auto) 0.1 10 ^3/uL (0-0.2); Basophils % (auto) 1.2 % (0.0-2.0); Eosinophils # (auto) 0.2 10 ^3/uL (0-0.8); Eosinophils % (auto) 3.5 % (0.0-7.0); Hematocrit 37.3 % (36.0-46.0); Hemoglobin 12.5 g/dL (12.2-16.2); Lymphocytes # (auto) 1.3 10 ^3/uL (0.4-5.4); Lymphocytes % (auto) 26.4 % (10.0-50.0); Mean Corpuscular Hemoglobin 29.6 pg (28.0-32.0); Mean Corpuscular Hgb Conc. 33.5 g/dL (32.0-36.0); Mean Corpuscular Volume 88.3 fL (80.0-100.0); Monocytes # (auto) 0.5 10 ^3/uL (0-1.3); Monocytes % (auto) 11.5 % (0.0-12.0); Neutrophils # (auto) 2.7 10 ^3/uL (1.6-8.6); Neutrophils % (auto) 57.4 % (37.0-80.0); Nucleated Red Blood Cells % 0.1 %; Red Blood Cells 4.22 10^6/uL (4.0-5.20); White Blood Cell 4.8 10^3/uL (4.4-10.8)
[2023-12-03] MEDS: ALBUTEROL SULF 2.5 MG/0.5ML(0.5%) NEB SOLN NEB ONE (22:24)
[2023-12-03 22:34] LABS: Chloride 107 mmol/L (98-107); Potassium 3.9 mmol/L (3.5-5.1); Sodium 140 mmol/L (136-145)
[2023-12-03 22:35] LABS: Anion Gap 6 (5-15); Calcium 9.1 mg/dL (8.7-10.4); Carbon Dioxide 27 mmol/L (20-30)
[2023-12-03 22:40] LABS: BUN/Creatinine Ratio 8.8 (10.0-20.0); Blood Urea Nitrogen 10 mg/dL (9-23); Glucose 87 mg/dL (74-106)
[2023-12-03] MEDS: FUROSEMIDE 40 MG/4 ML VIAL IV ONE (23:15)
[2023-12-03 23:41] VITALS: PULSE 73; RESP 21; O2SAT 95
[2023-12-04] VITALS (11 sets, daily range): BP systolic 103–125; BP diastolic 49–66; PULSE 63–79; RESP 18–20; TEMP 97.7–99; O2SAT 91–97
[2023-12-04] MEDS ORDERED: ACETAMINOPHEN 325 MG TAB PO PRN
[2023-12-04] MEDS ORDERED: ONDANSETRON HCL 4 MG/2 ML VIAL IV PRN
[2023-12-04] MEDS ORDERED: MORPHINE SULFATE INJ 2 MG/ml SYRG IV PRN
[2023-12-04] MEDS ORDERED: ALBUTEROL SULF 2.5 MG/0.5ML(0.5%) NEB SOLN NEB PRN
[2023-12-04] MEDS ORDERED: NITROGLYCERIN 0.4 MG SL TAB SL PRN
[2023-12-04] MEDS: methylPREDNISolone SOD SUCC 125 MG/2 ML VL IV ONE (00:41)
[2023-12-04] MEDS: DOXYCYCLINE 100MG/250ML 250 ML IV SCH (00:41)
[2023-12-04] MEDS ORDERED: FAMO-68 PO (03:44)
[2023-12-04] MEDS ORDERED: METO25TA93 PO (03:44)
[2023-12-04] MEDS ORDERED: POTA-36 PO (03:44)
[2023-12-04 05:58] LABS: Basophils # (auto) 0 10 ^3/uL (0-0.2); Basophils % (auto) 0.5 % (0.0-2.0); Eosinophils # (auto) 0 10 ^3/uL (0-0.8); Eosinophils % (auto) 0.2 % (0.0-7.0); Hematocrit 38.6 % (36.0-46.0); Hemoglobin 12.9 g/dL (12.2-16.2); Lymphocytes # (auto) 0.4 10 ^3/uL (0.4-5.4); Lymphocytes % (auto) 10.2 % (10.0-50.0); Mean Corpuscular Hemoglobin 29.5 pg (28.0-32.0); Mean Corpuscular Hgb Conc. 33.5 g/dL (32.0-36.0); Mean Corpuscular Volume 88.1 fL (80.0-100.0); Monocytes # (auto) 0.1 10 ^3/uL (0-1.3); Monocytes % (auto) 2.1 % (0.0-12.0); Neutrophils # (auto) 3.1 10 ^3/uL (1.6-8.6); Nucleated Red Blood Cells % 0.1 %; Red Blood Cells 4.38 10^6/uL (4.0-5.20); Red Cell Distribution Width 13.9 % (11.8-14.3); White Blood Cell 3.5 10^3/uL (4.4-10.8)
[2023-12-04] MEDS: methylPREDNISolone SOD SUCC 40 MG/ML VL IV SCH (06:12)
[2023-12-04] MEDS: SODIUM CHLOR 0.9% PF (SALINE LOCK) 10ML VIAL/SYR IV SCH (06:12)
[2023-12-04 06:17] LABS: Alanine Aminotransferase 14 U/L (7-40); Albumin 3.7 g/dL (3.2-4.8); Alkaline Phosphatase 91 U/L (46-116); Anion Gap 7 (5-15); Aspartate Aminotransferase 11 U/L (13-40); BUN/Creatinine Ratio 8.7 (10.0-20.0); Bilirubin, Total 0.5 mg/dL (0.2-1.0); Blood Urea Nitrogen 9 mg/dL (9-23); Calcium 9.2 mg/dL (8.7-10.4); Carbon Dioxide 26 mmol/L (20-30); Chloride 107 mmol/L (98-107); Glucose 126 mg/dL (74-106); Potassium 3.8 mmol/L (3.5-5.1); Sodium 140 mmol/L (136-145); Total Protein 5.9 g/dL (5.7-8.2)
[2023-12-04] MEDS: FUROSEMIDE 40 MG/4 ML VIAL IV SCH (09:47)
[2023-12-04] MEDS: FAMOTIDINE (10MG/ML) 2ML VL IV SCH (09:48)
[2023-12-04] MEDS: CARVEDILOL 3.125 MG TAB PO SCH (09:48)
[2023-12-04] MEDS ORDERED: XERALTO PO SCH (10:00)
[2023-12-04] MEDS ORDERED: SILDENAFIL CITRATE 20 MG TAB PO SCH (14:00)
[2023-12-04 15:20] LABS: Urine Bacteria None Seen /hpf (None Seen)
[2023-12-04 15:46] LABS: Urine Blood Negative /uL (Negative); Urine Clarity Clear (Clear); Urine Color Light-Yellow (Yellow); Urine Hyaline Cast FEW /lpf (0 - 2); Urine Protein, UAD Negative (Negative); Urine Specific Gravity 1.011 (1.001-1.035); Urine Urobilinogen Normal (Negative); Urine WBC <1 /hpf (0 - 5)
[2023-12-04] MEDS: predniSONE 20 MG TAB PO SCH (21:24)
[2023-12-04] MEDS: ATORVASTATIN 20 MG TAB PO SCH (21:26)
[2023-12-05] VITALS (10 sets, daily range): BP systolic 104–128; BP diastolic 44–57; PULSE 63–79; RESP 18; TEMP 98–98.4; O2SAT 90–98
[2023-12-05] MEDS: HYDROcodone-ACET 5/325MG TAB PO PRN (01:03)
[2023-12-05 07:15] LABS: Anion Gap 7 (5-15); Carbon Dioxide 25 mmol/L (20-30); Chloride 106 mmol/L (98-107); Potassium 4.4 mmol/L (3.5-5.1); Sodium 138 mmol/L (136-145)
[2023-12-05 07:16] LABS: Calcium 9.3 mg/dL (8.7-10.4)
[2023-12-05 07:20] LABS: Glucose 121 mg/dL (74-106)
[2023-12-05 07:21] LABS: BUN/Creatinine Ratio 12.2 (10.0-20.0); Blood Urea Nitrogen 15 mg/dL (9-23)
[2023-12-05] MEDS ORDERED: PIRF267T PO (13:24)
[2023-12-05] MEDS: RIVAROXABAN 2.5 MG TAB PO ONE (21:59)
[2023-12-06] VITALS (11 sets, daily range): BP systolic 120–138; BP diastolic 57–74; PULSE 58–85; RESP 16–20; TEMP 97.4–98.2; O2SAT 90–98
[2023-12-06] MEDS: RIVAROXABAN 2.5 MG TAB PO SCH (18:00)
[2023-12-06] MEDS: PIRFENIDONE 267 MG PO SCH (21:36)
[2023-12-07 01:00] VITALS: BP 117/59; PULSE 78; RESP 18; TEMP 98.1; O2SAT 90
[2023-12-07 05:00] VITALS: BP 105/53; PULSE 64; RESP 16; TEMP 97.8; O2SAT 94
[2023-12-07 08:30] VITALS: PULSE 76; PULSE 79; RESP 16; O2SAT 99
[2023-12-07 08:55] VITALS: BP 100/53; PULSE 79; RESP 16; TEMP 98.3; O2SAT 99
[2023-12-07 09:05] VITALS: O2SAT 99
[2023-12-07] MEDS: DOCUSATE SOD 100 MG CAP PO PRN (10:40)
[2023-12-07 12:55] VITALS: BP 103/54; PULSE 60; RESP 16; TEMP 97.6; O2SAT 98
== END 2023-12-07 17:30 | disposition home or self-care (01) | DRG 189 ==
LOC: ER 21:35 → TELE 23:55 → TELE-WESTW 12-04 02:50
PROVIDERS: ADMIT Internal Medicine; ATTEND Internal Medicine
DX: J96.21 Acute and chronic respiratory failure with hypoxia (principal); J18.9 Pneumonia, unspecified organism; J44.1 Chronic obstructive pulmonary disease with (acute) exacerbation; I13.0 Hypertensive heart and chronic kidney disease with heart failure and stage 1 through stage 4 chronic kidney disease, or unspecified chronic kidney disease; J44.0 Chronic obstructive pulmonary disease with (acute) lower respiratory infection; I48.91 Unspecified atrial fibrillation; I27.21 Secondary pulmonary arterial hypertension; I07.1 Rheumatic tricuspid insufficiency; K21.9 Gastro-esophageal reflux disease without esophagitis; J84.10 Pulmonary fibrosis, unspecified; E78.5 Hyperlipidemia, unspecified; N18.9 Chronic kidney disease, unspecified; I73.9 Peripheral vascular disease, unspecified; I50.9 Heart failure, unspecified; Z90.49 Acquired absence of other specified parts of digestive tract; Z99.81 Dependence on supplemental oxygen; Z90.710 Acquired absence of both cervix and uterus; Z86.711 Personal history of pulmonary embolism; Z82.49 Family history of ischemic heart disease and other diseases of the circulatory system; Z80.8 Family history of malignant neoplasm of other organs or systems; Z80.49 Family history of malignant neoplasm of other genital organs; Z83.3 Family history of diabetes mellitus; Z80.1 Family history of malignant neoplasm of trachea, bronchus and lung; Z80.0 Family history of malignant neoplasm of digestive organs
CPT/HCPCS: 36415; 71045; 80048; 80053; 81001; 83880; 84484; 85025; 93005; 94640; G0378; J3490

== ENCOUNTER → 2023-12-12 | Outpatient (CLI) | payer MEDICARE, MEDICAID ==
[~2023-12-12] MED LIST changes: -ATOR20TA50 PO; -AZIT-43 PO; +FAMO-68 PO; +METO25TA93 PO; -PANT40T PO; +PIRF267T PO; +POTA-36 PO
[2023-12-12 15:22] VITALS: BP 106/50; PULSE 65; RESP 20; O2SAT 94
[2023-12-12 15:35] VITALS: BP 112/45; PULSE 67; RESP 18; O2SAT 94
== END | disposition home or self-care (01) ==
LOC: Rad HDHVI 15:05
PROVIDERS: ATTEND Internal Medicine Cardiovascular Disease
DX: S82.435A Nondisplaced oblique fracture of shaft of left fibula, initial encounter for closed fracture (principal); M25.472 Effusion, left ankle; X58.XXXA Exposure to other specified factors, initial encounter; Y93.89 Activity, other specified; Y92.89 Other specified places as the place of occurrence of the external cause; Y99.8 Other external cause status
CPT/HCPCS: 73610; G0463

== ENCOUNTER → 2024-02-17 | Outpatient (CLI) | payer MEDICARE, MEDICAID | END | disposition home or self-care (01) | LOC: Rad HDHVI 11:48 | PROVIDERS: ATTEND Internal Medicine Cardiovascular Disease | DX: J32.9 Chronic sinusitis, unspecified (principal); R22.1 Localized swelling, mass and lump, neck; J34.2 Deviated nasal septum; R06.02 Shortness of breath; J43.9 Emphysema, unspecified | CPT/HCPCS: 70486; 70490 ==

== ENCOUNTER → 2024-04-16 | Outpatient (CLI) | payer MEDICARE, MEDICAID ==
--- NOTE | 2024-04-16 14:16 | DVH ---
XY CHEST TWO VIEWS ROUTINE CLINICAL HISTORY: SOB COMPARISON: XY CHEST TWO VIEWS ROUTINE on DOS: 11/07/23, XY CHEST TWO VIEWS ROUTINE on DOS: 10/31/23, CX R2 on DOS: 07/21/21 TECHNIQUE: Frontal and lateral view of the chest was obtained FINDINGS: Lines and Tubes: Dual lead right-sided pacemaker Lungs: No focal consolidation. Pleura: No effusion. No pneumothorax. Cardiomediastinal contours: Unremarkable Bones: No acute osseous abnormality. IMPRESSION: Mild pulmonary edema.
== END | disposition home or self-care (01) ==
LOC: Rad HDHVI 11:43
PROVIDERS: ATTEND Internal Medicine Cardiovascular Disease
DX: J81.1 Chronic pulmonary edema (principal); R06.02 Shortness of breath
CPT/HCPCS: 71046

== ENCOUNTER → 2024-04-30 | Outpatient (CLI) | payer MEDICARE, MEDICAID ==
[~2024-04-30] VITALS: Ht 157.5 cm; Wt 56.7 kg
[~2024-04-30] MED LIST changes: +ADENOSINE 48 MG in GIVE UN-DILUTED 0 ML IV ONE; +ADENOSINE 90 MG/30 ML INJ IV ONE
--- NOTE | 2024-05-02 16:16 | DVHSR ---
APPROVED REPORT EXAM: Two-dimensional and M-mode echocardiogram with Doppler and color Doppler. Surgery/Intervention Pacemaker: DIMENSIONS LVDd4.4 (3.8-5.7cm)LA (2D)3.1 (1.9-4.0cm)Aortic Root3.1 (2.0-3.7cm) LVDs2.7 (2.5-4.0cm)LA (MM) (1.9-4.0cm)Aortic Cusp Exc1.8 (1.5-2.0cm) EF (%) 65.0 (55-70%)Rt. Atrium3.9 (1.9-4.0cm)Asc. Aorta cm IVSd1.0 (0.7-1.1cm)RV (D)3.1 (1.8-2.4cm) PWd1.0 (0.7-1.1cm) Mitral Valve MitralMitral Stenosis E wave0.86m/sMV Mean GR.mmHg A wave1.11m/sMV Peak GR.mmHg E/A ratio0.82D MVAcm2 DECEL [id number] 1/2 Timems Aortic Valve Aortic ValveAortic Stenosis V11.09m/Colleen Mean GR.4mmHg V21.52m/Colleen Peak GR.9mmHg LVOT Diameter2.0 (1.8-2.4cm)Doppler AVA2.25cm2 Pulmonic Valve V20.96m/s Tricuspid Valve TR Velocity3.51m/s [id number] LEFT VENTRICLE The left ventricle is normal size. The left ventricle is normal in structure and function. The Ejection Fraction is within normal limits. RIGHT VENTRICLE The right ventricle is normal size. There is a pacemaker lead in the right ventricle. ATRIA The left atrial size is normal. The right atrium size is normal. A pacemaker is seen in the right atrium. The interatrial septum is intact with no evidence for an atrial septal defect. MITRAL VALVE The mitral valve is normal in structure. Mitral regurgitation is mild to moderate. PULMONIC VALVE The pulmonic valve is not well visualized. TRICUSPID VALVE The tricuspid valve is grossly normal. There is mild to moderate tricuspid regurgitation. Right ventricular systolic pressure is 50-60 mmHg. AORTIC VALVE The aortic valve opens well. No aortic regurgitation is present. GREAT VESSELS The aortic root is normal size. PERICARDIAL EFFUSION There is no pericardial effusion. Conclusion MOD TR MOD MR MOD PAH EF >60%
== END | disposition home or self-care (01) ==
LOC: Rad HDHVI 13:26
PROVIDERS: ATTEND Internal Medicine Cardiovascular Disease
DX: I08.1 Rheumatic disorders of both mitral and tricuspid valves (principal); R07.89 Other chest pain; I27.1 Kyphoscoliotic heart disease; I48.0 Paroxysmal atrial fibrillation; R06.02 Shortness of breath; E78.00 Pure hypercholesterolemia, unspecified; I11.0 Hypertensive heart disease with heart failure; I50.9 Heart failure, unspecified; I49.5 Sick sinus syndrome; Z95.0 Presence of cardiac pacemaker; Z82.49 Family history of ischemic heart disease and other diseases of the circulatory system
CPT/HCPCS: 78452; 93005; 93306; 96374; 96375; A9500; J0153

== ENCOUNTER → 2024-05-14 | Outpatient (CLI) | payer MEDICARE, MEDICAID ==
[~2024-05-14] MED LIST changes: -ADENOSINE 48 MG in GIVE UN-DILUTED 0 ML IV ONE; -ADENOSINE 90 MG/30 ML INJ IV ONE; +IOHEXOL 350 MG/ML 100ML IJ ONE
[2024-05-14 11:00] VITALS: BP 138/66; PULSE 83; RESP 18; O2SAT 90
[2024-05-14] MEDS: SODIUM CHLORIDE 0.9% 500 ML IV ONE (11:10)
--- NOTE | 2024-05-14 13:12 | DVH ---
CLINICAL INFORMATION: 84 years old, Female; CERVICAL ADENOPATHY. TECHNIQUE: Axial CT images of the neck soft tissues were obtained after the uneventful administration of 100 mL Omnipaque 300 IV contrast. Coronal and sagittal reformatted images were obtained, stored, and reviewed. One or more of the following dose reduction techniques were used: Automated exposure co ntrol. Adjustment of mA and/or kV according to patient size. CTDIvol = 120.92 mGy DLP = 281.68 mGy-cm COMPARISON: CT NECK WITHOUT CONTRAST on DOS: 02/17/24 FINDINGS: Nasopharynx: Torus tubarius and fossa of Rosenmuller are unremarkable. No mass or fluid collection. U nremarkable adenoid tonsils. Oropharynx: No evidence of mass or abscess. Unremarkable palatine tonsils and lingual tonsils. Hypopharynx/Larynx: Unremarkable. No mass or fluid collection. Paranasal sinuses: Mild mucosal thickening of the visualized portions of the paranasal sinuses. Lymph nodes: No cervical or submandibular lymphadenopathy. Neck glands: Symmetric prominence of the parotid glands and submandibular glands bilaterally. Enlarge d, heterogeneous thyroid gland with multiple nodules, the largest of which is seen in the right thyro id lobe measuring up to 1.9 cm in greatest dimension. Vasculature: Icyz-eb-rwgofwzt atherosclerotic calcification of the carotid bifurcations bilaterally w ithout significant stenosis. 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 Facet and uncinate hypertrophy with associated multilev el moderate to severe neural foraminal stenoses. Visualized superior mediastinum: Unremarkable. Lung apices: Partially visualized small right pleural effusion. Ground-glass attenuation and interlo bular septal thickening in the visualized portions of the lungs, may be seen with interstitial pulmon alexus edema in the appropriate clinical setting. Other findings: None. IMPRESSION: 1. No cervical or submandibular lymphadenopathy. 2. Prominence of the parotid glands and submandibular glands bilaterally and symmetrically. 3. Enlarged, heterogeneous thyroid gland with multiple nodules, the largest of which measures 1.9 cm in greatest dimension. Based on size, ultrasound recommended to further evaluate. 4. Partially visualized small right pleural effusion and findings consistent with possible interstiti al pulmonary edema in the appropriate clinical setting as detailed above. 5. Additional findings as detailed above.
[2024-05-14 13:32] VITALS: BP 147/62; PULSE 83; RESP 18; O2SAT 90
== END | disposition home or self-care (01) ==
LOC: Rad HDHVI 10:43
PROVIDERS: ATTEND Internal Medicine Cardiovascular Disease
DX: E04.2 Nontoxic multinodular goiter (principal); I65.23 Occlusion and stenosis of bilateral carotid arteries; J90 Pleural effusion, not elsewhere classified; M50.30 Other cervical disc degeneration, unspecified cervical region; M48.02 Spinal stenosis, cervical region; M46.02 Spinal enthesopathy, cervical region; G93.89 Other specified disorders of brain; R59.9 Enlarged lymph nodes, unspecified
CPT/HCPCS: 70491; 96360; 96361; G0463; Q9967

== ENCOUNTER → 2024-06-01 | Outpatient (CLI) | payer MEDICARE, MEDICAID ==
[~2024-06-01] MED LIST changes: -IOHEXOL 350 MG/ML 100ML IJ ONE
[2024-06-01 11:28] VITALS: BP 98/52; PULSE 74; RESP 18; O2SAT 92
[2024-06-01] MEDS: methylPREDNISolone SOD SUCC 125 MG/2 ML VL ONE (11:49)
[2024-06-01] MEDS: methylPREDNISolone SOD SUCC 125 MG/2 ML VL IV ONE (11:55)
[2024-06-01] MEDS: CYANOCOBALAMIN (B-12) 1000 MCG/1 ML VIAL IM ONE (11:59)
[2024-06-01] MEDS: CYANOCOBALAMIN (B-12) 1000 MCG/1 ML VIAL ONE (12:00)
[2024-06-01 12:05] VITALS: BP 105/46; PULSE 74; RESP 18; O2SAT 92
== END | disposition home or self-care (01) ==
LOC: CHF HDHVI 11:30
PROVIDERS: ATTEND Internal Medicine Cardiovascular Disease
DX: J84.10 Pulmonary fibrosis, unspecified (principal); I11.0 Hypertensive heart disease with heart failure; I50.9 Heart failure, unspecified; I48.0 Paroxysmal atrial fibrillation; E78.00 Pure hypercholesterolemia, unspecified; Z95.0 Presence of cardiac pacemaker
CPT/HCPCS: 96372; 96374; G0463; J2919; J3420

== ENCOUNTER → 2024-06-13 | Outpatient (CLI) | payer MEDICARE, MEDICAID | END | disposition home or self-care (01) | LOC: Rad HDHVI 12:53 | PROVIDERS: ATTEND Internal Medicine Cardiovascular Disease | DX: I11.0 Hypertensive heart disease with heart failure (principal); I50.9 Heart failure, unspecified; I27.21 Secondary pulmonary arterial hypertension | CPT/HCPCS: 93306 ==

== ENCOUNTER → 2024-07-20 | Day surgery (SDC) | payer MEDICARE, MEDICAID ==
[2024-07-13 12:48] LABS: Basophils # (auto) 0.1 10 ^3/uL (0-0.2); Basophils % (auto) 0.8 % (0.0-2.0); Eosinophils # (auto) 0 10 ^3/uL (0-0.8); Eosinophils % (auto) 0.6 % (0.0-7.0); Hematocrit 38.1 % (36.0-46.0); Hemoglobin 12.5 g/dL (12.2-16.2); Lymphocytes % (auto) 15.2 % (10.0-50.0); Mean Corpuscular Hemoglobin 27.4 pg (28.0-32.0); Mean Corpuscular Hgb Conc. 32.7 g/dL (32.0-36.0); Mean Corpuscular Volume 83.7 fL (80.0-100.0); Monocytes # (auto) 0.8 10 ^3/uL (0-1.3); Monocytes % (auto) 12.4 % (0.0-12.0); Neutrophils # (auto) 4.6 10 ^3/uL (1.6-8.6); Nucleated Red Blood Cells % 0.1 %; Platelet Count (auto) 290 10^3/uL (140-450); Red Blood Cells 4.55 10^6/uL (4.0-5.20); Red Cell Distribution Width 16.4 % (11.8-14.3); White Blood Cell 6.4 10^3/uL (4.4-10.8)
[2024-07-13 12:55] LABS: INR 1.01 (0.9-1.15); Partial Thromboplastin Time 28.5 SEC (24.5-34.5); Prothrombin Time 10.7 sec (9.3-11.8)
[2024-07-13 13:05] LABS: Urine Bacteria FEW /hpf (None Seen); Urine Blood Negative /uL (Negative); Urine Clarity Clear (Clear); Urine Color Yellow (Yellow); Urine Protein, UAD 1+ (Negative); Urine Specific Gravity 1.033 (1.001-1.035); Urine Squamous Epithelial Cell FEW /hpf (<5); Urine Urobilinogen Normal (Negative); Urine WBC 2 /HPF (0-5); Urine pH 5.5 (5.0-9.0)
[2024-07-13 13:34] LABS: Albumin 4.2 g/dL (3.2-4.8); Alkaline Phosphatase 88 U/L (46-116); Anion Gap 7 (5-15); BUN/Creatinine Ratio 8.9 (10.0-20.0); Bilirubin, Total 0.5 mg/dL (0.2-1.0); Blood Urea Nitrogen 11 mg/dL (9-23); Calcium 9.8 mg/dL (8.7-10.4); Chloride 105 mmol/L (98-107); Glucose 103 mg/dL (74-106); Potassium 3.8 mmol/L (3.5-5.1); Sodium 143 mmol/L (136-145); Total Protein 6.5 g/dL (5.7-8.2)
[2024-07-13 13:35] LABS: Alanine Aminotransferase < 9 U/L (7-40); Aspartate Aminotransferase 11 U/L (13-40); Carbon Dioxide 31 mmol/L (20-31)
[~2024-07-20] VITALS: Ht 157.5 cm; Wt 60.8 kg
[~2024-07-20] MED LIST changes: -ALBU108A5 IN; -CARV-214 PO; -ERGO1CAP23 PO; +ESOM1CAP38 PO; -FAMO-68 PO; +FLUT1AER17 IN; +LIDOCAINE 1% INJ PF 5ML AMP ONE; -POTA-36 PO; +PROPOFOL 10 MG/ML 20 ML IV ONE; -SERDISK IN
[2024-07-20 09:10] VITALS: TEMP 97.3
[2024-07-20 10:49] VITALS: O2SAT 96
--- NOTE | 2024-07-20 10:55 | DVHOP2 ---
Operative Report DATE OF OPERATION: 07/20/24 PROCEDURE: Diagnostic Colonoscopy. PREOPERATIVE INDICATION: The patient is a 84 -year-old female undergoing colonoscopy for surveillance with history of constipation personal history of colon polyps last colonoscopy eight years ago POSTOPERATIVE DIAGNOSES: 1. Patient had 1+ internal external hemorrhoids with grade 1 prolapse of the hemorrhoids 2. Mild tortuosity of the colon otherwise completely normal colonoscopy examination up to the cecum and terminal ileum PROCEDURE PERFORMED BY: Therese Horowitz M.D. SCOPE: Olympus videocolonoscope. ASA CLASS: 3. PREOPERATIVE MEDICATIONS: Mac sedation, Silas Deng PROCEDURE IN DETAIL: After obtaining an informed consent, the patient was placed on left lateral decubitus position. She was then sedated with the above medications. A rectal examination was performed that showed prolapsed hemorrhoids that were reduced. The colonoscope was then passed through the anus into the rectosigmoid and through the descending, transverse, and ascending colon up to the cecum with visualization of the appendiceal orifice, base of the cecum and the ileocecal valve. The colonoscope was then withdrawn. Distal 3-5 cm of the terminal ileum were normal No polyps or masses were seen. There was no colitis or clear-cut diverticular disease. Patient had mild tortuosity of the colon. On retroflexion and straight on view she had 1+ internal hemorrhoids The patient tolerated the procedure well without difficulty. WITHDRAWAL TIME: 7 minutes QUALITY OF THE PREP: Davenport Bowel Prep score: 9. COMPLICATIONS : None SPECIMENS: None DISPOSITION: Stable D/C to home PLAN: 1. Repeat colonoscopy in 5-7 years for surveillance if required 2. Resume GI soft diet advance as tolerated 3. Outpatient follow up with me in 4-6 weeks to review results and discuss further management THERESE HOROWITZ MD Jul 20, 2024 10:55
[2024-07-20 11:19] VITALS: BP 119/67; PULSE 67; RESP 17; O2SAT 95
== END | disposition home or self-care (01) ==
LOC: GI 08:59
PROVIDERS: ATTEND Internal Medicine Gastroenterology
DX: K59.00 Constipation, unspecified (principal); K64.0 First degree hemorrhoids; K21.9 Gastro-esophageal reflux disease without esophagitis; I50.9 Heart failure, unspecified; N18.32 Chronic kidney disease, stage 3b; E07.9 Disorder of thyroid, unspecified; J43.9 Emphysema, unspecified; E66.3 Overweight; Z68.24 Body mass index [BMI] 24.0-24.9, adult; Z86.0100 Personal history of colon polyps, unspecified; Z95.0 Presence of cardiac pacemaker; Z87.11 Personal history of peptic ulcer disease; Z90.710 Acquired absence of both cervix and uterus; Z90.49 Acquired absence of other specified parts of digestive tract; Z98.890 Other specified postprocedural states; Z88.1 Allergy status to other antibiotic agents
CPT/HCPCS: 36415; 45378; 80053; 81001; 85025; 85610; 85730; J2704; J7030

== ENCOUNTER 2024-09-28 08:43 | Day surgery (SDC) | payer MEDICARE, MEDICAID ==
[2024-09-25 11:36] LABS: Urine Bacteria None Seen /hpf (None Seen)
[2024-09-25 11:43] LABS: Basophils # (auto) 0.1 10 ^3/uL (0-0.2); Basophils % (auto) 1.1 % (0.0-2.0); Eosinophils # (auto) 0.1 10 ^3/uL (0-0.8); Eosinophils % (auto) 2.6 % (0.0-7.0); Hematocrit 34.9 % (36.0-46.0); Hemoglobin 11.7 g/dL (12.2-16.2); Lymphocytes # (auto) 0.8 10 ^3/uL (0.4-5.4); Lymphocytes % (auto) 16.3 % (10.0-50.0); Mean Corpuscular Hemoglobin 27.5 pg (28.0-32.0); Mean Corpuscular Hgb Conc. 33.4 g/dL (32.0-36.0); Mean Corpuscular Volume 82.4 fL (80.0-100.0); Monocytes # (auto) 0.4 10 ^3/uL (0-1.3); Neutrophils # (auto) 3.4 10 ^3/uL (1.6-8.6); Platelet Count (auto) 222 10^3/uL (140-450); Red Blood Cells 4.24 10^6/uL (4.0-5.20); Red Cell Distribution Width 16.9 % (11.8-14.3); White Blood Cell 4.8 10^3/uL (4.4-10.8)
[2024-09-25 11:58] LABS: INR 1.04 (0.9-1.15); Partial Thromboplastin Time 30.3 SEC (24.5-34.5)
[2024-09-25 12:11] LABS: Urine Blood TRACE /uL (Negative); Urine Clarity Clear (Clear); Urine Color Light-Yellow (Yellow); Urine Hyaline Cast FEW /lpf (0 - 2); Urine Mucus FEW (None Seen); Urine Protein, UAD Negative (Negative); Urine Squamous Epithelial Cell FEW /hpf (<5); Urine Urobilinogen Normal (Negative); Urine WBC 4 /HPF (0-5); Urine pH 5.5 (5.0-9.0)
[2024-09-25 12:29] LABS: Alkaline Phosphatase 81 U/L (46-116); Anion Gap 6 (5-15); BUN/Creatinine Ratio 8.9 (10.0-20.0); Bilirubin, Total 0.5 mg/dL (0.2-1.0); Blood Urea Nitrogen 15 mg/dL (9-23); Calcium 9.8 mg/dL (8.7-10.4); Carbon Dioxide 29 mmol/L (20-31); Glucose 88 mg/dL (74-106); Sodium 144 mmol/L (136-145); Total Protein 6.5 g/dL (5.7-8.2)
[2024-09-25 12:31] LABS: Alanine Aminotransferase < 9 U/L (7-40); Aspartate Aminotransferase 9 U/L (13-40); Chloride 109 mmol/L (98-107); Potassium 3.3 mmol/L (3.5-5.1)
[~2024-09-28] VITALS: Ht 157.5 cm; Wt 58.1 kg
[~2024-09-28 08:43] MED LIST changes: +DOXY-346 PO; -LIDOCAINE 1% INJ PF 5ML AMP ONE; -PROPOFOL 10 MG/ML 20 ML IV ONE; +RIOC1TAB15 PO
[2024-09-28] MEDS ORDERED: PROPOFOL 10 MG/ML 20 ML IV ONE (08:55)
--- NOTE | 2024-09-28 10:06 | DVHOP2 ---
Operative Report DATE OF OPERATION: 09/28/24 PROCEDURE: Upper Endoscopy with biopsy and dilate esophagus unguided. PREOPERATIVE INDICATION: The patient is a 84 -year-old female undergoing endoscopy for chronic GERD and dysphagia requesting dilation POSTOPERATIVE DIAGNOSES: 1. 3-4 cm sliding-type hiatal hernia with a Schatzki's ring at the GE junction 2. Mild gastritis and mild duodenitis of the duodenal bulb 3. Distal esophagus was dilated with Mcleod number 44 PROCEDURE PERFORMED BY: Therese [place] GI NURSE: Juliet SCOPE: Olympus videoendoscope. ASA CLASS: 3 PREOPERATIVE MEDICATIONS: Mac sedation, Dr. Max PROCEDURE IN DETAIL: After obtaining an informed consent, the patient was placed on left lateral decubitus position. The patient was then sedated with the above medications. A bite block was placed between her teeth. The endoscope was then passed through the oropharynx, into the esophagus, and through the stomach and pylorus up to the second and third part of the duodenum. The endoscope was then withdrawn. The 2nd and 3rd part of the duodenal were normal. There was good bile drainage. Duodenal bulb showed mild duodenitis. Duodenal biopsies were obtained. The pre-pyloric area antrum and body showed mild gastritis with some hyperemia erythema superficial erosions. Gastric biopsies were obtained. On retroflexion the fundus and cardia were normal. A hiatal hernia was noted. The endoscope was then withdrawn into the distal esophagus. Patient had a 3-4 cm sliding-type hiatal hernia with a Schatzki's ring and grade a erosive esophagitis of the GE junction. The remaining distal and proximal esophagus showed some tertiary contractions. The endoscope was then withdrawn. A Mcleod dilator number 44 was passed through esophagus with no significant resistance. Repeat endoscopy confirmed adequate dilatation. There was minimal mucosal separation with oozing in the proximal esophagus GE junction biopsies were obtained. The remaining distal and proximal esophagus and oropharynx were unremarkable The patient tolerated the procedure well without difficulty. COMPLICATIONS : None SPECIMENS: Duodenal biopsies Gastric biopsies GE junction biopsies DISPOSITION: Stable D/C to home PLAN: 1. Await for biopsy result 2. Will place pt on Protonix 40 mg bid p.o. 3. Carafate suspension 1 g p.o. twice a day 4. Start with clear liquid diet advance to full liquid and then soft mechanical over the next 48 hours 5. Patient was advised to return to the ER if she developed any chest pain shortness of breath or difficulty swallowing 6. Outpatient follow up with me in 4-6 weeks to review results and discuss further management 7. Hold aspirin and blood thinners for one week THERESE BIRMINGHAM MD Sep 28, 2024 10:06
[2024-09-28 10:30] VITALS: BP 102/60; PULSE 75; RESP 12; O2SAT 97
== END 2024-09-28 10:35 | disposition home or self-care (01) ==
LOC: GI 08:43
PROVIDERS: ATTEND Internal Medicine Gastroenterology
DX: K21.00 Gastro-esophageal reflux disease with esophagitis, without bleeding (principal); K29.50 Unspecified chronic gastritis without bleeding; K22.2 Esophageal obstruction; K29.80 Duodenitis without bleeding; K44.9 Diaphragmatic hernia without obstruction or gangrene; J44.9 Chronic obstructive pulmonary disease, unspecified; I13.0 Hypertensive heart and chronic kidney disease with heart failure and stage 1 through stage 4 chronic kidney disease, or unspecified chronic kidney disease; I50.9 Heart failure, unspecified; N18.32 Chronic kidney disease, stage 3b; Z90.710 Acquired absence of both cervix and uterus; Z98.890 Other specified postprocedural states; Z79.899 Other long term (current) drug therapy
CPT/HCPCS: 36415; 43239; 43450; 80053; 81001; 85025; 85610; 85730; 88305; 88312; 88342; J2704; J7030

== ENCOUNTER 2024-12-31 13:27 | Inpatient (IN) | payer MEDICARE, MEDICAID ==
[~2024-12-31] VITALS: Ht 157.5 cm; Wt 56.2 kg
--- NOTE | 2024-12-31 14:41 | ED.PDOC ---
History of Present Illness HPI Comments 84 year old female presents to the ED with a chief complaint of dizziness onset 2 weeks. Patient states she has been experiencing dizziness, shortness of breath, generalized weakness, abdominal pain, poor appetite, nausea for the past 2 weeks. Patient noticed symptoms have worsened, has been on Z-pac and Diflucan these past 2 weeks. PMHx a-fib, CHF, CKF, COPD, GERD, HLD, HTN, PE. Denies vomiting, diarrhea, chest pain, blurred vision, dysuria, hematuria, melena. No other symptoms or modifying factors present at this time. Chief Complaint: Dizziness Time Seen by MD: 14:30 Primary Care Provider: MELISSA Reviewed Notes: Medications, Allergies Allergies: Coded Allergies: Levofloxacin (Verified Allergy, Unknown, 04/20/23) Home Meds Reported Medications Doxycycline (Monohydrate) (Doxycycline) 100 Mg Tab, 1 TAB PO BID 09/04/24 Errrllxdoik-Iepggoijetnz-Uuisv (Trelegy Ellipta 200-62.5-25 Mcg/INH) 1 Aer Aer, 1 AER IN, AER 09/03/24 [place] (Adempas) 2.5 Mg Tab, 2.5 MG PO, TAB 09/03/24 Esomeprazole Magnesium (Esomeprazole Magnesium) 40 Mg Cap, 40 MG PO BID, CAP 07/13/24 Vbxtbpivodf-Niloywghqmav-Rnado (Trelegy Ellipta 200-62.5-25 Mcg/INH) 1 Aer Aer, 1 AER IN, AER 07/13/24 Pirfenidone Base (Pirfenidone) 267 Mg Tab, 267 MG PO TID, #3 TAB 12/05/23 Metoprolol Succinate (Metoprolol Succinate Er) 25 Mg Tab, 1 TAB PO DAILY, #30 TAB 5 Refills 12/04/23 Zolpidem Tartrate (Ambien) 10 Mg Tab, 1 TAB PO QPM for INSOMNIA, #30 TAB 5 Refills 04/20/23 Ri[place] (Adempas) 1.5 Mg Tab, 2.5 MG PO TID for HTN, TAB 04/20/23 Rivaroxaban (Xarelto) 2.5 Mg Tab, 5 MG PO DAILY for S/P PULMONARY EMBOLISM, TAB 04/20/23 Potassium Chloride (Potassium Chloride ER) 20 Meq Tab, 1 TAB PO DAILY for SUPPLEMENT 10/22/19 Calcitriol (Calcitriol) 0.25 Mcg Cap, 1 CAP PO DAILY for SUPPLEMENT 10/21/19 Furosemide (Furosemide) 40 Mg Tab, 1 TAB PO DAILY for CHF 01/22/19 Macitentan (Opsumit) 10 Mg Tab, 1 TAB PO DAILY for PULMONARY HYPERTENSION 01/22/19 Information Source: Patient Mode of Arrival: Wheelchair Severity: Moderate Timing: Weeks Duration: Since onset Prehospital treatment: None Past Medical History PAST MEDICAL HISTORY: AFIB, CHF, CKF, COPD, GERD, High Lipids, HTN, PE Surgical History: Cholecystectomy, Hysterectomy, Pacemaker FIELD RADIO OPERATOR History: No Pertinent FIELD RADIO OPERATOR History Family History Family History: Reviewed,noncontributory to illness Social History Smoker: Quit Greater Than 1 Year Alcohol: Denies ETOH Use Drugs: Denies Drug Use Lives In: Home Constitutional: reports: weakness; denies: chills, diaphoresis, fatigue, fever, malaise, sweats, others EENTM: denies: blurred vision, double vision, ear bleeding, ear discharge, ear drainage, ear pain, ear ringing, eye pain, eye redness, hearing loss, mouth pain, mouth swelling, nasal discharge, nose bleeding, nose congestion, nose pain, photophobia, tearing, throat pain, throat swelling, voice changes, others Respiratory: reports: shortness of breath; denies: cough, hemoptysis, orthopnea, SOB at rest, SOB with excertion, stridor, wheezing, others Cardiovascular: denies: chest pain, dizzy spells, diaphoresis, Dyspnea on exertion, edema, irregular heart beat, left arm pain, lightheadedness, palpitations, PND, syncope, others Gastrointestinal: reports: abdominal pain, nausea, poor appetite; denies: abdomen distended, blood streaked bowels, constipated, diarrhea, dysphagia, difficulty swallowing, hematemesis, melena, poor fluid intake, rectal bleeding, rectal pain, vomiting, others Genitourinary: denies: abnormal vagina bleeding, burning, dyspareunia, dysuria, flank pain, frequency, hematuria, incontinence, pain, , vagina discharge, urgency, others Neurological: reports: dizziness, weakness; denies: fainting, headache, left sided numbness, left sided weakness, numbness, paresthesia, pre-existing deficit, right sided numbness, right sided weakness, seizure, speech problems, tingling, tremors, others Musculoskeletal: denies: back pain, gout, joint pain, joint swelling, muscle pain, muscle stiffness, neck pain, others Integumetry: denies: bruises, change in color, change in hair/nails, dryness, laceration, lesions, lumps, rash, wounds, others Allergic/Immunocompromised: denies: Difficulty Healing, Frequent Infections, Hives, Itching, others Hematologic/Lymphatic: denies: anemia, blood clots, easy bleeding, easy bruising, swollen glands, others Endocrine: denies: excessive hunger, excessive sweating, excessive thirst, excessive urination, flushing, intolerance to cold, intolerance to heat, unexplained weight gain, unexplained weight loss, others Psychiatric: denies: anxiety, bipolar disorder, depression, hopeless, panic disorder, schizophrenia, sleepless, suicidal, others All Other Systems: Reviewed and Negative Physical Exam General Appearance: Moderate Distress HEENT: Normal ENT Inspection, Pharynx Normal, TMs Normal Neck: Full Range of Motion, Non-Tender, Normal, Normal Inspection Respiratory: Chest Non-Tender, Lungs Clear, No Accessory Muscle Use, No Respiratory Distress, Normal Breath Sounds Cardiovascular: No Edema, No JVD, No Murmur, No Gallop, Normal Peripheral Pulses, Regular Rate/Rhythm Breast Exam: Deferred Gastrointestinal: No Organomegaly, Non Tender, No Pulsatile Mass, Normal Bowel Sounds, Soft Genitalia: Deferred Pelvic: Deferred Rectal: Deferred Extremities: No calf tenderness, Normal capillary refill, Normal inspection, Normal range of motion, Non-tender, No pedal edema Musculoskeletal : Apperance: Normal Neurologic: Alert, middle stitcher II-XII nml as Tested, No Motor Deficits, Normal Affect, Normal Mood, No Sensory Deficits Cerebellar Function: NOT DONE Reflexes: NOT DONE Skin: Dry, Normal Color, Warm Peripheral Pulses: 3+ Radial (R), 3+ Radial (L) Lymphatic: No Adenopathy Was a procedure done? Was a procedure done?: No Differential Dx Considerations may include: Anemia Electrolyte imbalance X-Ray, Labs, Meds, VS Vital Signs Date Time Temp Pulse Resp B/P (MAP) Pulse Ox O2 Delivery O2 Flow Rate FiO2 12/31/24 14:15 77 19 102/59 (73) 97 12/31/24 13:46 98.9 75 16 84/39 100 98.9 12/31/24 13:31 72 Lab Test 12/31/24 14:30 Range/Units White Blood Count 4.5 4.4-10.8 10^3/uL Red Blood Count 4.88 4.0-5.20 10^6/uL Hemoglobin 13.3 12.2-16.2 g/dL Hematocrit 40.6 36.0-46.0 % Mean Corpuscular Volume 83.2 80.0-100.0 fL Mean Corpuscular Hemoglobin 27.2 L 28.0-32.0 pg Mean Corpuscular Hemoglobin Concent 32.7 32.0-36.0 g/dL Red Cell Distribution Width 15.9 H 11.8-14.3 % Platelet Count 278 140-450 10^3/uL Mean Platelet Volume 7.8 6.9-10.8 fL Neutrophils (%) (Auto) 66.5 37.0-80.0 % Lymphocytes (%) (Auto) 19.2 10.0-50.0 % Monocytes (%) (Auto) 10.1 0.0-12.0 % Eosinophils (%) (Auto) 2.8 0.0-7.0 % Basophils (%) (Auto) 1.4 0.0-2.0 % Neutrophils # (Auto) 3.0 1.6-8.6 10 ^3/uL Lymphocytes # (Auto) 0.9 0.4-5.4 10 ^3/uL Monocytes # (Auto) 0.5 0-1.3 10 ^3/uL Eosinophils # (Auto) 0.1 0-0.8 10 ^3/uL Basophils # (Auto) 0.1 0-0.2 10 ^3/uL Nucleated Red Blood Cells 0.0 % Sodium Level 139 136-145 mmol/L Potassium Level 4.5 3.5-5.1 mmol/L Chloride Level 108 H 98-107 mmol/L Carbon Dioxide Level 22 20-31 mmol/L Anion Gap 9 5-15 Blood Urea Nitrogen 31 H 9-23 mg/dL Creatinine 2.40 H 0.550-1.02 mg/dL Glomerular Filtration Rate Calc 19 >90 mL/min BUN/Creatinine Ratio 12.9 10.0-20.0 Serum Glucose 107 H 74-106 mg/dL Calcium Level 11.6 H 8.7-10.4 mg/dL Troponin I High Sensitivity 8 </=34 ng/L Patient alert. Generalized weakness. Vitals stable. Hypercalcemia. Cardiac marker within normal limits. Kidney function elevated. WBC within normal limits. She is hypotensive. Establish intravenous access. Was given fluids. Explained to the patient. Continue monitoring. Time of 1ST Reevaluation: 15:00 Reevaluation 1ST: Unchanged Patient Education/Counseling: Diagnosis, Treatment, Prognosis Family Education/Counseling: No Family Present SEPSIS Sepsis Screen Date sepsis recognized/suspect: Dec 31, 2024 Time Sepsis recognized/suspect: 1402 Recent Procedure: No On Antibiotic Therapy: No Respiratory Rate >20: No Heart Rate >90: No Temp<36 C (96.8 F) or >38.3 C: No SBP <90 or MAP <65 mmHG: No New Acute Mental Status Change: No Is the patient on CPAP, BIPAP,: No Physician Orders Urinalysis (12/31/24 13:30) Electrocardigram (12/31/24 14:23) Head Without Contrast (12/31/24 15:34) Vital Signs Date Time Temp Pulse Resp B/P (MAP) Pulse Ox O2 Delivery O2 Flow Rate FiO2 12/31/24 14:15 77 19 102/59 (73) 97 12/31/24 13:46 98.9 75 16 84/39 100 98.9 12/31/24 13:31 72 Laboratory Tests Test 12/31/24 14:30 White Blood Count 4.5 10^3/uL (4.4-10.8) Departure 1 Departure Time of Disposition: 16:11 Impression: Primary Impression: Hypotension Qualified Codes: I95.9 - Hypotension, unspecified Additional Impression: Generalized weakness Disposition: 09 ADMITTED INPATIENT Admit to: Med Surg Condition: Guarded Critical Care Note Critical Care Time?: No Stability Stability form required: No Heart Score Heart Score: Heart Score Response (Comments) Value History Slightly Suspicious 0 EKG Normal 0 Age >65 2 Risk Factors >3 or Hx ASHD 2 Troponin Normal limit 0 Total 4 I personally scribed for SARAH BETH CARTER MD ([email or web address]) on 12/31/24 at 14:41. Electronically submitted by Razia Wood ([email or web address]). SARAH BETH CARTER MD Dec 31, 2024 14:41
[2024-12-31 14:47] LABS: Nucleated Red Blood Cells % 0.0 %
[2024-12-31 14:50] LABS: Hematocrit 40.6 % (36.0-46.0); Hemoglobin 13.3 g/dL (12.2-16.2); Mean Corpuscular Hemoglobin 27.2 pg (28.0-32.0); Mean Corpuscular Volume 83.2 fL (80.0-100.0)
[2024-12-31 14:56] LABS: Potassium 4.5 mmol/L (3.5-5.1); Sodium 139 mmol/L (136-145)
[2024-12-31 14:57] LABS: Anion Gap 9 (5-15); Carbon Dioxide 22 mmol/L (20-31); Chloride 108 mmol/L (98-107)
[2024-12-31 14:59] LABS: Calcium 11.6 mg/dL (8.7-10.4)
[2024-12-31 15:03] LABS: BUN/Creatinine Ratio 12.9 (10.0-20.0); Blood Urea Nitrogen 31 mg/dL (9-23); Glucose 107 mg/dL (74-106)
--- NOTE | 2024-12-31 16:16 | DVH ---
EXAM: CT HEAD WITHOUT CONTRAST INDICATION: dizzy TECHNIQUE: CT images of the head were obtained without administration of IV contrast. CT scans at [facility] use dose modulation, iterative reconstruction, and/or weight based dosing when appropriate to reduce radiation dose to as low as reasonably achievable. COMPARISON: CT SINUS WITHOUT CONTRAST on DOS: 08/29/24 FINDINGS: PARENCHYMA: No acute hemorrhage. There is no mass effect, midline shift, or herniation. There is pres ervation of the gupta white differentiation. Mild scattered hypoattenuation along the periventricular, centrum semiovale, and deep white matter tracts, which are nonspecific however statistically most li bruce represent chronic microvascular ischemic change. VENTRICLES: No hydrocephalus. EXTRA-AXIAL SPACES: No extra-axial fluid collections. OTHER: The bony structures are intact. Visualized portions of the paranasal sinuses and mastoid air cells are clear. Degenerative change of bilateral temporomandibular joints. IMPRESSION: 1. No CT evidence of an acute intracranial abnormality.
[2024-12-31 17:12] VITALS: PULSE 77; RESP 14; O2SAT 97
[2024-12-31 23:11] LABS: Urine Protein, UAD Negative (Negative)
--- NOTE | 2024-12-31 23:48 | DVHHPRES ---
History of Present Illness Resident Creating Document: BRE PAK History of Present Illness History of Present Illness (HPI): Elham Restrepo is an 84-year-old female with a significant medical history including heart failure with preserved ejection fraction (HFpEF), hypertension, pulmonary arterial hypertension, emphysema, lung fibrosis, gastroesophageal reflux disease (GERD), stage III chronic kidney disease (CKD), and chronic pulmonary embolism (PE). She presented with complaints of dizziness, lightheadedness, weight loss and generalized weakness that have persisted for the past two weeks. Additionally, she reports experiencing abdominal pressure and constipation over the last three days. Ms. Restrepo acknowledges that she has not been drinking adequate amounts of water recently and had a reduced appetite, although her appetite has since improved. She also mentions having had a fever. She is on 5L oxygen at home. Blood pressure in the ED was 87/39. pt has a history of chronic pulmonary embolism and takes xeralto for that. Past Medical History (PMH): Heart failure with preserved ejection fraction (HFpEF), hypertension, pulmonary arterial hypertension, emphysema, lung fibrosis, gastroesophageal reflux disease (GERD), stage III chronic kidney disease (CKD), and chronic pulmonary embolism (PE). Past Surgical History (PSH): Cholecystectomy, hysterectomy, hemorrhoid surgery Family history (FH): Breast cancer in daughter at 36 years, multiple myeloma in son EtOH: Denies alcohol use Smoking /Vapin pack year smoking history Recreational Drugs: Denies recreational drug use Residence: Lives with son Home Medications: Xarelto, Lasix, metoprolol, Adempas ,pirfenidone, esomeprazole, zolpidem, Trelegy, spironolactone, ipratropium Allergies: Levofloxacin PCP:Dr. Woo Specialist relevant to admission: Nonrelevant Review of Systems Review of Systems CONSTITUTIONAL: night sweats, Lymphadenopathy, ecchymoses,: Negative, complains of weakness and dizziness DERMATOLOGIC: Rash, New/growing/changing skin lesions: Negative HEENT: Vision change, eye pain, Rhinorrhea, sinus pain, epistaxis, dysphagia, odynophagia, globus sensation, Change in hearing, tinnitus, vertigo, otalgia, Dental problems, oral ulcers or lesions: : Negative ENDOCRINE: Weight change, heat or cold intolerance, tremor, insomnia, neck pain or swelling, Polyuria, polydipsia, polyphagia, Abnormal hair growth, change in nails: Negative CARDIOVASCULAR: Chest pain, palpitations, syncope, Edema, cyanosis, claudication, Orthopnea, paroxysmal nocturnal dyspnea: Negative PULMONARY: Shortness of breath, dyspnea with exertion, Cough, hemoptysis, wheezing, chest pain : Negative GI: Nausea, vomiting, diarrhea, melena, hematochezia: Negative, complains of abdominal pressure and constipation : Dysuria, frequency, urgency, Urinary incontinence, hematuria, foamy urine, nocturia, Change in libido, erectile dysfunction, Change in menses, dysmenorrhea, dyspaerunia, pelvic pain: : Negative MUSCULOSKELETAL: Joint swelling or pain, muscle pain, back pain: : Negative NEUROLOGIC: Headache, scotoma, Change in smell or taste, change in facial muscles, Muscle weakness, paresthesias, anesthesia, Ataxia, change in speech: Negative PSYCHIATRIC: Depression, anxiety, hallucinations, lavell, suicidal/homicidal thoughts, Binging, purging: Negative Allergies: Coded Allergies: Levofloxacin (Verified Allergy, Unknown, 04/20/23) Exam Vital Signs Vital Signs Date Time Temp Pulse Resp B/P (MAP) Pulse Ox O2 Delivery O2 Flow Rate FiO2 12/31/24 23:34 80 12/31/24 22:00 14 97/59 (72) 96 12/31/24 20:00 98.0 98.0 12/31/24 17:12 Nasal Cannula* 5 40 Exam General Appearance: Alert, Oriented X3, Cooperative, No acute distress HEENT: Atraumatic, PERRLA, EOMI, Mucous membrane moist/pink Respiratory: Clear to auscultation, Normal air movement Cardiovascular: Regular rate, Normal S1, Normal S2, No murmurs, no chest wall tenderness Abdominal: Normal bowel sounds, Soft, No tenderness, No hepatospenomegaly, No masses Extremities: No clubbing, No cyanosis, No edema, Normal pulses, No tenderness/swelling Skin: No rashes, No breakdown, No significant lesion Neuro: Normal gait, Normal speech, Strength at 5/5 X4 ext, Normal tone, Sensation intact, Cranial nerves 3-12 NL, Reflexes 2+ Psych/Mental Status: Mental status NL, Mood NL Labs/Xrays Labs Test 12/31/24 14:30 12/31/24 13:30 Range/Units White Blood Count 4.5 4.4-10.8 10^3/uL Red Blood Count 4.88 4.0-5.20 10^6/uL Hemoglobin 13.3 12.2-16.2 g/dL Hematocrit 40.6 36.0-46.0 % Mean Corpuscular Volume 83.2 80.0-100.0 fL Mean Corpuscular Hemoglobin 27.2 L 28.0-32.0 pg Mean Corpuscular Hemoglobin Concent 32.7 32.0-36.0 g/dL Red Cell Distribution Width 15.9 H 11.8-14.3 % Platelet Count 278 140-450 10^3/uL Mean Platelet Volume 7.8 6.9-10.8 fL Neutrophils (%) (Auto) 66.5 37.0-80.0 % Lymphocytes (%) (Auto) 19.2 10.0-50.0 % Monocytes (%) (Auto) 10.1 0.0-12.0 % Eosinophils (%) (Auto) 2.8 0.0-7.0 % Basophils (%) (Auto) 1.4 0.0-2.0 % Neutrophils # (Auto) 3.0 1.6-8.6 10 ^3/uL Lymphocytes # (Auto) 0.9 0.4-5.4 10 ^3/uL Monocytes # (Auto) 0.5 0-1.3 10 ^3/uL Eosinophils # (Auto) 0.1 0-0.8 10 ^3/uL Basophils # (Auto) 0.1 0-0.2 10 ^3/uL Nucleated Red Blood Cells 0.0 % Sodium Level 139 136-145 mmol/L Potassium Level 4.5 3.5-5.1 mmol/L Chloride Level 108 H 98-107 mmol/L Carbon Dioxide Level 22 20-31 mmol/L Anion Gap 9 5-15 Blood Urea Nitrogen 31 H 9-23 mg/dL Creatinine 2.40 H 0.550-1.02 mg/dL Glomerular Filtration Rate Calc 19 >90 mL/min BUN/Creatinine Ratio 12.9 10.0-20.0 Serum Glucose 107 H 74-106 mg/dL Calcium Level 11.6 H 8.7-10.4 mg/dL Troponin I High Sensitivity 8 </=34 ng/L Urine Color Light-yellow Yellow Urine Clarity Clear Clear Urine pH 5.5 5.0-9.0 Urine Specific [place] 1.020 1.001-1.035 Urine Protein Negative Negative Urine Ketones Negative Negative Urine Blood Negative Negative /uL Urine Nitrite Negative Negative Urine Bilirubin Negative Negative Urine Urobilinogen Normal Negative mg/dL Urine Leukocyte Esterase Negative Negative /uL Urine RBC None seen 0 - 4 /hpf Urine Microscopic WBC 3 0-5 /HPF Urine Squamous Epithelial Cells Few <5 /hpf Urine Bacteria None seen None Seen /hpf Urine Hyaline Casts Mod 0 - 2 /lpf Urine Mucus Few None Seen Urine Glucose Normal Normal mg/dL SEPSIS Sepsis Screen Date sepsis recognized/suspect: Dec 31, 2024 Time Sepsis recognized/suspect: 2 Recent Procedure: No On Antibiotic Therapy: No Respiratory Rate >20: No Heart Rate >90: No Temp<36 C (96.8 F) or >38.3 C: No SBP <90 or MAP <65 mmHG: No New Acute Mental Status Change: No Is the patient on CPAP, BIPAP,: No Physician Orders Admit (12/31/24 23:43) Allergies (12/31/24 23:43) Code Status (12/31/24 23:43) Complete Blood Count (01/01/25 04:00) Comprehensive Metabolic Panel (01/01/25 04:00) Condition: Fair (12/31/24 23:43) Vital Signs Date Time Temp Pulse Resp B/P (MAP) Pulse Ox O2 Delivery O2 Flow Rate FiO2 12/31/24 23:34 80 12/31/24 22:00 78 14 97/59 (72) 96 12/31/24 20:00 98.0 74 18 105/59 (74) 96 98.0 12/31/24 17:12 77 14 105/57 (73) 97 12/31/24 17:12 77 14 97 Nasal Cannula* 5 40 Laboratory Tests Test 12/31/24 14:30 White Blood Count 4.5 10^3/uL (4.4-10.8) Assessment/Plan Assessment/Plan Assessment and plan # Presyncope due to hypotension due to dehydration - Possible volume depletion - IV fluids - Hold Lasix - orthostatic vitals # Hypotension due to dehydration, resolved - IV fluids - Hold Lasix # MONIQUE on stage III CKD due to VMN due to hypotension and dehydration - IV fluids - Outpatient follow-up with PCP after discharge # Pulmonary hypertension, likely group 2, 3, and 4 - Continue Adempas -continue follow with pulm outpatient # Chronic hypoxic respiratory failure possibly due to PAH - On 5 L oxygen # Chronic HFpEF - Holding Lasix, patient volume depleted -resume GDMT # emphysema, not in exacerbation - Outpatient follow-up with PCP on discharge, patient on 5 L home oxygen # Pulmonary artery hypertension - Continue Adempas # History of lung fibrosis - Continue pirfenidone # History of essential hypertension - Continue home medications # GERD - Continue esomeprazole # Chronic pulmonary embolism - Continue Xarelto PUD prophylaxis: protonix 40mg DVT prophylaxis: on xarelto Barriers to discharge: Medical diagnosis and management in progress. Patient lives with family. Need person support for ADL. PCP: Dr. Woo Specialist Relevent To Admission: Nonrelevant Case discussed with Dr. Cohen. Code Status: Full Code. Complex patient care discussion needed. Spend total 37 minutes for bedside assessment, case discussion and management. Plan discussed with: Patient My Orders Orders - BRE PAK RESIDENT Procedure Category Date Status Time Admit ADMIT 12/31/24 Transmitted 23:43 Allergies NARCISO 12/31/24 In Process 23:43 Code Status CODE 12/31/24 Transmitted 23:43 Complete Blood Count LAB 01/01/25 Verified 04:00 Comprehensive LAB 01/01/25 Verified Metabolic Panel 04:00 Condition: Fair NARCISO 12/31/24 In Process 23:43 Date of Service: Dec 31, 2024 Billing Provider: BEATRIZ COHEN MD Common Visit Codes: 30253-[id number] INP/OBS CARE (HIGH) Secondary Visit Codes: 80298-[id number] CARE PLAN 30 MINUTES BRE PAK RESIDENT Dec 31, 2024 23:48 MERYL LOBO Jan 01, 2025 08:17
[2025-01-01] VITALS (16 sets, daily range): BP systolic 104–118; BP diastolic 52–72; PULSE 59–74; RESP 12–20; TEMP 97.1–98.2; O2SAT 90–100
--- NOTE | 2025-01-01 00:15 | ECG ---
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
[2025-01-01] MEDS: CALCITRIOL 0.25 MCG CAP PO ONE (01:04)
[2025-01-01] MEDS: POTASSIUM CHL 20 Meq TABLET PO ONE (01:04)
[2025-01-01] MEDS: SODIUM CHLORIDE 0.9% 250 ML IV ONE ×2 (01:08→10:48)
[2025-01-01 01:53] LABS: COVID19 ANTIGEN SOFIA FIA NEGATIVE (NEGATIVE)
[2025-01-01] MEDS: IPRATROPIUM BROM 0.5 MG/2.5ML INH SOL NEB SCH (07:02)
[2025-01-01 07:18] LABS: Hematocrit 39.7 % (36.0-46.0); Hemoglobin 12.8 g/dL (12.2-16.2); Mean Corpuscular Hemoglobin 27.3 pg (28.0-32.0); Mean Corpuscular Volume 84.5 fL (80.0-100.0); Nucleated Red Blood Cells % 0.1 %
[2025-01-01 07:37] LABS: Alkaline Phosphatase 85 U/L (46-116); Anion Gap 10 (5-15); BUN/Creatinine Ratio 14.4 (10.0-20.0); Carbon Dioxide 21 mmol/L (20-31); Potassium 4.5 mmol/L (3.5-5.1); Sodium 139 mmol/L (136-145); Total Protein 6.7 g/dL (5.7-8.2)
[2025-01-01 07:38] LABS: Albumin 3.9 g/dL (3.2-4.8); Bilirubin, Total 0.4 mg/dL (0.2-1.0)
[2025-01-01 07:43] LABS: Alanine Aminotransferase < 9 U/L (7-40); Blood Urea Nitrogen 26 mg/dL (9-23); Calcium 11.0 mg/dL (8.7-10.4); Chloride 108 mmol/L (98-107); Glucose 63 mg/dL (74-106)
[2025-01-01] MEDS: METOPROLOL SUCCINATE XL 50 MG TAB PO SCH (10:00)
[2025-01-01] MEDS: RIVAROXABAN 2.5 MG TAB PO SCH (10:00)
[2025-01-01] MEDS: PANTOPRAZOLE 40 MG TAB PO SCH ×2 (10:27→19:06)
[2025-01-01] MEDS: SPIRONOLACTONE 25 MG TAB PO ONE (10:30)
--- NOTE | 2025-01-01 13:21 | DVHPN2 ---
Progress Note - Dictate Date Seen: Jan 01, 2025 Medical Necessity Reason Pt with a Central, PICC or Fol: No Subjective PT WITH NEAR SYNCOPE SECONDARY TO HYPOVOLEMIA SS COMPLEX OF ABD PAIN CT ABD C/W CONSTIPATION SEVERE HYPOKALEMIA VOLUME DEPLETION PMH; PUL FIBROSIS RESP FAILURE HYPOXEMIA ORG HEART DISEASE HTN PAD AFIB HYPERCOAGULABLE HX OF PE vital signs Vital Sign Date Time Temp Pulse Resp B/P (MAP) Pulse Ox O2 Delivery O2 Flow Rate FiO2 01/01/25 11:53 92 Nasal Cannula 4.0 01/01/25 11:53 36 01/01/25 11:53 66 12 01/01/25 09:03 98.1 114/60 (78) 98.1 Total Intake and Output 12/31/24 12/31/24 01/01/25 15:00 23:00 07:00 Intake Total 0 ml Balance 0 ml medications Current Medications Medications Dose Ordered Sig/Jose Luis Route Start Time Stop Time Status Last Admin Dose Admin Metoprolol Succinate 25 mg DAILY PO 01/01/25 10:00 Pantoprazole Sodium 40 mg DAILY PO 01/01/25 10:00 01/01/25 10:27 40 MG Ipratropium [place] 0.5 mg Q6H NEB 01/01/25 06:00 01/01/25 11:53 0.5 MG Rivaroxaban 5 mg DAILY PO 01/01/25 10:00 Patient Own Medication 267 mg TID PO 01/01/25 14:00 Patient Own Medication 1 tab DAILY PO 01/01/25 10:00 laboratory and microbiology Laboratory Tests 01/01/25 05:59 Test 01/01/25 05:59 Range/Units Serum Glucose 63 L 74-106 mg/dL Problem List SYNCOPE SECONDARY TO HYPOVOLEMIA SS COMPLEX OF ABD PAIN CT ABD C/W CONSTIPATION SEVERE HYPOKALEMIA VOLUME DEPLETION PMH; 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
[2025-01-01] MEDS: PIRFENIDONE PO SCH ×2 (14:00→21:49)
--- NOTE | 2025-01-01 18:13 | DVHPNRES ---
Progress Note Date Seen: Jan 01, 2025 Resident Creating Document: MOLLY STEEN RESIDENT Medical Necessity Reason Pt with a Central, PICC or Fol: No Subjective Review of Systems Patient is an 84-year-old female with a significant medical history including heart failure with preserved ejection fraction (HFpEF), on pacemaker, hypertension, pulmonary arterial hypertension, emphysema, lung fibrosis, gastroesophageal reflux disease (GERD), stage III chronic kidney disease (CKD), and chronic pulmonary embolism (PE) came with a complaint of dizziness and lightheadedness for last 2 weeks which was getting worse lately. Patient reported dizziness mostly when she gets up from the bed but not on lying down. Patient also reported poor appetite and generalized weakness and she was not eating or drinking well for last couple of weeks. Patient also reported having constipation for last couple of days. Initial lab workup revealed serum creatinine 2.40, serum calcium 11.6. Urinalysis negative for UTI, COVID and flu negative, CT head no acute intracranial abnormality. PMH-heart failure with preserved ejection fraction (HFpEF), hypertension, pulmonary arterial hypertension, emphysema, lung fibrosis, gastroesophageal reflux disease (GERD), stage III chronic kidney disease (CKD), and chronic pulmonary embolism (PE PSH- cholecystectomy, hysterectomy, hemorrhoid surgery Family history-sister had breast carcinoma at age of 36, son has multiple myeloma Allergy- Personal History/ Social History- 40 pack year smoking history, lives with son Cardiovascular- deny acute chest pain or shortness of breath or cough or palpitation Respiratory denies cough or short of breath or wheezing Gastrointestinal- denies any rectal bleeding, nausea or vomiting Musculoskeletal-denies acute joint swelling or tenderness or redness Neurological- denies acute dysarthria, dysphagia, change in vision Psychiatry- denies depression or SI or HI Skin- denies acute rash or purpura Patient was seen today at bedside, labs and chart reviewed. Patient reported feeling better today. Patient on NC O2 4 L/min. On IV normal saline due to MONIQUE on CKD likely from dehydration. Objective vital signs Vital Sign Date Time Temp Pulse Resp B/P (MAP) Pulse Ox O2 Delivery O2 Flow Rate FiO2 01/01/25 16:48 98.2 59 17 110/59 (76) 91 98.2 01/01/25 11:53 Nasal Cannula 4.0 01/01/25 11:53 36 Total Intake and Output 12/31/24 12/31/24 01/01/25 15:00 23:00 07:00 Intake Total 0 ml Balance 0 ml medications Current Medications Medications Dose Ordered Sig/Jose Luis Route Start Time Stop Time Status Last Admin Dose Admin Metoprolol Succinate 25 mg DAILY PO 01/01/25 10:00 Pantoprazole Sodium 40 mg DAILY PO 01/01/25 10:00 01/01/25 10:27 40 MG Ipratropium [place] 0.5 mg Q6H NEB 01/01/25 06:00 01/01/25 11:53 0.5 MG Rivaroxaban 5 mg DAILY PO 01/01/25 10:00 Patient Own Medication 267 mg TID PO 01/01/25 14:00 Patient Own Medication 1 tab DAILY PO 01/01/25 10:00 Examination General examination- awake, alert, oriented HEENT- [place]ERLA, no acute nasal discharge Cardiovascular- S1-S2 audible, rate and rhythm regular, systolic murmur+ Respiratory- CTAB, no wheeze or rhonchi Gastrointestinal-nontender, bowel sound+. Nondistended Musculoskeletal-no acute joint swelling or tenderness or redness Lower extremity- no leg edema Neurological- cranial nerves intact, no acute dysarthria or dysphagia Psychiatry- denies depression or SI or HI Skin- no acute rash or purpura laboratory and microbiology Laboratory Tests 01/01/25 05:59 Test 01/01/25 05:59 Range/Units Serum Glucose 63 L 74-106 mg/dL Problem List/Assessment/Plan Problem List/Assessment/Plan #Assessment and plan # presyncope likely due to hypotension/dehydration -rule out cardiac arrhythmia -EKG atrial paced rhythm -troponin I with a normal limit -CT head no acute intracranial abnormality -elevated serum creatinine 2.4 -status post IV normal saline -monitor BMP -ordered orthostatic vitals # hypotension likely due to dehydration -ordered IV fluid -monitor blood pressure # chronic hypoxic respiratory failure # emphysema # pulmonary fibrosis -continue nebulization as prescribed # MONIQUE on CKD likely due to VMN -ordered IV normal saline -monitor BMP # hypertension # HFpEF -resume home medication metoprolol # atrial fibrillation # pulmonary embolism # peripheral arterial disease -resume home medication Xarelto # pulmonary hypertension -resumed home medication # CKD stage 3 -avoid dehydration and nephrotoxic drugs # GERD -continue pantoprazole 20 mg p.o. daily Goals of care, Code status full code ; discussed with >15 minutes PUD prophylaxis: Pantoprazole DVT prophylaxis: Xarelto Plan discussed with Dr. Jose , nursing staff, Total time spent on patient evaluation, chart review, assessment and plan, discussion discussion >35 minutes Plan discussed with: Patient, Other (RN) My Orders My Orders Orders - MOLLY STEEN Procedure Category Date Status Time Orthostatic Vital ORDERS 01/01/25 Transmitted Signs 09:22 *Consult Dr[address] Woo CONS 01/01/25 Transmitted [place] 09:25 Rivaroxaban Tablet PHA 01/01/25 In Process (Xarelto) 10:00 (Nf) Pirfenidone Base PHA 01/01/25 In Process (Pirfenidone) 14:00 (Nf) Macitentan PHA 01/01/25 In Process (Opsumit) 10:00 MOLLY STEEN Jan 01, 2025 18:13
[2025-01-01] MEDS ORDERED: ALBUTEROL SULF 2.5 MG/0.5ML(0.5%) NEB SOLN NEB PRN (18:15)
[2025-01-01] MEDS ORDERED: SODIUM CHLORIDE 0.9% 500 ML IV ONE (18:15)
[2025-01-01] MEDS: BUDESONIDE (INHALATION) 0.5 MG/2 ML NEB NEB SCH (19:19)
[2025-01-02] VITALS (14 sets, daily range): BP systolic 106–121; BP diastolic 55–64; PULSE 63–78; RESP 16–86; TEMP 97.4–98.1; O2SAT 86–100
[2025-01-02] MEDS: SODIUM CHLORIDE 0.9% 500 ML IV ONE (09:21)
[2025-01-02 10:27] LABS: Anion Gap 10 (5-15); Carbon Dioxide 22 mmol/L (20-31); Chloride 104 mmol/L (98-107); Potassium 4.8 mmol/L (3.5-5.1)
[2025-01-02 10:32] LABS: Glucose 99 mg/dL (74-106)
[2025-01-02 10:33] LABS: BUN/Creatinine Ratio 13.4 (10.0-20.0); Blood Urea Nitrogen 20 mg/dL (9-23)
[2025-01-02 10:34] LABS: Magnesium 1.9 mg/dL (1.6-2.6)
[2025-01-02 10:37] LABS: Hematocrit 38.9 % (36.0-46.0); Hemoglobin 12.8 g/dL (12.2-16.2); Mean Corpuscular Hemoglobin 27.1 pg (28.0-32.0); Mean Corpuscular Volume 82.2 fL (80.0-100.0); Nucleated Red Blood Cells % 0.2 %
[2025-01-02 10:40] LABS: Calcium 11.6 mg/dL (8.7-10.4); Sodium 136 mmol/L (136-145)
--- NOTE | 2025-01-02 13:35 | DVHPN2 ---
Progress Note - Dictate Date Seen: Jan 02, 2025 Medical Necessity Reason Pt with a Central, PICC or Fol: No Subjective PT WITH NEAR SYNCOPE SECONDARY TO HYPOVOLEMIA SS COMPLEX OF ABD PAIN CT ABD C/W CONSTIPATION SEVERE HYPOKALEMIA VOLUME DEPLETION PMH; PUL FIBROSIS RESP FAILURE HYPOXEMIA ORG HEART DISEASE HTN PAD AFIB HYPERCOAGULABLE HX OF PE vital signs Vital Sign Date Time Temp Pulse Resp B/P (MAP) Pulse Ox O2 Delivery O2 Flow Rate FiO2 01/02/25 12:45 97.8 63 17 114/62 (79) 98 97.8 01/02/25 11:53 Nasal Cannula 4.0 01/02/25 11:53 36 Total Intake and Output 01/01/25 01/01/25 01/02/25 15:00 23:00 07:00 Intake Total 600 ml 400 ml Balance 600 ml 400 ml medications Current Medications Medications Dose Ordered Sig/Jose Luis Route Start Time Stop Time Status Last Admin Dose Admin Metoprolol Succinate 25 mg DAILY PO 01/01/25 10:00 01/02/25 09:15 25 MG Ipratropium [place] 0.5 mg Q6H NEB 01/01/25 06:00 01/02/25 11:53 0.5 MG Rivaroxaban 5 mg DAILY PO 01/01/25 10:00 01/02/25 09:13 5 MG Patient Own Medication 1 tab DAILY PO 01/01/25 10:00 01/02/25 09:13 1 TAB Pantoprazole Sodium 40 mg BID@0600,1700 PO 01/01/25 18:15 01/02/25 05:05 40 MG Budesonide 0.25 mg BID NEB 01/01/25 22:00 01/02/25 06:09 0.25 MG Albuterol 2.5 mg Q6HPRN PRN NEB 01/01/25 18:15 Patient Own Medication 801 mg TIDWM PO 01/01/25 21:30 01/02/25 12:36 801 MG laboratory and microbiology Laboratory Tests 01/02/25 09:40 Test 01/02/25 09:40 Range/Units Serum Glucose 99 74-106 mg/dL Problem List SYNCOPE SECONDARY TO HYPOVOLEMIA SS COMPLEX OF ABD PAIN CT ABD C/W CONSTIPATION SEVERE HYPOKALEMIA VOLUME DEPLETION PMH; PUL FIBROSIS RESP FAILURE HYPOXEMIA ORG HEART DISEASE HTN PAD AFIB HYPERCOAGULABLE HX OF PE Assessment/Plan IV FLUID INHALER DC HOME Plan discussed with: Patient MELISSA PARK MD Jan 02, 2025 13:35
--- NOTE | 2025-01-02 13:41 | DVHDSRES ---
Discharge Summary Date of Admission Resident Creating Document: MOLLY STEEN RESIDENT Dec 31, 2024 at 23:43 Date of Discharge: Jan 02, 2025 Admitting Diagnosis Hypotension, MONIQUE, presyncope Labs/Diagnostic Data: Laboratory Results Test 01/02/25 09:40 01/01/25 12:30 01/01/25 05:59 01/01/25 01:02 White Blood Count 4.6 10^3/uL (4.4-10.8) Red Blood Count 4.73 10^6/uL (4.0-5.20) Hemoglobin 12.8 g/dL (12.2-16.2) Hematocrit 38.9 % (36.0-46.0) Mean Corpuscular Volume 82.2 fL (80.0-100.0) Mean Corpuscular Hemoglobin 27.1 pg (28.0-32.0) Mean Corpuscular Hemoglobin Concent 33.0 g/dL (32.0-36.0) Red Cell Distribution Width 16.7 % (11.8-14.3) Platelet Count 251 10^3/uL (140-450) Mean Platelet Volume 7.9 fL (6.9-10.8) Neutrophils (%) (Auto) 67.6 % (37.0-80.0) Lymphocytes (%) (Auto) 16.0 % (10.0-50.0) Monocytes (%) (Auto) 10.0 % (0.0-12.0) Eosinophils (%) (Auto) 5.1 % (0.0-7.0) Basophils (%) (Auto) 1.3 % (0.0-2.0) Neutrophils # (Auto) 3.1 10 ^3/uL (1.6-8.6) Lymphocytes # (Auto) 0.7 10 ^3/uL (0.4-5.4) Monocytes # (Auto) 0.5 10 ^3/uL (0-1.3) Eosinophils # (Auto) 0.2 10 ^3/uL (0-0.8) Basophils # (Auto) 0.1 10 ^3/uL (0-0.2) Nucleated Red Blood Cells 0.2 % Sodium Level 136 mmol/L (136-145) Potassium Level 4.8 mmol/L (3.5-5.1) Chloride Level 104 mmol/L (98-107) Carbon Dioxide Level 22 mmol/L (20-31) Anion Gap 10 (5-15) Blood Urea Nitrogen 20 mg/dL (9-23) Creatinine 1.49 mg/dL (0.550-1.02) Glomerular Filtration Rate Calc 34 mL/min (>90) BUN/Creatinine Ratio 13.4 (10.0-20.0) Serum Glucose 99 mg/dL (74-106) Hemoglobin A1c 5.6 % A1C (<5.7) Calcium Level 11.6 mg/dL (8.7-10.4) Magnesium Level 1.9 mg/dL (1.6-2.6) Vitamin B12 Level 467 pg/mL (211-911) Vitamin D 25-Hydroxy 32.9 ng/mL (30.0-100) Folic Acid 10.26 ng/mL (>5.38) Thyroid Stimulating Hormone (TSH) 3.21 uIU/mL (0.55-4.78) Total Bilirubin 0.4 mg/dL (0.2-1.0) Aspartate Amino Transferase (AST) 16 U/L (13-40) Alanine Aminotransferase (ALT) < 9 U/L (7-40) Alkaline Phosphatase 85 U/L (46-116) Total Protein 6.7 g/dL (5.7-8.2) Albumin 3.9 g/dL (3.2-4.8) Parathyroid Hormone (Intact) 15.9 pg/mL (18.4-80.1) Influenza Type A Antigen Negative (Negative) Influenza Type B Antigen Negative (Negative) SARS-CoV-2 Antigen (Rapid) Negative (NEGATIVE) Test 12/31/24 14:30 12/31/24 13:30 Troponin I High Sensitivity 8 ng/L (</=34) Urine Color Light-yellow (Yellow) Urine Clarity Clear (Clear) Urine pH 5.5 (5.0-9.0) Urine Specific [place] 1.020 (1.001-1.035) Urine Protein Negative (Negative) Urine Ketones Negative (Negative) Urine Blood Negative /uL (Negative) Urine Nitrite Negative (Negative) Urine Bilirubin Negative (Negative) Urine Urobilinogen Normal mg/dL (Negative) Urine Leukocyte Esterase Negative /uL (Negative) Urine RBC None seen /hpf (0 - 4) Urine Microscopic WBC 3 /HPF (0-5) Urine Squamous Epithelial Cells Few /hpf (<5) Urine Bacteria None seen /hpf (None Seen) Urine Hyaline Casts Mod /lpf (0 - 2) Urine Mucus Few (None Seen) Urine Glucose Normal mg/dL (Normal) Other Laboratory Tests 01/02/25 09:40 Brief Hx & Hospital Course: Patient is an 84-year-old female with a significant medical history including heart failure with preserved ejection fraction (HFpEF), on pacemaker, hypertension, pulmonary arterial hypertension, emphysema, lung fibrosis, gastroesophageal reflux disease (GERD), stage III chronic kidney disease (CKD), and chronic pulmonary embolism (PE) came with a complaint of dizziness and lightheadedness for last 2 weeks which was getting worse lately. Patient reported dizziness mostly when she gets up from the bed but not on lying down. Patient also reported poor appetite and generalized weakness and she was not eating or drinking well for last couple of weeks. Patient also reported having constipation for last couple of days. Initial lab workup revealed serum creatinine 2.40, serum calcium 11.6. Urinalysis negative for UTI, COVID and flu negative, CT head no acute intracranial abnormality. Hospital course- Hospital course patient was treated conservatively. Patient was given IV fluid. Serum creatinine trending down. Patient's blood pressure maintaining with a normal limit. Orthostatic vitals with a normal limit. Patient's symptom improved clinically. Patient was seen by Dr. Woo. And Dr. Woo cleared patient for discharge. Patient's Lasix reduced from 40 to 20 mg p.o. daily. Advised patient to continue other medications as per recommendation from Dr. Woo. Patient was advised to avoid dehydration and nephrotoxic drugs. Patient's meds were sent to the pharmacy electronically. Patient was hemodynamically stable on discharge. Assessment and plan # MONIQUE on CKD likely due to VMN # presyncope likely due to hypotension/dehydration # hypotension likely due to dehydration # chronic hypoxic respiratory failure # emphysema # pulmonary fibrosis # hypertension # HFpEF # atrial fibrillation # pulmonary embolism # peripheral arterial disease # ulmonary hypertension # CKD stage 3 # GERD Plan Reduced Lasix 40 to 20 mg p.o. daily, then follow up with Dr. Woo to adjust medication dose for Lasix Please resume other home medications Follow up with your primary care physician Dr. Woo in 1-2 weeks. Avoid dehydration and nephrotoxic drugs Operations or Procedures [address] [address] Ph: [phone] DIAGNOSTIC IMAGING Diagnostic Imaging Report : [id number] Signed PATIENT: SOL PARKER ACCT: [id number] UNIT: [id number] : 1940 LOC: ER ROOM / BED: / AGE / SEX: 84 / F ADM STATUS: REG ER SERVICE [id number] ORDERING PHYSICIAN: SARAH BETH CARTER MD PROCEDURE(s): HWOCT - HEAD WITHOUT CONTRAST REASON: dizzy ORDER NUMBER(s): [id number], ACCESSION NUMBER(s): [id number] EXAM: CT HEAD WITHOUT CONTRAST INDICATION: dizzy TECHNIQUE: CT images of the head were obtained without administration of IV contrast. CT scans at this facility use dose modulation, iterative reconstruction, and/or weight based dosing when appropriate to reduce radiation dose to as low as reasonably achievable. COMPARISON: CT SINUS WITHOUT CONTRAST on DOS: 08/29/24 FINDINGS: PARENCHYMA: No acute hemorrhage. There is no mass effect, midline shift, or herniation. There is preservation of the gupta white differentiation. Mild scattered hypoattenuation along the periventricular, centrum semiovale, and deep white matter tracts, which are nonspecific however statistically most likely represent chronic microvascular ischemic change. VENTRICLES: No hydrocephalus. EXTRA-AXIAL SPACES: No extra-axial fluid collections. OTHER: The bony structures are intact. Visualized portions of the paranasal sinuses and mastoid air cells are clear. Degenerative change of bilateral temporomandibular joints. IMPRESSION: 1. No CT evidence of an acute intracranial abnormality. ATED BY: KAYY ENRIQUEZ MD DICTATED DATE/TIME: 12/31/24 1613 SIGNED BY: KAYY ENRIQUEZ MD SIGNED DATE/TIME: 12/31/24 1613 CC: Condition at Discharge: Stable Final Diagnosis/Problems List # MONIQUE on CKD likely due to VMN # presyncope likely due to hypotension/dehydration # hypotension likely due to dehydration # chronic hypoxic respiratory failure # emphysema # pulmonary fibrosis # hypertension # HFpEF # atrial fibrillation # pulmonary embolism # peripheral arterial disease # ulmonary hypertension # CKD stage 3 # GERD Discharge Disposition: Home Discharge Instruct/Medications Follow Up/Referral: Please follow up with the primary care physician in 1-2 weeks Medications: Lasix 20 mg p.o. daily Please resume other home medications as prescribed by Dr. Woo Scheduled Calcitriol (Calcitriol), 1 CAP PO DAILY, (Reported) Doxycycline (Monohydrate) (Doxycycline), 1 TAB PO BID, (Reported) Esomeprazole Magnesium (Esomeprazole Magnesium), 40 MG PO BID, (Reported) Furosemide (Furosemide), 1 TAB PO DAILY, (Reported) Furosemide (Furosemide), 1 TAB PO DAILY Macitentan (Opsumit), 1 TAB PO DAILY, (Reported) Metoprolol Succinate (Metoprolol Succinate Er), 1 TAB PO DAILY, (Reported) Pirfenidone Base (Pirfenidone), 267 MG PO TID, (Reported) Potassium Chloride (Potassium Chloride ER), 1 TAB PO DAILY, (Reported) Riociguat Base (Adempas), 2.5 MG PO TID, (Reported) Rivaroxaban (Xarelto), 5 MG PO DAILY, (Reported) Zolpidem Tartrate (Ambien), 1 TAB PO QPM, (Reported) Miscellaneous Medications Xwcgouslhzl-Pyeqxogitsed-Dcvgd (Trelegy Ellipta 200-62.5-25 Mcg/INH), 1 AER IN, (Reported) Zoxpsnangvq-Orxhoaiigaap-Baioo (Trelegy Ellipta 200-62.5-25 Mcg/INH), 1 AER IN, (Reported) [place] Base (Adempas), 2.5 MG PO, (Reported) Discharge Statement: "Patient was advised to return to the ER or call 911 if any headaches, dizziness, shortness of breath, chest pain, abdominal pain, bleeding, fevers, or worsening of medical condition. Patient was counseled about treatment plan, medications, possible side effects, patientverbalized understanding. All questions were answered to the best of my ability. This discharge took greater then 30 minutes in planning, reviewing documentation, counseling the patient, and discussing with other team members." ASSESSMENT ASSESSMENT Assessment Date of Service: Jan 02, 2025 Billing Provider: DEDRA REYNA MD Common Visit Codes: 11094-VQA/OBS DISCH DAY >30min MOLLY STEEN RESIDENT Jan 02, 2025 13:41 DEDRA REYNA MD Jan 05, 2025 07:52
[2025-01-02] MEDS ORDERED: FURO20TA3 PO (13:58)
--- NOTE | 2025-01-03 07:36 | ECG ---
[facility] Test Date: 2025-01-01 Test Time: 12:22:59 Pat Name: SOL PARKER Department: Respirat[facility] Room: [facility]9T A Gender: F Lead Quality Technician: RADHA : 1940 Requested By: MOLLY STEEN Order Number: [id number] Reading MD: Measurements Intervals [place] Rate: 60 P: 0 [place]: 172 QRS: -50 QRSD: 85 T: 29 QT: 391 QTc: 391 Interpretive Statements Atrial-paced complexes Left anterior fascicular block Low voltage, extremity leads Consider right ventricular hypertrophy Please click the below link to view image of tracing.
--- NOTE | 2025-01-03 13:31 | ECG ---
[facility] Test Date: 2024-12-31 Test Time: 13:31:29 Pat Name: SOL PARKER Department: [facility] ED Patient [id number] [facility] Gender[facility] F Agricultural Services Director: angela : 1940 Requested By: SARAH BETH CARTER Order Number: [id number] Reading MD: Measurements Intervals [place] Rate: 72 P: 149 AL: 196 QRS: 29 QRSD: 97 T: 1 QT: 523 QTc: 573 Interpretive Statements Atrial-paced complexes No further analysis attempted due to paced rhythm Baseline wander in lead(s) V2,V4 Please click the below link to view image of tracing.
== END 2025-01-02 16:35 | disposition home or self-care (01) | DRG 640 ==
LOC: ER 13:27 → OVERFLOW 23:43 → TELE-WESTW 01-01 02:33
PROVIDERS: ADMIT Student in an Organized Health Care Education/Training Program; ATTEND Student in an Organized Health Care Education/Training Program
DX: E86.0 Dehydration (principal); N17.0 Acute kidney failure with tubular necrosis; J96.11 Chronic respiratory failure with hypoxia; I50.32 Chronic diastolic (congestive) heart failure; I13.0 Hypertensive heart and chronic kidney disease with heart failure and stage 1 through stage 4 chronic kidney disease, or unspecified chronic kidney disease; I95.9 Hypotension, unspecified; K21.9 Gastro-esophageal reflux disease without esophagitis; I48.91 Unspecified atrial fibrillation; N18.30 Chronic kidney disease, stage 3 unspecified; I73.9 Peripheral vascular disease, unspecified; I27.20 Pulmonary hypertension, unspecified; J43.9 Emphysema, unspecified; K59.00 Constipation, unspecified; E86.1 Hypovolemia; E78.5 Hyperlipidemia, unspecified; E87.6 Hypokalemia; Z86.711 Personal history of pulmonary embolism; Z79.899 Other long term (current) drug therapy; Z90.710 Acquired absence of both cervix and uterus; Z90.49 Acquired absence of other specified parts of digestive tract; Z87.891 Personal history of nicotine dependence
CPT/HCPCS: 36415; 70450; 80048; 80053; 81001; 82306; 82570; 82607; 82746; 83036; 83735; 83970; 84300; 84443; 84484; 85025; 87426; 87804; 93005; 94640; G0378

== ENCOUNTER 2025-03-19 09:41 | Outpatient (CLI) | payer MEDICARE, MEDICAID ==
[~2025-03-19 09:41] MED LIST changes: +FURO20TA3 PO
== END 2025-03-19 17:00 | disposition home or self-care (01) ==
LOC: Rad HDHVI 09:41
PROVIDERS: ATTEND Internal Medicine Cardiovascular Disease
DX: I08.1 Rheumatic disorders of both mitral and tricuspid valves (principal); I11.0 Hypertensive heart disease with heart failure; I50.33 Acute on chronic diastolic (congestive) heart failure; R00.2 Palpitations
CPT/HCPCS: 93306